=== PATIENT | male | born 1945 | race Caucasian/White ===

== ENCOUNTER → 2021-01-18 12:25 | Outpatient (BNVA) | payer MEDICARE, SELFPAY | PROVIDERS: PCP Internal Medicine Endocrinology, Diabetes & Metabolism; Visit Provider Internal Medicine Cardiovascular Disease | DX: I48.92 Unspecified atrial flutter (principal); I10 Essential (primary) hypertension; I49.3 Ventricular premature depolarization | CPT/HCPCS: 93005; 99212 ==

== ENCOUNTER → 2021-08-04 08:01 | Outpatient (REF) | payer MEDICARE, BC, SELFPAY ==
--- NOTE | ~2021-08-04 | NM_ITS ---
Lexiscan Myocardial perfusion study Indication: Preoperative cardiac vascular evaluation Technique: The patient was brought in for a Lexiscan perfusion study on 08/04/2021 and was injected 0.4 mg of Lexiscan intravenously. Within a minute of this injection 45 mCi of sestamibi was given intravenously. Images were obtained using the SPECT gamma camera interlaced with the gating device. Images were obtained in supine position. Resting perfusion study was performed on 08/05/2021. Patient was administered 45 mCi of sestamibi intravenously at rest. Images were then obtained in supine position. Total DLP 159mGy-cm. Images were processed with the software and compared side to side in short axis, horizontal long axis and vertical long axis views. Findings: Raw acquisition was reviewed. The stress perfusion study showed mildly diminished tracer uptake along the inferior wall. With CT attenuation correction, there seems to be improvement in inferior wall uptake and hence could reflect diaphragmatic attenuation artifact. Apical uptake lower with CT attenuation correction, but that is probably artifactual. The gated study shows normal LV systolic function with calculated LVEF of >70%. LV cavity is normal in size. The gated study shows normal wall thickening and contraction of segments. Resting study shows mildly diminished tracer uptake along the inferior wall that improves with CT attenuation correction. Gating at rest reveals normal wall motion with ejection fraction at 69%. The findings are consistent with no reversible defects. Mild fixed inferior defect likely from diaphragmatic attenuation artifact. NM/NM doretha perf SPECT rest & str Impression: 1. Myocardial perfusion imaging study shows likely normal myocardial perfusion. 2. Gated LVEF is > 70% during stress and 69% during rest. 3. Transient ischemic dilatation not present. EKG component of the test reported separately.
--- NOTE | 2021-08-04 08:04 | CA_ITS ---
Acquisition Time: 2021-08-04 08:04:46 Total Exercise Time: 00:02:00 Test Indications: Abnormal ECG Medications: ALBUTEROL APIXABAN DILTIAZEM INSULIN LISINOPRIL SIMVASTATIN INHALER Protocol: LEXISCAN Max HR: 094 BPM 65% of Pred: 144 BPM Max BP: 140/060 mmHG Max Work Load: 1.0 METS Pharmacological stress test with Lexiscan injection, while sitting and kicking his legs, without anginal symptoms, with isolated PACs, with normotensive response to injection, with nondiagnostic EKG for ischemia. In recovery he reported feeting flushed and strange which was treated with Aminophylline 75mg IVP to reverse Lexiscan with resolution of symptoms. Nuclear images pending. Test reviewed with Dr Arnett. Referred By: Reyes Arnett Overread By: BRENDA TIDWELL
== END ==
LOC: HO.CARD 08:01
PROVIDERS: Visit Provider Internal Medicine Cardiovascular Disease
DX: Z01.818 Encounter for other preprocedural examination (principal); I48.92 Unspecified atrial flutter; I49.3 Ventricular premature depolarization
CPT/HCPCS: 78452; 93017; A9500; J0280; J2785

== ENCOUNTER 2021-09-05 07:57 | Emergency (ER) | payer MEDICARE, BC, SELFPAY ==
--- NOTE | ~2021-09-05 | US_ITS ---
EXAMINATION: US VENOUS ULTRASOUND WITH DOPPLER LOWER EXTREMITY, RIGHT CLINICAL INFORMATION: Edema. COMPARISON: None TECHNIQUE: Ultrasound of the deep veins is performed from the hip to the calf with compression sonography and color and pulse Doppler assessment. Spectral analysis with color-flow imaging is performed. FINDINGS: There is normal venous compression and respiratory variation and augmented flow. The visualized common femoral vein, superficial femoral vein, profunda femoral vein, popliteal vein, and the trifurcation region shows no evidence of deep venous thrombosis. Peroneal vein not seen. There is no significant popliteal fossa cyst. If the patient's symptoms persist, followup ultrasound in 5 days 7 days might be of value to exclude proximal propagation from a non-visualized calf vein. US/US venous duplex LE RT IMPRESSION: No DVT demonstrated in the right lower extremity.
[2021-09-05 08:02] VITALS: BP 161/61; PULSE 83; RESP 20; TEMP 36.6; O2SAT 99; BMI 41.1
[2021-09-05 08:52] LABS: MANUAL DIFF FLAG NO
[2021-09-05 09:01] LABS: Basophils Absolute Auto 0.1 X10*3/uL (0.0-0.2); Basophils Percent Auto 1.4 % (0-2); Eosinophils Absolute Auto 0.3 X10*3/uL (0.0-0.4); Eosinophils Percent Auto 6.9 % (0-4); Hematocrit 36.8 % (42.0-52.0); Hemoglobin 11.9 g/dl (14.0-18.0); Imm Gran Abs Auto 0.01 X10*3/uL (0.00-0.03); Imm Gran Pct Auto 0.2 % (0.0-0.4); Lymphocytes Absolute Auto 0.7 X10*3/uL (1.2-4.9); Lymphocytes Percent Auto 14.5 % (20-40); Mean Corpuscular HGB Conc 32.3 g/dl (31.0-36.0); Mean Corpuscular Hemoglobin 30.2 pg (27.0-33.0); Mean Corpuscular Volume 93.4 fL (80.0-98.0); Mean Platelet Volume 9.3 fL (9.4-12.4); Monocytes Absolute Auto 0.5 X10*3/uL (0.1-1.2); Monocytes Percent Auto 10.3 % (2-11); Neutrophils Absolute Auto 3.3 x10*3/uL (2.0-8.3); Neutrophils Percent Auto 66.7 % (45-73); Platelet Count 245 X10*3/uL (160-400); Red Blood Count 3.94 X10*6/uL (4.60-5.80); Red Cell Distribution Width 12.1 % (11.0-16.0)
[2021-09-05 09:09] LABS: Lactic Acid 1.2 mmol/L (0.5-2.0)
[2021-09-05 09:14] LABS: Alanine Aminotransferase 10 U/L (0-40); Albumin Level 3.6 g/dL (3.5-5.0); Alkaline Phosphatase 62 U/L (39-117); Anion Gap 12 (12-20); Aspartate Amino Transferase 13 U/L (5-37); Bilirubin Total 0.5 mg/dL (0.0-1.0); Blood Urea Nitrogen 8 mg/dL (9-16); C Reactive Protein 0.39 mg/dL (< or = 0.50); Calcium 8.9 mg/dL (8.4-10.2); Carbon Dioxide 25 mmol/L (22-29); Chloride 108 mmol/L (96-108); Creatinine Clr Calc Pharmacy 95.1; Estimated Glomerular Filt Rate > 60; Glucose Random 91 mg/dL (60-115); Potassium 3.8 mmol/L (3.3-5.1); Sodium 141 mmol/L (135-145); Total Protein 5.8 g/dL (6.5-8.0)
[2021-09-05 09:44] LABS: COVID-19 Test Negative (Negative); IDNOW Serial# 16C4AD1C
[2021-09-05 10:27] LABS: Erythrocyte Sedimentation Rate 8 MM/HR (0-15)
--- NOTE | 2021-09-05 10:57 | ED_ITS ---
HPI - Extremity Injury (Lower) General Chief Complaint: Extremity Injury, Lower Stated Complaint: R leg pain Time Seen by Provider: 09/05/21 08:07 Source: patient Mode of arrival: ambulatory Limitations: no limitations History of Present Illness HPI Narrative: 76-year-old male who presents emergency department for evaluation of continued swelling, redness and pain of his right knee after receiving a total knee re placement on 08/10/2021 (26 days prior to arrival). The patient had his total knee replacement done at [facility]. He states that there were no complications from the surgery. He was placed Eliquis twice a day. He states that since the surgery he has noticed redness around his knee with significant swelling from his ankle to his knee. He states that this swelling and redness has not changed. He states that the pain that he was having postoperatively has improved but he still having pain in his lower extremity. He denied fever, chills, chest pain, shortness of breath, fatigue, cough, sore throat, abdominal pain, frequency, urgency or dysuria. He states that he has noticed rhinorrhea over the past 1-2 days. Patient states that his family was concerned that the leg was still swollen and they were concerned that he might have a blood clot to his leg so they encourage d him to go to the emergency department for evaluation. MD complaint: other (Right leg swelling and increased warmth) Onset (ago): day(s) () Severity: moderate Severity scale (1-10): 4 Exacerbating factors: nothing Other symptoms: none Related Data Home Medications Medication Instructions Recorded Confirmed albuterol sulfate 90 mcg/actuation 2 puff INHALATION Q4H PRN 01/18/21 01/18/21 aerosol inhaler fluticasone fur. 100 mcg-umeclid 100 INHALATION DAILY 01/18/21 01/18/21 62.5 mcg-vilant 25 mcg inhalat.powder insulin glargine 100 unit/mL (3 unit SUBCUT 01/18/21 01/18/21 mL) subcutaneous pen lisinopril 2.5 mg tablet 2.5 mg PO DAILY 01/18/21 01/18/21 simvastatin 10 mg tablet 10 mg PO BEDTIME 01/18/21 01/18/21 Previous Rx's Medication Instructions Recorded apixaban 5 mg tablet (Eliquis) 5 mg PO BID 90 Days #180 tab 12/01/20 diltiazem HCl 120 mg capsule,24 120 mg PO DAILY 90 Days #90 cap 03/17/21 hr,extended release Allergies Allergy/AdvReac Type Severity Reaction Status Date / Time No Known Allergies Allergy Unverified 03/26/20 15:26 Review of Systems Review of Systems: Yes all other systems are reviewed and are negative [facility] Past Medical History [facility] Narrative: Social history: The patient denies tobacco use. He drinks alcohol 2 times a week, denies drug use. Medical History COPD (chronic obstructive pulmonary disease) HTN (hypertension) Obesity Paroxysmal atrial flutter PVCs (premature ventricular contractions) Surgical History Hx of hernia repair Hx of knee surgery Hx of laparoscopic gastric banding Family History Family History Father No problems noted. Mother No problems noted. Social History Social History Alcohol intake: current Alcohol intake frequency: a few times a month Patient Tobacco Use Status: Former Tobacco user Use of substances other than those prescribed or required for medical reasons: No Advance Directives: Yes Advance Directives Information Provided: No Advance Directives on File: No Physical Exam Vital Signs: Vital Signs: Last Vital Signs Temp 97.8 F 09/05/21 08:02 Pulse 83 09/05/21 08:02 Resp 20 09/05/21 08:02 BP 161/61 H 09/05/21 08:02 Pulse Ox 99 09/05/21 08:02 BMI result Body Mass Index 41.1 Const: Other: Very pleasant and cooperative male patient, he does not appear to be in distress, answers all questions appropriately HENMT: Head: Yes normal to inspection, Yes normocephalic and Yes atraumatic Ears: external ears normal General nose exam: Normal external nose present Face and sinus: Yes normal facial exam Mouth: Normal oral and palatal mucosa present Throat: Yes posterior oropharynx normal Eyes: General: appearance normal, both eyes and all related structures Pupils: Equal, round and reactive pupils present Neck: Neck: Yes normal visual inspection, Yes no lymphadenopathy, Yes trachea midline and Yes supple Chest: Chest palpation & inspection: normal inspection of the chest and normal palpation of entire chest wall Resp: Effort & Inspection: normal respiratory effort and able to speak in complete sentences Auscultation: clear to auscultation bilaterally Cardio: Rate: regular rate Rhythm: regular rhythm Heart sounds: S1 normal heart sound present, S2 normal heart sound present and no murmurs GI: Inspection: Yes normal to inspection Palpation (GI): Soft to palpation, nontender and no guarding Auscultation: normal bowel sounds : General: Yes no CVA tenderness Back/Spine/Pelvis: Back: no CVA tenderness Skin: General skin exam: no rashes or lesions noted Neuro: Cranial nerves: Yes CN's II-XII intact bilaterally and Yes Equal, round and reactive pupils present Cognition (Neuro): normal cognition Motor exam (neuro): 5/5 motor strength present throughout Extrem: Other: There is nonpitting edema of the right lower extremity from the ankle to just above the knee, the knee does have some erythema with some slight increased warmth, there is no tenderness with palpation over the knee, has negative Homans sign bilaterally, his extremities neurovascular intact. Psych: Appearance: grossly normal Speech and movement: Normal speech and movement present Affect: normal affect Attitude: cooperative Thought process: Normal thought process present Thought content: Normal thought content present Course Course Course Narrative: 76-year-old male who presents emergency department for evaluation of swelling and erythema of his right lower extremity which is been persistent since his total knee replacement 26 days prior. The patient's vital signs revealed an elevated blood pressure of 161/61 otherwise were unremarkable. The patient's exam did reveal nonpitting edema of the right lower extremity from the ankle to just above the knee with some increased warmth and erythema over the knee joint. Laboratory evaluation revealed a normal WBC, non elevated CRP and ESR. Lactic acid was only 1.2. ultrasound of the right lower extremity revealed no DVT. The patient has no systemic symptoms to suggest that has an infection, his inflammatory markers are not elevated and his ultrasound was negative. Also he is on Eliquis prophylactically. Given these findings, I do not think that the patient has a DVT or infectious process and that the patient's swelling and erythema are related to postoperative changes which should improve over time. I did discuss this with the patient. The patient was given printed and verbal instructions advised return emergency department if his symptoms got worse. Blood cultures were obtained and are pending. MDM - Extremity Injury (Lower) Lab Data Result diagrams: 09/05/21 08:44 09/05/21 08:44 Labs: Lab Results 09/05/21 09/05/21 09/05/21 Range/Units 08:44 08:44 08:44 WBC 5.0 (4.8-10.8) X10*3/uL RBC 3.94 L (4.60-5.80) X10*6/uL Hgb 11.9 L (14.0-18.0) g/dl Hct 36.8 L (42.0-52.0) % MCV 93.4 (80.0-98.0) fL MCH 30.2 (27.0-33.0) pg MCHC 32.3 (31.0-36.0) g/dl RDW 12.1 (11.0-16.0) % Plt Count 245 (160-400) X10*3/uL MPV 9.3 L (9.4-12.4) fL Immature Gran % (Auto) 0.2 (0.0-0.4) % Neut % (Auto) 66.7 (45-73) % Lymph % (Auto) 14.5 L (20-40) % Sebastian % (Auto) 10.3 (2-11) % Eos % (Auto) 6.9 H (0-4) % Baso % (Auto) 1.4 (0-2) % Lymph # (Auto) 0.7 L (1.2-4.9) X10*3/uL Sebastian # (Auto) 0.5 (0.1-1.2) X10*3/uL Eos # (Auto) 0.3 (0.0-0.4) X10*3/uL Baso # (Auto) 0.1 (0.0-0.2) X10*3/uL Abs Immat Gran (auto) 0.01 (0.00-0.03) X10*3/uL Absolute Neuts (auto) 3.3 (2.0-8.3) x10*3/uL Absolute Nucleated RBC 0.000 (0.0-0.012) X10*3/uL Nucleated RBC % (auto) 0.0 (0.0-0.2) /100WBC ESR (0-15) MM/HR Sodium 141 (135-145) mmol/L Potassium 3.8 (3.3-5.1) mmol/L Chloride 108 (96-108) mmol/L Carbon Dioxide 25 (22-29) mmol/L Anion Gap 12 (12-20) BUN 8 L (9-16) mg/dL Creatinine 0.79 (0.5-1.4) mg/dL Estim Creat Clear Calc 95.1 Estimated GFR > 60 Random Glucose 91 (60-115) mg/dL Lactic Acid (0.5-2.0) mmol/L Calcium 8.9 (8.4-10.2) mg/dL Total Bilirubin 0.5 (0.0-1.0) mg/dL AST 13 (5-37) U/L ALT 10 (0-40) U/L Alkaline Phosphatase 62 (39-117) U/L C-Reactive Protein 0.39 (< or = 0.50) mg/dL Total Protein 5.8 L (6.5-8.0) g/dL Albumin 3.6 (3.5-5.0) g/dL COVID-19 ([facility]) Negative (Negative) COVID-19 Clin Com See Note 09/05/21 09/05/21 Range/Units 08:44 08:44 WBC (4.8-10.8) X10*3/uL RBC (4.60-5.80) X10*6/uL Hgb (14.0-18.0) g/dl Hct (42.0-52.0) % MCV (80.0-98.0) fL MCH (27.0-33.0) pg MCHC (31.0-36.0) g/dl RDW (11.0-16.0) % Plt Count (160-400) X10*3/uL MPV (9.4-12.4) fL Immature Gran % (Auto) (0.0-0.4) % Neut % (Auto) (45-73) % Lymph % (Auto) (20-40) % Sebastian % (Auto) (2-11) % Eos % (Auto) (0-4) % Baso % (Auto) (0-2) % Lymph # (Auto) (1.2-4.9) X10*3/uL Sebastian # (Auto) (0.1-1.2) X10*3/uL Eos # (Auto) (0.0-0.4) X10*3/uL Baso # (Auto) (0.0-0.2) X10*3/uL Abs Immat Gran (auto) (0.00-0.03) X10*3/uL Absolute Neuts (auto) (2.0-8.3) x10*3/uL Absolute Nucleated RBC (0.0-0.012) X10*3/uL Nucleated RBC % (auto) (0.0-0.2) /100WBC ESR 8 (0-15) MM/HR Sodium (135-145) mmol/L Potassium (3.3-5.1) mmol/L Chloride (96-108) mmol/L Carbon Dioxide (22-29) mmol/L Anion Gap (12-20) BUN (9-16) mg/dL Creatinine (0.5-1.4) mg/dL Estim Creat Clear Calc Estimated GFR Random Glucose (60-115) mg/dL Lactic Acid 1.2 (0.5-2.0) mmol/L Calcium (8.4-10.2) mg/dL Total Bilirubin (0.0-1.0) mg/dL AST (5-37) U/L ALT (0-40) U/L Alkaline Phosphatase (39-117) U/L C-Reactive Protein (< or = 0.50) mg/dL Total Protein (6.5-8.0) g/dL Albumin (3.5-5.0) g/dL COVID-19 ([facility]) (Negative) COVID-19 Clin Com Discharge Plan Discharge Clinical Impression: Right leg swelling, H/O total knee replacement Patient Disposition: Home, Self-Care Additional Instructions: The duplex ultrasound of your right leg revealed no evidence of a blood clot at this time, this is very reassuring. Also, since you are taking a blood thinner, a blood clot with a negative ultrasound is very unlikely. Your laboratory evaluation was also normal. Your inflammatory markers were not elevated (white blood cell count was normal, C reactive protein was normal, ESR was normal). Given these findings, I do not think that you have an infection and I believe that the redness and swelling are common after knee replacement and should im prove over time. Continue taking your medications as prescribed by your doctor. Follow-up with your doctor in 2 days. Please return to the emergency department if your symptoms get worse or if you develop any symptoms that are concerning to you. Prescriptions: No Action Eliquis 5 mg tablet 5 mg PO BID 90 Days Qty: 180 3RF diltiazem HCl 120 mg capsule,extended release 24 hr 120 mg PO DAILY 90 Days Qty: 90 3RF Basaglar KwikPen U-100 Insulin 100 unit/mL (3 mL) insulin pen subcut 0RF Trelegy Ellipta 100-62.5-25 mcg blister with device 100 inhalation DAILY 0RF albuterol sulfate 90 mcg/actuation HFA aerosol inhaler 2 puff inhalation Q4H PRN (Reason: wheezing) 0RF lisinopril 2.5 mg tablet 2.5 mg PO DAILY 0RF simvastatin 10 mg tablet 10 mg PO BEDTIME 0RF
== END 2021-09-05 11:16 | disposition home or self-care (01) ==
PROVIDERS: Emergency Provider Emergency Medicine Emergency Medical Services; PCP Internal Medicine
DX: M79.604 Pain in right leg (principal); R60.0 Localized edema; J34.89 Other specified disorders of nose and nasal sinuses; Z79.899 Other long term (current) drug therapy; Z20.822 Contact with and (suspected) exposure to COVID-19; Z87.891 Personal history of nicotine dependence
CPT/HCPCS: 36415; 80053; 83605; 85025; 85652; 86140; 87040; 87635; 93971; 99284

== ENCOUNTER → 2021-12-29 08:23 | Outpatient (REF) | payer MEDICARE, BC, SELFPAY ==
--- NOTE | 2021-12-29 08:27 | CA_ITS ---
Transthoracic Echocardiogram Patient (Last, First, Middle): Zane Tomlin J Gender: Male Date of : 1945 Age: 76 Procedure Date: 12/29/2021 Procedure Type: Transthoracic Echocardiogram Location: OP Height: 167.64 cm Weight: 113.4 kg BSA: 2.20 m2 Heart Rate: 53 bpm BP: 103 / 55 mmHg Car Refinisher: SB Referring MD: Reyes Arnett MD Automation Controls Specialist: Reyes Arnett MD Symptoms: I48.92 - Unspecified atrial flutter Study Quality: Fair/BSA/Contrast ECG Rhythm: Sinus arryhthmia bradycardia Conclusions: - 1. Technically limited study despite use of contrast agent 2. Mildly dilated left ventricle with normal LV ejection fraction of 60 65% with pseudonormal filling pattern 3. Cardiac valves not well visualized with cardiac valvular Doppler appearing within normal limits Findings Procedure Information Contrast agent, definity, is being given per protocol without apparent complications. Left Ventricle Mildly increased left ventricular cavity size. There is normal left ventricular wall thickness. The left ventricular systolic function is normal. The visually estimated ejection fraction is between 60-65%. Spectral Doppler is indicative of a pseudonormal filling pattern. Right Ventricle Mildly increased right ventricular cavity size. Atria The left atrium was not well visualized. There is lipomatous hypertrophy of the interatrial septum. There is a mobile atrial septum noted. There is no evidence of interatrial shunt. The right atrium was not well visualized. Aortic Valve The aortic valve was not well visualized. There is no aortic valve stenosis. There is no aortic valve regurgitation. Mitral Valve There is mild anterior and posterior mitral leaflet thickening. There is trace mitral valve regurgitation. There is no mitral valve stenosis. Pulmonic Valve The pulmonic valve was not well visualized. Tricuspid Valve The tricuspid valve was not well visualized. Tricuspid regurgitation envelope is inadequate for calculation of right ventricular systolic pressure. Great Vessels All visible segments of the aorta are normal in size. The pulmonary artery was not well visualized. Venous The inferior vena cava is normal in size. Pericardium/Pleural The pericardium was not well visualized. Prior Study Comparison No significant change compared to prior study dated: 06/19/2019. Measurements 2D Linear Measurements IVSd: 1.07 0.6-0.9/0.6-1.0 cm LVIDd: 5.95 3.9-5.3/4.2-5.9 cm LVIDd Index: 2.70 2.4-3.2/2.2-3.1 cm/m2 LVIDs: 3.44 2.0-3.6 cm LVPWd: 0.89 0.7-1.1 cm LA Diam: 5.20 2.7-3.8/3.0-4.0 cm LAIDs Index: 2.36 1.5-2.3 cm/m2 LV Mass: 295.05 67-162/88-224 g LV Mass Index: 134.12 43-95/49-115 g/m2 LVOT Diam: 2.20 3.0+(-)1.3 cm 2D Systolic Function EF 4C: 60.80 >55% EF 2C: 70.90 >55% EF BiP: 66.00 >55% Mitral Valve MV Pk E: 0.93 MV PK A: 0.59 MV Decel Time: 120.00 E/A: 1.60 E'Lateral: 6.30 E'Medial: 4.88 E/E' Med: 19.00 E/E' Lat: 14.70 PHT: 35.00 MVA PHT: 6.29 Decel Mcleod: 7.69 Aortic Valve AoV Pk Alan: 1.19 AoV Mn Alan: 0.91 AoV VTI: 0.29 AoV Pk Grad: 6.00 Aov Mn Grad: 4.00 LETITIA Cont.VTI: 2.83 LVOT LVOT Pk Alan: 0.95 LVOT Mn Alan: 0.65 LVOT VTI: 0.22 LVOT Pk Grad: 4.00 LVOT Mn Grad: 2.00 LVOT Diam: 2.20 LVOT Area: 3.80 Diastolic Function MV Pk E: 0.93 MV Pk A: 0.59 E/A: 1.60 E'Medial: 4.88 E/E' Med: 19.00 E' Laterial: 6.30 E/E' Lat: 14.70 Right Ventricle TAPSE (mm): 18.90 TVS' Alan: 11.60 Tricuspid Valve RA Press: 8.00 Great Vessels Aorta Sinus of Valsalva: 3.10 2.0-3.5 cm Ao Asc: 3.40 2.1-3.4 cm Pulmonary Valve PV Pk Alan: 0.84 Peak PV Grad: 3.00 Updated in Other Vendor System with Status of Final Reyes Arnett MD electronically signed on 12/30/2021 11:42:15 AM with status of Final
== END ==
LOC: HO.CARD 08:23
PROVIDERS: Visit Provider Internal Medicine Cardiovascular Disease
DX: I48.92 Unspecified atrial flutter (principal)
CPT/HCPCS: 93306; Q9957

== ENCOUNTER → 2022-01-17 12:48 | Outpatient (BNVA) | payer MEDICARE, BC, SELFPAY | PROVIDERS: PCP Internal Medicine; Visit Provider Internal Medicine Cardiovascular Disease | DX: I48.92 Unspecified atrial flutter (principal); I10 Essential (primary) hypertension; Z79.01 Long term (current) use of anticoagulants | CPT/HCPCS: 93005; 99212 ==

== ENCOUNTER 2022-07-22 08:16 | Inpatient (IN) | payer MEDICARE, BC, SELFPAY ==
[2022-07-22] VITALS (10 sets, daily range): BP systolic 97–138; BP diastolic 47–76; PULSE 58–89; RESP 14–24; TEMP 36.1–37.7; O2SAT 95–97; BMI 40.8
--- NOTE | ~2022-07-22 | XR_ITS ---
EXAMINATION: XR CHEST CLINICAL INFORMATION: Chest radiographs COMPARISON: Chest radiographs and chest CTA both dated 06/08/2019. TECHNIQUE: Frontal view of the chest was obtained. FINDINGS: Coarsely calcified pleural plaques are again seen bilaterally most pronounced in the right upper lobe with mild interval increase in calcification. The lungs otherwise appear clear. The heart and mediastinal structures are unremarkable. XR/XR chest 1V IMPRESSION: Coarsely calcified pleural plaques bilaterally with mild interval increase in calcifications since the 2019 studies. No definitive acute abnormality.
--- NOTE | 2022-07-22 08:21 | ECG_ITS ---
Test Reason : CHEST PAIN Blood Pressure : / mmHG Vent. Rate : 077 BPM Atrial Rate : 077 BPM P-R Int : 312 ms QRS Dur : 136 ms QT Int : 358 ms P-R-T Axes : 091 022 087 degrees QTc Int : 405 ms Atrial flutter Right bundle branch block Cannot rule out Inferior infarct (cited on or before 22-JUL-2022) Abnormal ECG When compared with ECG of 22-JUL-2022 08:44, No significant changes seen Referred By: Bob Goodson Electronically Signed By:Yemi Wing
--- NOTE | 2022-07-22 08:37 | ECG_ITS ---
Test Reason : sob Blood Pressure : / mmHG Vent. Rate : 085 BPM Atrial Rate : 000 BPM P-R Int : 000 ms QRS Dur : 136 ms QT Int : 374 ms P-R-T Axes : 000 013 059 degrees QTc Int : 445 ms Atrial flutter with variabke block Right bundle branch block Possible Inferior infarct , age undetermined Abnormal ECG When compared with ECG of 17-JUL-2019 13:54, Atrial flutter has replaced Sinus rhythm Referred By: Bob Goodson Electronically Signed By:Yemi Wing
--- NOTE | 2022-07-22 08:39 | ED_ITS ---
HPI - SOB/Dyspnea General Chief Complaint: Dyspnea Stated Complaint: Diff Breathing ?Afib Time Seen by Provider: 07/22/22 08:28 Source: patient Mode of arrival: ambulatory Limitations: no limitations History of Present Illness HPI Narrative: 77-year-old male with history of atrial flutter on Eliquis came in for fly luation of shortness of breath. Patient's symptoms started 5 days ago with shortness of breath mostly with exertion, patient also noted increased swelling in bilateral lower extremities, no palpitation, do not feel rapid heartbeat. No sick contacts, no recent travel, patient is a former smoker. Patient also been getting exertional chest pressure with the shortness of breath that is localized to the mid chest with no radiation only worsening by exercise and get better with rest. Patient with history of COPD use CPAP at nighttime does not need supplemental oxygen. Related Data Home Medications Medication Instructions Recorded Confirmed albuterol sulfate 90 mcg/actuation 2 puff inhalation Q4H PRN wheezing 01/18/21 01/17/22 aerosol inhaler fluticasone fur. 100 mcg-umeclid 100 inhalation DAILY 01/18/21 01/17/22 62.5 mcg-vilant 25 mcg inhalat.powder insulin glargine 100 unit/mL (3 unit subcut 01/18/21 01/17/22 mL) subcutaneous pen lisinopril 2.5 mg tablet 2.5 mg PO DAILY 01/18/21 01/17/22 simvastatin 10 mg tablet 10 mg PO BEDTIME 01/18/21 01/17/22 Previous Rx's Medication Instructions Recorded diltiazem HCl 120 mg capsule,24 120 mg PO DAILY 90 days #90 caps 11/24/21 hr,extended release apixaban 5 mg tablet (Eliquis) 5 mg PO BID #180 tabs 02/21/22 Allergies Allergy/AdvReac Type Severity Reaction Status Date / Time No Known Allergies Allergy Verified 01/17/22 13:09 Review of Systems Review of Systems: All other systems are reviewed and are negative Constitutional: Reports as per HPI and Reports no additional constitutional complaints Eyes: Reports as per HPI and Reports no additional eye complaints Reports system reviewed and no additional complaints, except as documented Cardiovascular: Reports as per HPI and Reports no additional cardiovascular complaints Respiratory: Reports as per HPI and Reports no additional respiratory complaints Gastrointestinal: Reports as per HPI and Reports no additional gastrointestinal complaints Genitourinary: Reports no additional female genitourinary complaints Musculoskeletal: Reports no additional musculoskeletal complaints Skin/Breast: Reports system reviewed and no additional complaints, except as docu Psychiatric: Reports no additional psychiatric complaints Endocrine: Reports no additional endocrine complaints Hematologic/Lymphatic: Reports no additional hematologic/lymphatic complaints Allergic/Immunologic: Reports no additional allergic/immunologic complaints Reports system reviewed and no additional complaints, except as documented and Reports Abnormal speech present [facility] Past Medical History Medical History COPD (chronic obstructive pulmonary disease) HTN (hypertension) Obesity Paroxysmal atrial flutter PVCs (premature ventricular contractions) Surgical History Hx of hernia repair Hx of knee surgery Hx of laparoscopic gastric banding Family History Family History Father No problems noted. Mother No problems noted. Social History Social History Alcohol intake: never Patient Tobacco Use Status: Former Tobacco user Smoked in Last 30 Days: No Use of substances other than those prescribed or required for medical reasons: No Advance Directives: Yes Advance Directives Information Provided: Yes Advance Directives on File: No Physical Exam Vital Signs: Vital Signs: Last Vital Signs Temp 99.9 F 07/22/22 13:59 Pulse 75 07/22/22 13:59 Resp 14 07/22/22 13:59 BP 115/69 07/22/22 13:59 Pulse Ox 96 07/22/22 13:59 O2 Del Method 07/22/22 13:59 BMI result Body Mass Index 40.8 Vital signs have been reviewed as appeared to be correct. Blood pressure normal. Heart rate normal. Respiration rate normal. Temperature normal. Oxygen saturation normal. Appearance: Alert. Oriented X3. No acute distress. Head: Normal external exam. Normocephalic. Atraumatic. No Pan signs noted. No raccoon eyes noted Eyes: PERRLA. EOMI. Conjunctiva and sclera normal. Eyelids normal. ENT: TM's Normal. Pharynx normal. Uvula midline. Moist mucous membranes. No trismus noted. No drooling noted. No muffled voice noted. Neck: Normal inspection. Neck supple. FROM. No adenopathy. Thyroid Normal. No meningeal signs. No neck mass noted. CVS: Normal heart rate and rhythm. Heart sound normal. No murmurs noted. Pulses normal throughout. Respiratory: No respiratory distress. Painless inspiration. Breath sounds normal. No wheezes/rales/rhonchi noted. Chest nontender. No accessory muscle usage noted or decreased air movement noted. Abdomen: Soft and nontender. Bowel sounds normal in all 4 quadrants. No distention noted. No organomegaly noted. No visible injury noted. Back: No CVA tenderness. Full range of motion noted. Skin: Skin warm and dry. Normal skin color. Normal skin turgor. No rashes/lesions/lacerations noted. Extremities: +2 lower extremity edema. Extremities exhibit normal range of motion. Extremities nontender. Neuro: Oriented X 3. Cranial nerve exam: II-XII are grossly intact No motor deficit. No sensory deficit. Reflexes normal. Course Course Course Narrative: 77-year-old male came in with exertional chest pain and shortness of breath mostly with exertion and relieved with rest. 1. Exam is consistent with CHF will start diuresis in the ED with Lasix 40 mg. 2. Cardiology consult is appreciated recommending to admit the patient, continue with Eliquis, diuresis if needed, CPAP at night time. Medications Administered Discontinued Medications Generic Name Dose Route Start Last Admin Trade Name Freq PRN Reason Stop Dose Admin Aspirin 81 mg 07/22/22 10:32 07/22/22 10:42 Aspirin Enteric Coated 81 Mg Tablet. PO 07/22/22 10:33 81 mg ONCE ONE Administration Metoprolol Tartrate 25 mg 07/22/22 10:34 07/22/22 10:42 Metoprolol Tartrate 25 Mg Tablet PO 07/22/22 10:35 25 mg ONCE ONE Administration Protocol Nitroglycerin 0.5 inch 07/22/22 10:32 07/22/22 10:42 Nitroglycerin 2 % Oint 1 Gm Packet TRANSDERMA 07/22/22 10:33 0.5 inch ONCE ONE Administration Medical Decision Making Differential Diagnosis Differential Diagnoses: The differential diagnosis associated with the presentation includes (CHF, ACS, non STEMI, pneumonia, COPD exacerbation.) Admission/Observation Consideration of admission/observation: Escalation of care including admission/o bservation considered Consult Healthcare Provider Management of the patient was discussed with: Hospitalist and Gas Operator (Dr. Wing.) Lab Data MDM Lab Attestation statement: I reviewed the patient's lab results. 07/22/22 09:04 07/22/22 09:04 Labs: Lab Results 07/22/22 07/22/22 07/22/22 Range/Units 09:04 09:04 09:04 WBC 9.9 (4.8-10.8) X10*3/uL RBC 4.46 L (4.60-5.80) X10*6/uL Hgb 13.6 L (14.0-18.0) g/dl Hct 39.3 L (42.0-52.0) % MCV 88.1 (80.0-98.0) fL MCH 30.5 (27.0-33.0) pg MCHC 34.6 (31.0-36.0) g/dl RDW 12.2 (11.0-16.0) % Plt Count 185 (160-400) X10*3/uL MPV 9.5 (9.4-12.4) fL Immature Gran % (Auto) 0.5 H (0.0-0.4) % Neut % (Auto) 82.4 H (45-73) % Lymph % (Auto) 5.0 L (20-40) % [place] % (Auto) 10.2 (2-11) % Eos % (Auto) 1.7 (0-4) % Baso % (Auto) 0.2 (0-2) % Lymph # (Auto) 0.5 L (1.2-4.9) X10*3/uL [place] # (Auto) 1.0 (0.1-1.2) X10*3/uL Eos # (Auto) 0.2 (0.0-0.4) X10*3/uL Baso # (Auto) 0.0 (0.0-0.2) X10*3/uL Abs Immat Gran (auto) 0.05 H (0.00-0.03) X10*3/uL Absolute Neuts (auto) 8.2 (2.0-8.3) x10*3/uL Absolute Nucleated RBC 0.000 (0.0-0.012) X10*3/uL Nucleated RBC % (auto) 0.0 (0.0-0.2) /100WBC Sodium 133 L (135-145) mmol/L Potassium 4.0 (3.3-5.1) mmol/L Chloride 101 (96-108) mmol/L Carbon Dioxide 23 (22-29) mmol/L Anion Gap 13 (12-20) BUN 17 H (9-16) mg/dL Creatinine 0.91 (0.5-1.4) mg/dL Estim Creat Clear Calc 80.9 Estimated GFR > 60 Random Glucose 191 H (60-115) mg/dL Lactic Acid (0.5-2.0) mmol/L Calcium 8.3 L D (8.4-10.2) mg/dL Total Bilirubin 1.2 H (0.0-1.0) mg/dL Direct Bilirubin 0.5 (0.0-0.5) mg/dL AST 21 (5-37) U/L ALT 34 (0-40) U/L Alkaline Phosphatase 68 (39-117) U/L Troponin I High Sens 103.2 H* (<3.5-35.0) ng/L B-Natriuretic Peptide (<100) pg/mL Total Protein 5.6 L (6.5-8.0) g/dL Albumin 3.3 L (3.5-5.0) g/dL Lipase 220 H (8-78) U/L Influenza Type A (PCR) (Negative) Influenza Type B (PCR) (Negative) RSV RNA Qual (PCR) (Negative) SARS-CoV-2 RNA (RT-PCR) (Negative) 07/22/22 07/22/22 07/22/22 Range/Units 09:04 09:04 09:04 WBC (4.8-10.8) X10*3/uL RBC (4.60-5.80) X10*6/uL Hgb (14.0-18.0) g/dl Hct (42.0-52.0) % MCV (80.0-98.0) fL MCH (27.0-33.0) pg MCHC (31.0-36.0) g/dl RDW (11.0-16.0) % Plt Count (160-400) X10*3/uL MPV (9.4-12.4) fL Immature Gran % (Auto) (0.0-0.4) % Neut % (Auto) (45-73) % Lymph % (Auto) (20-40) % [place] % (Auto) (2-11) % Eos % (Auto) (0-4) % Baso % (Auto) (0-2) % Lymph # (Auto) (1.2-4.9) X10*3/uL [place] # (Auto) (0.1-1.2) X10*3/uL Eos # (Auto) (0.0-0.4) X10*3/uL Baso # (Auto) (0.0-0.2) X10*3/uL Abs Immat Gran (auto) (0.00-0.03) X10*3/uL Absolute Neuts (auto) (2.0-8.3) x10*3/uL Absolute Nucleated RBC (0.0-0.012) X10*3/uL Nucleated RBC % (auto) (0.0-0.2) /100WBC Sodium (135-145) mmol/L Potassium (3.3-5.1) mmol/L Chloride (96-108) mmol/L Carbon Dioxide (22-29) mmol/L Anion Gap (12-20) BUN (9-16) mg/dL Creatinine (0.5-1.4) mg/dL Estim Creat Clear Calc Estimated GFR Random Glucose (60-115) mg/dL Lactic Acid 1.2 (0.5-2.0) mmol/L Calcium (8.4-10.2) mg/dL Total Bilirubin (0.0-1.0) mg/dL Direct Bilirubin (0.0-0.5) mg/dL AST (5-37) U/L ALT (0-40) U/L Alkaline Phosphatase (39-117) U/L Troponin I High Sens (<3.5-35.0) ng/L B-Natriuretic Peptide 742 H (<100) pg/mL Total Protein (6.5-8.0) g/dL Albumin (3.5-5.0) g/dL Lipase (8-78) U/L Influenza Type A (PCR) NEGATIVE (Negative) Influenza Type B (PCR) NEGATIVE (Negative) RSV RNA Qual (PCR) NEGATIVE (Negative) SARS-CoV-2 RNA (RT-PCR) NEGATIVE (Negative) 07/22/22 Range/Units 12:31 WBC (4.8-10.8) X10*3/uL RBC (4.60-5.80) X10*6/uL Hgb (14.0-18.0) g/dl Hct (42.0-52.0) % MCV (80.0-98.0) fL MCH (27.0-33.0) pg MCHC (31.0-36.0) g/dl RDW (11.0-16.0) % Plt Count (160-400) X10*3/uL MPV (9.4-12.4) fL Immature Gran % (Auto) (0.0-0.4) % Neut % (Auto) (45-73) % Lymph % (Auto) (20-40) % [place] % (Auto) (2-11) % Eos % (Auto) (0-4) % Baso % (Auto) (0-2) % Lymph # (Auto) (1.2-4.9) X10*3/uL [place] # (Auto) (0.1-1.2) X10*3/uL Eos # (Auto) (0.0-0.4) X10*3/uL Baso # (Auto) (0.0-0.2) X10*3/uL Abs Immat Gran (auto) (0.00-0.03) X10*3/uL Absolute Neuts (auto) (2.0-8.3) x10*3/uL Absolute Nucleated RBC (0.0-0.012) X10*3/uL Nucleated RBC % (auto) (0.0-0.2) /100WBC Sodium (135-145) mmol/L Potassium (3.3-5.1) mmol/L Chloride (96-108) mmol/L Carbon Dioxide (22-29) mmol/L Anion Gap (12-20) BUN (9-16) mg/dL Creatinine (0.5-1.4) mg/dL Estim Creat Clear Calc Estimated GFR Random Glucose (60-115) mg/dL Lactic Acid (0.5-2.0) mmol/L Calcium (8.4-10.2) mg/dL Total Bilirubin (0.0-1.0) mg/dL Direct Bilirubin (0.0-0.5) mg/dL AST (5-37) U/L ALT (0-40) U/L Alkaline Phosphatase (39-117) U/L Troponin I High Sens 102.9 H* (<3.5-35.0) ng/L B-Natriuretic Peptide (<100) pg/mL Total Protein (6.5-8.0) g/dL Albumin (3.5-5.0) g/dL Lipase (8-78) U/L Influenza Type A (PCR) (Negative) Influenza Type B (PCR) (Negative) RSV RNA Qual (PCR) (Negative) SARS-CoV-2 RNA (RT-PCR) (Negative) Independent Interpretation I performed an independent interpretation of an: EKG (Atrial flutter with 2-1 better, left axis deviation, RBBB, no change from previous EKG.) and Plain X-Ray (Chronic pleural Stephen calcification bilaterally) Radiology Impression Discussion of test interpretation with radiology: I have reviewed the radiologist's reading. Discharge Plan Discharge Clinical Impression: Congestive heart failure, Non-ST elevation HI (NSTEMI) Patient Disposition: Admitted As Inpatient Prescriptions: No Action diltiazem HCl 120 mg capsule,extended release 24 hr 120 mg PO DAILY 90 Days Qty: 90 3RF Eliquis 5 mg tablet 5 mg PO BID Qty: 180 2RF Antoniaglar Odalis U-100 Insulin 100 unit/mL (3 mL) insulin pen subcut Trelegy Ellipta 100-62.5-25 mcg blister with device 100 inhalation DAILY albuterol sulfate 90 mcg/actuation HFA aerosol inhaler 2 puff inhalation Q4H PRN (Reason: wheezing) lisinopril 2.5 mg tablet 2.5 mg PO DAILY simvastatin 10 mg tablet 10 mg PO BEDTIME
[2022-07-22 09:10] LABS: MANUAL DIFF FLAG NO
[2022-07-22 09:13] LABS: Basophils Percent Auto 0.2 % (0-2); Eosinophils Absolute Auto 0.2 X10*3/uL (0.0-0.4); Eosinophils Percent Auto 1.7 % (0-4); Hematocrit 39.3 % (42.0-52.0); Hemoglobin 13.6 g/dl (14.0-18.0); Imm Gran Abs Auto 0.05 X10*3/uL (0.00-0.03); Imm Gran Pct Auto 0.5 % (0.0-0.4); Lymphocytes Absolute Auto 0.5 X10*3/uL (1.2-4.9); Mean Corpuscular HGB Conc 34.6 g/dl (31.0-36.0); Mean Corpuscular Hemoglobin 30.5 pg (27.0-33.0); Mean Corpuscular Volume 88.1 fL (80.0-98.0); Mean Platelet Volume 9.5 fL (9.4-12.4); Monocytes Percent Auto 10.2 % (2-11); Neutrophils Absolute Auto 8.2 x10*3/uL (2.0-8.3); Neutrophils Percent Auto 82.4 % (45-73); Platelet Count 185 X10*3/uL (160-400); Red Blood Count 4.46 X10*6/uL (4.60-5.80); Red Cell Distribution Width 12.2 % (11.0-16.0); White Blood Count 9.9 X10*3/uL (4.8-10.8)
[2022-07-22 09:25] LABS: Lactic Acid 1.2 mmol/L (0.5-2.0)
[2022-07-22 09:31] LABS: Alanine Aminotransferase 34 U/L (0-40); Albumin Level 3.3 g/dL (3.5-5.0); Alkaline Phosphatase 68 U/L (39-117); Anion Gap 13 (12-20); Aspartate Amino Transferase 21 U/L (5-37); Bilirubin Direct 0.5 mg/dL (0.0-0.5); Bilirubin Total 1.2 mg/dL (0.0-1.0); Blood Urea Nitrogen 17 mg/dL (9-16); Calcium 8.3 mg/dL (8.4-10.2); Carbon Dioxide 23 mmol/L (22-29); Chloride 101 mmol/L (96-108); Creatinine Clr Calc Pharmacy 80.9; Estimated Glomerular Filt Rate > 60; Glucose Random 191 mg/dL (60-115); Lipase 220 U/L (8-78); Sodium 133 mmol/L (135-145); Total Protein 5.6 g/dL (6.5-8.0)
[2022-07-22 09:35] LABS: B Type Natriuretic Peptide 742 pg/mL (<100)
[2022-07-22 09:49] LABS: Influenza A PCR NEGATIVE (Negative); Influenza B PCR NEGATIVE (Negative); Resp Syncy Virus RNA Qual PCR NEGATIVE (Negative); SARS COV2 PCR INHOUSE NEGATIVE (Negative)
[2022-07-22 10:02] LABS: Troponin-I High Sensitivity 103.2 ng/L (<3.5-35.0)
[2022-07-22] MEDS: Nitroglycerin 2 % Oint 1 GM Packet 0.5 INCH TRANSDERMA (10:42)
[2022-07-22] MEDS: Aspirin Enteric Coated 81 MG TABLET.DR PO (10:42)
[2022-07-22] MEDS: Metoprolol Tartrate 25 MG TABLET PO (10:42)
[2022-07-22 13:14] LABS: Troponin-I High Sensitivity 102.9 ng/L (<3.5-35.0)
--- NOTE | 2022-07-22 14:22 | PM.IMHP ---
History of Present Illness Date of Service: 07/22/22 Attending physician on admission: Eliecer Gil Chief Complaint: Chest pain and worsening SOB Pt is a 77-year-old male with a PMH significant for?atrial flutter with successful cardioversion 3 years ago on Eliquis and diltiazem followed by Dr. Arnett, COPD, HTN, HLD, insulin-dependent DM 2, and CARLOS on CPAP who presents to the ED for?chest pressure and worsening SOB and cough for a little over a week. SOB is primarily exertional, but can also occur at rest. Cough has been productive, sometimes brown, black, or flecked with red. Chest pressure centered in the mid chest and does not radiate, lasts a few minutes at a time, mostly associated with coughing but can also occur at rest or with exertion. Patient endorses anorexia over the past week, says he has lost over 10 lb due to not eating. He has also been lightheaded and dizzy if he gets up quickly. Patient states that he has chronic lower leg swelling and has not noticed any increase to his edema. Today patient states he took off his CPAP machine and it took him 2 hours to catch his breath. He presents today primarily after noticing that his heart rate climbed to 110s and 120s and he could feel palpitations. Of note patient is a former smoker who quit over 40 years ago. In the ED labs were significant for no leukocytosis, troponin of 103.2 with repeat flat at 102.9, elevated lipase of 220 1, elevated BNP of 742, lactic acid WNL. CXR showed coarsely calcified pleural plaques bilaterally with mild interval increase in calcification since 2019, but no definitive acute abnormality. EKG showed AFib/atrail flutter with inverted T-waves in anterior leads and right bundle-branch block, repeat showed sinus rhythm with 1st degree AV block with nonspecific T-wave inversions. In the ED patient was treated with metoprolol, nitroglycerin, aspirin. Cardiology consulted and feels his presentation is more consistent with heart failure rather than stable or unstable angina. Patient will be admitted to telemetry for treatment and evaluation of CHF with IV Lasix. Review of Systems Review of Systems: SOB Productive cough Palpitations Chronic LLE Chest pressure Yes all other systems are reviewed and are negative [facility] Medical History COPD (chronic obstructive pulmonary disease) HTN (hypertension) Obesity Paroxysmal atrial flutter PVCs (premature ventricular contractions) Family History Father No problems noted. Mother No problems noted. Surgical History Hx of hernia repair Hx of knee surgery Hx of laparoscopic gastric banding Social History Alcohol intake: never Patient Tobacco Use Status: Former Tobacco user Smoked in Last 30 Days: No Use of substances other than those prescribed or required for medical reasons: No Advance Directives: Yes Advance Directives Information Provided: Yes Advance Directives on File: No Meds Allergies Allergy/AdvReac Type Severity Reaction Status Date / Time No Known Allergies Allergy Verified 01/17/22 13:09 Home Medications Medication Instructions Recorded Confirmed Last Taken Type albuterol sulfate 90 mcg/actuation 2 puff inhalation Q4H PRN wheezing 01/18/21 01/17/22 Unknown History aerosol inhaler fluticasone fur. 100 mcg-umeclid 100 inhalation DAILY 01/18/21 01/17/22 Unknown History 62.5 mcg-vilant 25 mcg inhalat.powder insulin glargine 100 unit/mL (3 unit subcut 01/18/21 01/17/22 Unknown History mL) subcutaneous pen lisinopril 2.5 mg tablet 2.5 mg PO DAILY 01/18/21 01/17/22 Unknown History simvastatin 10 mg tablet 10 mg PO BEDTIME 01/18/21 01/17/22 Unknown History Physical Exam Vital Signs and Narrative: Vital Signs: Last Vital Signs Temp 99.9 F 07/22/22 13:59 Pulse 75 07/22/22 13:59 Resp 14 07/22/22 13:59 BP 115/69 07/22/22 13:59 Pulse Ox 96 07/22/22 13:59 O2 Del Method 07/22/22 13:59 BMI result Body Mass Index 40.8 Constitutional: Alert, in no acute distress. Mental Status: Oriented to person, place and time. Eyes: Pupils are equal, round, and reactive to light. Ear, Nose, and Throat: Oropharynx clear, mucous membranes moist. Ears and nose without deformities. Trachea midline. Respiratory: Clear to auscultation bilaterally. No wheezing, rales, or rhonchi. Cardiovascular: S1, S2 regular. No murmurs, rubs, or gallops. Gastrointestinal: Abdomen soft, non-tender, non-distended. Normal bowel sounds. Neurologic: Cranial nerves II-XI are grossly intact. No focal neurological deficits. Moves all extremities spontaneously. Skin: No rashes or lesions noted. Musculoskeletal: No cyanosis or clubbing. Extremities: 1+ pitting edema bilaterally. Psychiatric: Normal mood and affect. Results Labs 07/22/22 09:04 07/22/22 09:04 Labs: Laboratory Results - last 24 hr 07/22/22 07/22/22 07/22/22 09:04 09:04 09:04 MCV 88.1 MCH 30.5 MCHC 34.6 RDW 12.2 Plt Count 185 MPV 9.5 Immature Gran % (Auto) 0.5 H Neut % (Auto) 82.4 H Lymph % (Auto) 5.0 L [place] % (Auto) 10.2 Eos % (Auto) 1.7 Baso % (Auto) 0.2 Lymph # (Auto) 0.5 L [place] # (Auto) 1.0 Eos # (Auto) 0.2 Baso # (Auto) 0.0 Abs Immat Gran (auto) 0.05 H Absolute Neuts (auto) 8.2 Absolute Nucleated RBC 0.000 Nucleated RBC % (auto) 0.0 Anion Gap 13 Estim Creat Clear Calc 80.9 Estimated GFR > 60 Random Glucose 191 H Lactic Acid Calcium 8.3 L D Total Bilirubin 1.2 H Direct Bilirubin 0.5 AST 21 ALT 34 Alkaline Phosphatase 68 Troponin I High Sens 103.2 H* B-Natriuretic Peptide Total Protein 5.6 L Albumin 3.3 L Lipase 220 H Influenza Type A (PCR) Influenza Type B (PCR) RSV RNA Qual (PCR) SARS-CoV-2 RNA (RT-PCR) 07/22/22 07/22/22 07/22/22 09:04 09:04 09:04 MCV MCH MCHC RDW Plt Count MPV Immature Gran % (Auto) Neut % (Auto) Lymph % (Auto) [place] % (Auto) Eos % (Auto) Baso % (Auto) Lymph # (Auto) [place] # (Auto) Eos # (Auto) Baso # (Auto) Abs Immat Gran (auto) Absolute Neuts (auto) Absolute Nucleated RBC Nucleated RBC % (auto) Anion Gap Estim Creat Clear Calc Estimated GFR Random Glucose Lactic Acid 1.2 Calcium Total Bilirubin Direct Bilirubin AST ALT Alkaline Phosphatase Troponin I High Sens B-Natriuretic Peptide 742 H Total Protein Albumin Lipase Influenza Type A (PCR) NEGATIVE Influenza Type B (PCR) NEGATIVE RSV RNA Qual (PCR) NEGATIVE SARS-CoV-2 RNA (RT-PCR) NEGATIVE 07/22/22 12:31 MCV MCH MCHC RDW Plt Count MPV Immature Gran % (Auto) Neut % (Auto) Lymph % (Auto) [place] % (Auto) Eos % (Auto) Baso % (Auto) Lymph # (Auto) [place] # (Auto) Eos # (Auto) Baso # (Auto) Abs Immat Gran (auto) Absolute Neuts (auto) Absolute Nucleated RBC Nucleated RBC % (auto) Anion Gap Estim Creat Clear Calc Estimated GFR Random Glucose Lactic Acid Calcium Total Bilirubin Direct Bilirubin AST ALT Alkaline Phosphatase Troponin I High Sens 102.9 H* B-Natriuretic Peptide Total Protein Albumin Lipase Influenza Type A (PCR) Influenza Type B (PCR) RSV RNA Qual (PCR) SARS-CoV-2 RNA (RT-PCR) Imaging Radiologist's Impressions: Impressions Chest X-Ray 07/22/22 09:13 IMPRESSION: Coarsely calcified pleural plaques bilaterally with mild interval increase in calcifications since the 2019 studies. No definitive acute abnormality. Assessment and Plan (1) Congestive heart failure: Status: Acute (2) Paroxysmal atrial flutter: Status: Acute Plan Pt is a 77-year-old male with a PMH significant for?atrial flutter with successful cardioversion 3 years ago on Eliquis and diltiazem followed by Dr. Arnett, COPD, HTN, HLD, insulin-dependent DM 2, and CARLOS on CPAP who presents to the ED for?chest pressure and worsening SOB and cough for a little over a week. Cardiology consulted and feels his presentation is more consistent with heart failure rather than stable or unstable angina. Patient will be admitted to telemetry for treatment and evaluation of CHF with IV Lasix. CHF, new onset SOB, cough, elevated BNP of 742, 1+ pitting lower leg edema Possibly secondary to atrial flutter Furosemide 40 mg IV b.i.d. Hold diltiazem Follow-up lytes, MG, I/O Echocardiogram report Cardiology consult Atrial flutter Continue Eliquis Stop diltiazem Admit to telemetry Chest pain/tightness Likely secondary to CHF and coughing, less likely ACS Troponins flat, EKGs with no evidence of acute ischemic changes Monitor on telemetry Cardiac consult Insulin-dependent DM2 Hold home meds SSI, Lantus Morbid obesity likely related to excess calories Encourage weight loss CARLOS CPAP at night HLD Continue statin HTN Continue lisinopril Full Code Attending:?Dr. Gil DVT Prophylaxis: on Eliquis Pt will require a hospitalization of at least two nights for treatment of?CHF with IV Lasix. Time Spent With Patient Time: Total time managing care of this patient today ____ minutes. Quality Stroke Does the patient have a stroke diagnosis?: No VTE Prior VTE?: No VTE Risk Level:: Medical - moderate - high VTE Device Contraindication: Treatment Not Indicated VTE Drug Contraindication: N/A - Med Ordered
--- NOTE | 2022-07-22 14:32 | PC.NURSE ---
DR. BALL(CARDIOLOGY) AT BEDSIDE PT AWARE OF PLAN OF CARE.
--- NOTE | 2022-07-22 14:58 | PC.NURSE ---
HOSP PA-C AT BEDSIDE, PT AWARE OF PLAN OF CARE FOR ADMISSION.
--- NOTE | 2022-07-22 15:00 | CA_ITS ---
Transthoracic Echocardiogram Limited Patient (Last, First, Middle): Zane Tomlin J Gender: Male Date of : 1945 Age: 77 Procedure Date: 07/22/2022 Procedure Type: Transthoracic Echocardiogram Limited Location: [facility] [place] Height: 167.64 cm Weight: 114.76 kg BSA: 2.21 m2 Heart Rate: bpm BP: 115 / 69 mmHg [employer]: Referring MD: Yemi Wing MD Symptoms: CHF Study Quality: Fair ECG Rhythm: Atrial Fibrillation Conclusions: - Normal left ventricular size and systolic function. There is moderately increased left ventricular wall thickness. The visually estimated ejection fraction is between 55-60%. - Mildly increased right ventricular cavity size. There is mildly decreased right ventricular systolic function. - The right ventricular systolic pressure is 39 mmHg. Moderately elevated right atrial pressure. Mild pulmonary hypertension is present. - Limited study Findings Left Ventricle Normal left ventricular size and systolic function. There is moderately increased left ventricular wall thickness. The visually estimated ejection fraction is between 55-60%. There is no evidence of regional wall motion abnormalities. Diastolic function is indeterminate on the basis of available data. Right Ventricle Mildly increased right ventricular cavity size. There is mildly decreased right ventricular systolic function. Tricuspid Valve The right ventricular systolic pressure is 39 mmHg. Moderately elevated right atrial pressure. Mild pulmonary hypertension is present. Venous The inferior vena cava is dilated and collapses greater than 50% with inspiration. Pericardium/Pleural There is no evidence of pericardial effusion. Prior Study Comparison No significant change compared to prior study dated: 12/29/2021. Measurements 2D Linear Measurements IVSd: 1.40 0.6-0.9/0.6-1.0 cm LVIDd: 4.94 3.9-5.3/4.2-5.9 cm LVIDd Index: 2.24 2.4-3.2/2.2-3.1 cm/m2 LVIDs: 3.26 2.0-3.6 cm LVPWd: 1.40 0.7-1.1 cm LV Mass: 356.86 67-162/88-224 g LV Mass Index: 161.47 43-95/49-115 g/m2 2D Systolic Function EF 4C: 52.40 >55% EF 2C: 63.70 >55% EF BiP: 60.60 >55% Tricuspid Valve TR Pk Alan: 2.69 TR Pk Grad: 29.00 RVSP: 39.00 Updated in Other Vendor System with Status of Final Yemi Wing MD electronically signed on 07/22/2022 11:50:13 PM with status of Final
--- NOTE | 2022-07-22 15:00 | PM.CNCAR ---
History of Present Illness History of Present Illness Date of Service: 07/22/22 Requesting physician: Bob Goodson Chief complaint: Diff Breathing ?Afib Narrative: 77-year-old gentleman was background history of atrial fibrillation and atrial flutter. He has background of hypertension. He is presenting for shortness of breath with progressive worsening. He has peripheral edema as well as PND episodes. He also experiencing some chest discomfort off and on which lasts for few seconds to a minute or 2. Feels the pressure-like sensation in his chest. He is saying this has been happening for long time. He has lung disease and background of COPD. He has been on Eliquis and diltiazem for atrial arrhythmia. Denying any significant palpitations right now but off and on has been experiencing some palpitations. He also has noticed that his heart rate has been faster in the last few days and has noticed his heart rate to be 110+. Taking medications regularly. Labs were reviewed and showed elevated BNP. [facility] Past Medical History Medical History COPD (chronic obstructive pulmonary disease) HTN (hypertension) Obesity Paroxysmal atrial flutter PVCs (premature ventricular contractions) Family History Family History Father No problems noted. Mother No problems noted. Surgical History Surgical History Hx of hernia repair Hx of knee surgery Hx of laparoscopic gastric banding Social History Social History Alcohol intake: never Patient Tobacco Use Status: Former Tobacco user Smoked in Last 30 Days: No Use of substances other than those prescribed or required for medical reasons: No Advance Directives: Yes Advance Directives Information Provided: Yes Advance Directives on File: No Meds Allergies Allergy/AdvReac Type Severity Reaction Status Date / Time No Known Allergies Allergy Verified 01/17/22 13:09 Home Medications Medication Instructions Recorded Confirmed Last Taken Type albuterol sulfate 90 mcg/actuation 2 puff inhalation Q4H PRN wheezing 01/18/21 01/17/22 Unknown History aerosol inhaler fluticasone fur. 100 mcg-umeclid 100 inhalation DAILY 01/18/21 01/17/22 Unknown History 62.5 mcg-vilant 25 mcg inhalat.powder insulin glargine 100 unit/mL (3 unit subcut 01/18/21 01/17/22 Unknown History mL) subcutaneous pen lisinopril 2.5 mg tablet 2.5 mg PO DAILY 01/18/21 01/17/22 Unknown History simvastatin 10 mg tablet 10 mg PO BEDTIME 01/18/21 01/17/22 Unknown History Physical Exam Vital Signs: Vital Signs: Last Vital Signs Temp 99.9 F 07/22/22 13:59 Pulse 75 07/22/22 13:59 Resp 14 07/22/22 13:59 BP 115/69 07/22/22 13:59 Pulse Ox 96 07/22/22 13:59 O2 Del Method 07/22/22 13:59 BMI result Body Mass Index 40.8 GENERAL APPEARANCE: in no acute distress, pleasant. NECK: no carotid bruit, + jugular venous distention. SKIN: no suspicious lesions, warm and dry. HEART: no murmurs, regular rate and rhythm. LUNGS: Mild end-expiratory wheeze. ABDOMEN: soft, nontender. EXTREMITIES: + edema. PERIPHERAL PULSES: equal. NEUROLOGIC: No gross deficits, AAO X 3 Objective Labs and Meds 07/22/22 09:04 07/22/22 09:04 Lab results: Laboratory Results - last 24 hr 07/22/22 07/22/22 07/22/22 09:04 09:04 09:04 WBC 9.9 RBC 4.46 L Hgb 13.6 L Hct 39.3 L MCV 88.1 MCH 30.5 MCHC 34.6 RDW 12.2 Plt Count 185 MPV 9.5 Immature Gran % (Auto) 0.5 H Neut % (Auto) 82.4 H Lymph % (Auto) 5.0 L [place] % (Auto) 10.2 Eos % (Auto) 1.7 Baso % (Auto) 0.2 Lymph # (Auto) 0.5 L [place] # (Auto) 1.0 Eos # (Auto) 0.2 Baso # (Auto) 0.0 Abs Immat Gran (auto) 0.05 H Absolute Neuts (auto) 8.2 Absolute Nucleated RBC 0.000 Nucleated RBC % (auto) 0.0 Sodium 133 L Potassium 4.0 Chloride 101 Carbon Dioxide 23 Anion Gap 13 BUN 17 H Creatinine 0.91 Estim Creat Clear Calc 80.9 Estimated GFR > 60 Random Glucose 191 H Lactic Acid Calcium 8.3 L D Total Bilirubin 1.2 H Direct Bilirubin 0.5 AST 21 ALT 34 Alkaline Phosphatase 68 Troponin I High Sens 103.2 H* B-Natriuretic Peptide Total Protein 5.6 L Albumin 3.3 L Lipase 220 H Influenza Type A (PCR) Influenza Type B (PCR) RSV RNA Qual (PCR) SARS-CoV-2 RNA (RT-PCR) 07/22/22 07/22/22 07/22/22 09:04 09:04 09:04 WBC RBC Hgb Hct MCV MCH MCHC RDW Plt Count MPV Immature Gran % (Auto) Neut % (Auto) Lymph % (Auto) [place] % (Auto) Eos % (Auto) Baso % (Auto) Lymph # (Auto) [place] # (Auto) Eos # (Auto) Baso # (Auto) Abs Immat Gran (auto) Absolute Neuts (auto) Absolute Nucleated RBC Nucleated RBC % (auto) Sodium Potassium Chloride Carbon Dioxide Anion Gap BUN Creatinine Estim Creat Clear Calc Estimated GFR Random Glucose Lactic Acid 1.2 Calcium Total Bilirubin Direct Bilirubin AST ALT Alkaline Phosphatase Troponin I High Sens B-Natriuretic Peptide 742 H Total Protein Albumin Lipase Influenza Type A (PCR) NEGATIVE Influenza Type B (PCR) NEGATIVE RSV RNA Qual (PCR) NEGATIVE SARS-CoV-2 RNA (RT-PCR) NEGATIVE 07/22/22 12:31 WBC RBC Hgb Hct MCV MCH MCHC RDW Plt Count MPV Immature Gran % (Auto) Neut % (Auto) Lymph % (Auto) [place] % (Auto) Eos % (Auto) Baso % (Auto) Lymph # (Auto) [place] # (Auto) Eos # (Auto) Baso # (Auto) Abs Immat Gran (auto) Absolute Neuts (auto) Absolute Nucleated RBC Nucleated RBC % (auto) Sodium Potassium Chloride Carbon Dioxide Anion Gap BUN Creatinine Estim Creat Clear Calc Estimated GFR Random Glucose Lactic Acid Calcium Total Bilirubin Direct Bilirubin AST ALT Alkaline Phosphatase Troponin I High Sens 102.9 H* B-Natriuretic Peptide Total Protein Albumin Lipase Influenza Type A (PCR) Influenza Type B (PCR) RSV RNA Qual (PCR) SARS-CoV-2 RNA (RT-PCR) Imaging Radiologist's impression: Impressions Chest X-Ray 07/22/22 09:13 IMPRESSION: Coarsely calcified pleural plaques bilaterally with mild interval increase in calcifications since the 2019 studies. No definitive acute abnormality. Assessment and Plan (1) Congestive heart failure: Status: Acute (2) HTN (hypertension): Status: Acute (3) Paroxysmal atrial flutter: Status: Acute Plan [age] gentleman presenting for congestive heart failure. He has history of atrial flutter and previously was cardioverted. His EKG currently is showing background atrial flutter but rates are well controlled. Recommend Lasix 40 mg IV b.i.d.. Check echocardiogram to assess LV for any structural issues. Stop the diltiazem for now. If heart rate is fast then I will try beta janet or digoxin. Further chest discomfort, it is quite atypical and has been present for long time. He previously had a Lexiscan in July 2021 which was okay. For now continue the Eliquis and no need to heparinize the patient. Will plan about ischemic evaluation as he improves from the heart failure point of view. Thank you for allowing me to participate in the care of your patient. Please feel free to contact me if you have any questions. Time Spent With Patient Time: Total time managing care of this patient today ____ minutes. Procedures Date of Service Date of Service: 07/22/22
--- NOTE | 2022-07-22 15:23 | PC.NURSE ---
BEDSIDE ECHOCARDIOGRAM IS BEING DONE AT THIS TIME.
--- NOTE | 2022-07-22 16:33 | PHA.MEDREC ---
Pharmacy Consult ? Medication Reconciliation Pharmacy has completed the medication reconciliation.
[2022-07-22] MEDS: 0.9 % Sodium Chloride Flush 3 ML SYRINGE IVFLUSH ×2 (17:13→20:56)
[2022-07-22 17:47] LABS: Glucose, Whole Blood 247 mg/dL (60-115)
--- NOTE | 2022-07-22 17:51 | MHC.CM.PN ---
IMM 07/22. CM met with admitted patient with bed assignment pending. A&Ox4. Lives w . Uses cane/walker for longer ambulation. Has no services. Pfizer x4. HCP at home. HCP/ Lucrecia Tomlin ([phone]). D/C plan: Home without services. will transport home. CM to follow for discharge needs.
[2022-07-22] MEDS: Insulin Lispro 100 UNIT/ML 3 ML VIAL SUBCUT ×2 (18:45→20:56)
[2022-07-22] MEDS: Furosemide 40 MG/4 ML VIAL IVPUSH (18:47)
[2022-07-22 19:04] LABS: Appearance Urine Clear; Color Urine Dark Yellow; Glucose Urine UA Negative (Negative); Leukocyte Esterase Urine Small (1+) (Negative); Nitrite Urine Negative (Negative); Specific Gravity - Urine 1.025 (1.005-1.025); UMIC TRIGGER UACC YES; Urine Blood Negative (Negative); Urine Ketones Trace mg/dL (Negative); Urine Protein 30 (1+) mg/dL (Neg-Trace)
[2022-07-22 19:11] LABS: Bacteria Urine None Seen (None Seen); Hyaline Casts Urine 0-2 /LPF (0-2); RBC Urine 0-2 /HPF (0-2); UACC Culture Trigger YES; WBC Urine 0-5 /HPF (0-5)
--- NOTE | 2022-07-22 19:15 | PC.NURSE ---
rn to rn report given to brittany andrews aware of plan of care for transfer to [facility].
[2022-07-22 20:23] LABS: Glucose, Whole Blood 182 mg/dL (60-115)
--- NOTE | 2022-07-23 | ECG_ITS ---
Test Reason : sob Blood Pressure : / mmHG Vent. Rate : 082 BPM Atrial Rate : 000 BPM P-R Int : 000 ms QRS Dur : 154 ms QT Int : 404 ms P-R-T Axes : 000 014 066 degrees QTc Int : 472 ms Atrial fibrillation Right bundle branch block Possible Inferior infarct (cited on or before 22-JUL-2022) Abnormal ECG When compared with ECG of 22-JUL-2022 10:35, Atrial fibrillation has replaced Sinus rhythm QT has lengthened Referred By: Mckayla Sunshine Electronically Signed By:Yemi Wing
[2022-07-23 03:36] VITALS: BP 145/70; PULSE 87; RESP 16; TEMP 36; O2SAT 95
[2022-07-23 05:57] LABS: Anion Gap 17 (12-20); Blood Urea Nitrogen 18 mg/dL (9-16); Calcium 8.3 mg/dL (8.4-10.2); Carbon Dioxide 21 mmol/L (22-29); Chloride 99 mmol/L (96-108); Creatinine Clr Calc Pharmacy 79.2; Estimated Glomerular Filt Rate > 60; Glucose Random 186 mg/dL (60-115); Magnesium 1.6 mg/dL (1.6-2.6); Potassium 3.7 mmol/L (3.3-5.1); Sodium 133 mmol/L (135-145)
[2022-07-23 06:40] VITALS: BMI 40.6
[2022-07-23 07:26] LABS: Glucose, Whole Blood 166 mg/dL (60-115)
[2022-07-23] MEDS: 0.9 % Sodium Chloride Flush 3 ML SYRINGE IVFLUSH ×3 (07:59→20:42)
[2022-07-23] MEDS: Apixaban 5 MG TABLET PO ×2 (07:59→20:43)
[2022-07-23] MEDS: Furosemide 40 MG/4 ML VIAL IVPUSH ×2 (07:59→17:03)
[2022-07-23] MEDS: lisinopriL 2.5 MG TABLET PO (07:59)
[2022-07-23 08:00] VITALS: BP 148/75; PULSE 98; RESP 16; TEMP 35.7; O2SAT 95
[2022-07-23] MEDS: Insulin Lispro 100 UNIT/ML 3 ML VIAL SUBCUT ×4 (08:06→20:42)
[2022-07-23 11:32] LABS: Glucose, Whole Blood 212 mg/dL (60-115)
--- NOTE | 2022-07-23 13:43 | P.PNCA_ITS ---
Subjective Subjective Date of Service: 07/23/22 Interval history: Seen and examined at bedside. Breathing improving. No further CP. Physical Exam Vital Signs: Last Vital Signs Temp 96.3 F L 07/23/22 08:00 Pulse 98 07/23/22 08:00 Resp 16 07/23/22 08:00 BP 148/75 H 07/23/22 08:00 Pulse Ox 95 07/23/22 08:00 O2 Del Method 07/23/22 08:00 BMI result Body Mass Index 40.6 GENERAL APPEARANCE: in no acute distress, pleasant. NECK: no carotid bruit, mild jugular venous distention. SKIN: no suspicious lesions, warm and dry. HEART: no murmurs, regular rate and rhythm. LUNGS: Mild end-expiratory wheeze. ABDOMEN: soft, nontender. EXTREMITIES: no edema. PERIPHERAL PULSES: equal. NEUROLOGIC: No gross deficits, AAO X 3 Objective Labs and Meds 07/22/22 09:04 07/23/22 05:16 Lab results: Laboratory Results - last 24 hr 07/22/22 07/22/22 07/22/22 17:43 18:56 20:17 Sodium Potassium Chloride Carbon Dioxide Anion Gap BUN Creatinine Estim Creat Clear Calc Estimated GFR POC Glucose 247 H 182 H Random Glucose Calcium Magnesium Urine Color Dark Yellow Urine Appearance Clear Urine pH 6.0 Ur Specific [place] 1.025 Urine Protein 30 (1+) H Urine Glucose (UA) Negative Urine Ketones Trace Urine Blood Negative Urine Nitrite Negative Ur Leukocyte Esterase Small (1+) H Urine RBC 0-2 Urine WBC 0-5 Ur Squamous Epith Cells 3-5 Urine Bacteria None Seen Hyaline Casts 0-2 07/23/22 07/23/22 07/23/22 05:16 07:22 11:27 Sodium 133 L Potassium 3.7 Chloride 99 Carbon Dioxide 21 L Anion Gap 17 BUN 18 H Creatinine 0.93 Estim Creat Clear Calc 79.2 Estimated GFR > 60 POC Glucose 166 H 212 H Random Glucose 186 H Calcium 8.3 L Magnesium 1.6 Urine Color Urine Appearance Urine pH Ur Specific [place] Urine Protein Urine Glucose (UA) Urine Ketones Urine Blood Urine Nitrite Ur Leukocyte Esterase Urine RBC Urine WBC Ur Squamous Epith Cells Urine Bacteria Hyaline Casts Progress Note: A&P Assessment and plan (1) Congestive heart failure: Status: Acute (2) Paroxysmal atrial flutter: Status: Acute Plan 77-year-old gentleman presenting with heart failure in the setting of atrial flutter. Previously had atrial flutter and underwent cardioversion. Volume status is improving. Continue IV diuretics today. Potentially can be changed to oral diuretics tomorrow but will examine him 1st. Continue Eliquis as before. He will need cardioversion on Monday. Adding beta-janet for rate control. Would avoid Cardizem for now. Thank you for allowing me to participate in the care of your patient. Please feel free to contact me if you have any questions. Time Spent With Patient Time: Total time managing care of this patient today ____ minutes. Progress Note: Quality Stroke Does the patient have a stroke diagnosis?: No Procedures Date of Service Date of Service: 07/23/22
[2022-07-23 15:25] VITALS: BP 127/63; PULSE 77; RESP 17; TEMP 36.8; O2SAT 97
[2022-07-23 15:34] LABS: Glucose, Whole Blood 186 mg/dL (60-115)
--- NOTE | 2022-07-23 15:49 | HO.PM.IMPN ---
Subjective Subjective Date of Service: 07/23/22 Interval History: seen and examined this morning follow up for chf no overnight events breathing better, no chest pain Review of Systems Review of Systems: Yes all other systems are reviewed and are negative Constitutional Constitutional: Denies chills and Denies fever(s) Cardiovascular Cardiovascular: Denies chest pain, Denies palpitations and Denies dyspnea Respiratory Respiratory: Denies cough and Denies dyspnea Endocrine Endocrine: Denies palpitations Physical Exam Vital Signs: Vital Signs: Last Vital Signs Temp 98.2 F 07/23/22 15:25 Pulse 77 07/23/22 15:25 Resp 17 07/23/22 15:25 BP 127/63 07/23/22 15:25 Pulse Ox 97 07/23/22 15:25 O2 Del Method 07/23/22 15:25 BMI result Body Mass Index 40.6 Const: General: cooperative, comfortable, alert and awake Nutritional Appearance: obese Orientation/consciousness: patient oriented x3 Resp: Effort & Inspection: normal respiratory effort and able to speak in complete sentences Auscultation: clear to auscultation bilaterally Cardio: Rate: regular rate Heart sounds: S1 normal heart sound present and S2 normal heart sound present GI: Inspection: No distended Palpation (GI): Soft to palpation and nontender Neuro: General: patient oriented x3 and CN's II-XI intact bilaterally Extrem: Other: trace ankle edema Objective Data Active Medications Acetaminophen (Acetaminophen 325 Mg Tablet) 650 mg PO Q6H PRN PRN Reason: Pain, Mild (Pain Scale 1-3) Apixaban (Apixaban 5 Mg Tablet) 5 mg PO BID [facility] Last Admin: 07/23/22 07:59 Dose: 5 mg Documented By: COTEMA Atorvastatin Calcium (Atorvastatin Calcium 10 Mg Tablet) 10 mg PO BEDTIME [facility] Dextrose (Dextrose 50 % 25 Gm/50 Ml Syringe) 25 gm IVPUSH Q15M PRN; Protocol PRN Reason: per Hypoglycemia Standing Ord. Docusate Sodium (Docusate Sodium 100 Mg Capsule) 100 mg PO DAILY PRN PRN Reason: Constipation Furosemide (Furosemide 40 Mg/4 Ml Vial) 40 mg IVPUSH BID@0900,1800 [facility]; Protocol Last Admin: 07/23/22 07:59 Dose: 40 mg Documented By: COTEMA Glucose (Glucose Gel 15 Gm Gel..Gram.) 15 gm PO Q15M PRN; Protocol PRN Reason: per Hypoglycemia Standing Ord. Insulin Human Lispro (Insulin Lispro 100 Unit/Ml 3 Ml Vial) 0 unit SUBCUT QIDACHS [facility]; Protocol Last Admin: 07/23/22 11:54 Dose: 4 unit Documented By: KADEEM Lisinopril (Lisinopril 2.5 Mg Tablet) 2.5 mg PO DAILY [facility]; Protocol Last Admin: 07/23/22 07:59 Dose: 2.5 mg Documented By: KADEEM Metoprolol Tartrate (Metoprolol Tartrate 25 Mg Tablet) 25 mg PO BID [facility]; Protocol Non-Formulary Medication (Guxysxrswbb-Vzxzvzktr-Nngkgedg [Trelegy Ellipta]) 1 puff INHALE DAILY [facility] Ondansetron HCl (Ondansetron Hcl 4 Mg/2 Ml Vial) 4 mg IVPUSH Q8H PRN PRN Reason: Nausea and Vomiting Sodium Chloride (0.9 % Sodium Chloride Flush 3 Ml Syringe) 3 ml IVFLUSH QSHIFT [facility] Last Admin: 07/23/22 07:59 Dose: 3 ml Documented By: KADEEM Labs 07/22/22 09:04 07/23/22 05:16 Labs: Laboratory Results - last 24 hr 07/22/22 07/22/22 07/22/22 17:43 18:56 20:17 Anion Gap Estim Creat Clear Calc Estimated GFR POC Glucose 247 H 182 H Random Glucose Calcium Magnesium Urine Color Dark Yellow Urine Appearance Clear Urine pH 6.0 Ur Specific [place] 1.025 Urine Protein 30 (1+) H Urine Glucose (UA) Negative Urine Ketones Trace Urine Blood Negative Urine Nitrite Negative Ur Leukocyte Esterase Small (1+) H Urine RBC 0-2 Urine WBC 0-5 Ur Squamous Epith Cells 3-5 Urine Bacteria None Seen Hyaline Casts 0-2 07/23/22 07/23/22 07/23/22 05:16 07:22 11:27 Anion Gap 17 Estim Creat Clear Calc 79.2 Estimated GFR > 60 POC Glucose 166 H 212 H Random Glucose 186 H Calcium 8.3 L Magnesium 1.6 Urine Color Urine Appearance Urine pH Ur Specific [place] Urine Protein Urine Glucose (UA) Urine Ketones Urine Blood Urine Nitrite Ur Leukocyte Esterase Urine RBC Urine WBC Ur Squamous Epith Cells Urine Bacteria Hyaline Casts 07/23/22 15:27 Anion Gap Estim Creat Clear Calc Estimated GFR POC Glucose 186 H Random Glucose Calcium Magnesium Urine Color Urine Appearance Urine pH Ur Specific [place] Urine Protein Urine Glucose (UA) Urine Ketones Urine Blood Urine Nitrite Ur Leukocyte Esterase Urine RBC Urine WBC Ur Squamous Epith Cells Urine Bacteria Hyaline Casts Microbiology Microbiology Results: Microbiology 07/22/22 Unknown Urine Culture - Preliminary Urine clean catch - Urine carvajal top No growth to date. 07/22/22 09:05 Blood Culture - Preliminary Blood - Venous No growth after 24 hours. 07/22/22 09:04 Blood Culture - Preliminary Blood - Venous No growth after 24 hours. Assessment and Plan (1) Congestive heart failure: Status: Acute (2) Paroxysmal atrial flutter: Status: Acute Plan Pt is a 77-year-old male with a PMH significant for?atrial flutter with successful cardioversion 3 years ago on Eliquis and diltiazem followed by Dr. Arnett, COPD, HTN, HLD, insulin-dependent DM 2, and CARLOS on CPAP who presents to the ED for?chest pressure and worsening SOB and cough for a little over a week. Cardiology consulted and feels his presentation is more consistent with heart failure rather than stable or unstable angina. Patient will be admitted to telemetry for treatment and evaluation of CHF with IV Lasix. acute chf previous echo with preserved EF secondary to atrial flutter continue 40 mg IV b.i.d. Follow-up lytes, MG, I/O Echocardiogram report Cardiology following Atrial flutter HR controlled Continue Eliquis Stop diltiazem, started on BB likely CV on monday Chest pain/tightness atypical. Troponins flat, EKGs with no evidence of acute ischemic changes likely r/t demand from CHF Insulin-dependent DM2 SSI, POCs resume on insulin if pocs elevated Morbid obesity BMI 40.6 likely contributing to sob CARLOS CPAP at night HLD Continue statin HTN Continue lisinopril, metoprolol Full Code Attending:?Dr. Bonilla DVT Prophylaxis: on Eliquis Requires ongoing inpatient hospitalization for management of acute CHF and probable need for cardioversion Time Spent With Patient Time: Total time managing care of this patient today ____ minutes. Quality Stroke Does the patient have a stroke diagnosis?: No VTE Prior VTE?: No VTE Risk Level:: Medical - moderate - high VTE Device Contraindication: Treatment Not Indicated VTE Drug Contraindication: N/A - Med Ordered
[2022-07-23 19:53] VITALS: BP 135/82; PULSE 88; RESP 16; TEMP 36.2; O2SAT 93
[2022-07-23 20:07] LABS: Glucose, Whole Blood 236 mg/dL (60-115)
[2022-07-23 20:24] VITALS: PULSE 82; RESP 20; O2SAT 94
[2022-07-23] MEDS: Metoprolol Tartrate 25 MG TABLET PO (20:42)
[2022-07-23] MEDS: Atorvastatin Calcium 10 MG TABLET PO (20:43)
[2022-07-24 03:16] VITALS: BP 133/66; PULSE 77; RESP 18; TEMP 36; O2SAT 94
[2022-07-24 07:08] VITALS: BP 133/62; PULSE 90; RESP 16; TEMP 37.1; O2SAT 97
[2022-07-24 07:27] LABS: Glucose, Whole Blood 182 mg/dL (60-115)
[2022-07-24 07:27] LABS: Anion Gap 13 (12-20); Blood Urea Nitrogen 17 mg/dL (9-16); Calcium 8.4 mg/dL (8.4-10.2); Carbon Dioxide 29 mmol/L (22-29); Chloride 94 mmol/L (96-108); Creatinine Clr Calc Pharmacy 84.4; Estimated Glomerular Filt Rate > 60; Glucose Random 184 mg/dL (60-115); Potassium 3.8 mmol/L (3.3-5.1); Sodium 132 mmol/L (135-145)
[2022-07-24] MEDS: 0.9 % Sodium Chloride Flush 3 ML SYRINGE IVFLUSH ×3 (08:10→20:27)
[2022-07-24] MEDS: Apixaban 5 MG TABLET PO ×2 (08:10→20:23)
[2022-07-24] MEDS: lisinopriL 2.5 MG TABLET PO (08:10)
[2022-07-24] MEDS: Insulin Lispro 100 UNIT/ML 3 ML VIAL SUBCUT ×4 (08:10→20:24)
[2022-07-24] MEDS: Metoprolol Tartrate 25 MG TABLET PO ×2 (08:10→20:24)
[2022-07-24] MEDS: Furosemide 40 MG/4 ML VIAL IVPUSH (08:10)
[2022-07-24 10:39] LABS: Appearance Urine Clear; Color Urine Yellow; Glucose Urine UA Negative (Negative); Leukocyte Esterase Urine Negative (Negative); Nitrite Urine Negative (Negative); Urine Blood Negative (Negative); Urine Ketones Negative (Negative); Urine Protein Negative (Neg-Trace)
--- NOTE | 2022-07-24 11:20 | P.PNCA_ITS ---
Subjective Subjective Date of Service: 07/24/22 Interval history: Seen examined at bedside. Feeling better. Overall improved. Physical Exam Vital Signs: Last Vital Signs Temp 98.7 F 07/24/22 07:08 Pulse 90 07/24/22 07:08 Resp 16 07/24/22 07:08 BP 133/62 07/24/22 07:08 Pulse Ox 97 07/24/22 07:08 O2 Del Method 07/24/22 07:08 BMI result Body Mass Index 40.6 GENERAL APPEARANCE: in no acute distress, pleasant. NECK: no carotid bruit, no significant jugular venous distention. SKIN: no suspicious lesions, warm and dry. HEART: no murmurs, regular rate and rhythm. LUNGS: Clear to auscultation. ABDOMEN: soft, nontender. EXTREMITIES: no edema. PERIPHERAL PULSES: equal. NEUROLOGIC: No gross deficits, AAO X 3 Objective Labs and Meds 07/22/22 09:04 07/24/22 05:42 Lab results: Laboratory Results - last 24 hr 07/23/22 07/23/22 07/23/22 11:27 15:27 19:56 Sodium Potassium Chloride Carbon Dioxide Anion Gap BUN Creatinine Estim Creat Clear Calc Estimated GFR POC Glucose 212 H 186 H 236 H Random Glucose Calcium Urine Color Urine Appearance Urine pH Ur Specific [place] Urine Protein Urine Glucose (UA) Urine Ketones Urine Blood Urine Nitrite Ur Leukocyte Esterase 07/24/22 07/24/22 07/24/22 05:42 07:08 10:18 Sodium 132 L Potassium 3.8 Chloride 94 L Carbon Dioxide 29 Anion Gap 13 BUN 17 H Creatinine 0.87 Estim Creat Clear Calc 84.4 Estimated GFR > 60 POC Glucose 182 H Random Glucose 184 H Calcium 8.4 Urine Color Yellow Urine Appearance Clear Urine pH 6.0 Ur Specific [place] 1.010 Urine Protein Negative Urine Glucose (UA) Negative Urine Ketones Negative Urine Blood Negative Urine Nitrite Negative Ur Leukocyte Esterase Negative Progress Note: A&P Assessment and plan (1) Congestive heart failure: Status: Acute (2) Paroxysmal atrial flutter: Status: Acute Plan 77-year-old gentleman presenting with congestive heart failure and atrial flutter. Heart rate control is good. Diuresed with IV Lasix. I think he can be changed to p.o. Lasix 40 mg b.i.d.. Continue to hold diltiazem. Toprol 25 mg b.i.d.. Keep NPO for potential cardioversion tomorrow. Thank you for allowing me to participate in the care of your patient. Please feel free to contact me if you have any questions. Time Spent With Patient Time: Total time managing care of this patient today ____ minutes. Progress Note: Quality Stroke Does the patient have a stroke diagnosis?: No Procedures Date of Service Date of Service: 07/24/22
[2022-07-24 12:10] LABS: Glucose, Whole Blood 205 mg/dL (60-115)
[2022-07-24 12:22] VITALS: BP 103/63; PULSE 84; RESP 20; TEMP 36; O2SAT 96
--- NOTE | 2022-07-24 13:52 | HO.PM.IMPN ---
Subjective Subjective Date of Service: 07/24/22 Interval History: seen and examined this morning follow up for chf breathing well this morning. no chest pain or palpitations had ? one episode of hematuria this am, has since resolved Review of Systems Review of Systems: Yes all other systems are reviewed and are negative Constitutional Constitutional: Denies chills and Denies fever(s) Cardiovascular Cardiovascular: Denies chest pain, Denies palpitations and Denies dyspnea Respiratory Respiratory: Denies cough and Denies dyspnea Gastrointestinal Gastrointestinal: Denies abdominal pain, Denies nausea and Denies vomiting Endocrine Endocrine: Denies palpitations Physical Exam Vital Signs: Vital Signs: Last Vital Signs Temp 96.8 F 07/24/22 12:22 Pulse 84 07/24/22 12:22 Resp 20 07/24/22 12:22 BP 103/63 07/24/22 12:22 Pulse Ox 96 07/24/22 12:22 O2 Del Method 07/24/22 12:22 BMI result Body Mass Index 40.6 Const: General: cooperative, comfortable and alert Nutritional Appearance: obese Orientation/consciousness: patient oriented x3 Resp: Effort & Inspection: normal respiratory effort and able to speak in complete sentences Auscultation: clear to auscultation bilaterally Cardio: Rate: regular rate Heart sounds: S1 normal heart sound present and S2 normal heart sound present GI: Inspection: No distended Palpation (GI): Soft to palpation and nontender Neuro: General: patient oriented x3 and CN's II-XI intact bilaterally Extrem: Other: trace leg edema Objective Data Active Medications Acetaminophen (Acetaminophen 325 Mg Tablet) 650 mg PO Q6H PRN PRN Reason: Pain, Mild (Pain Scale 1-3) Albuterol Sulfate (Albuterol Sulfate 90 Mcg 8 Gm Inhaler) 2 puff INHALE Q4H PRN PRN Reason: wheezing Apixaban (Apixaban 5 Mg Tablet) 5 mg PO BID [facility] Last Admin: 07/24/22 08:10 Dose: 5 mg Documented By: COTEMA Atorvastatin Calcium (Atorvastatin Calcium 10 Mg Tablet) 10 mg PO BEDTIME [facility] Last Admin: 07/23/22 20:43 Dose: 10 mg Documented By: CASTILM Dextrose (Dextrose 50 % 25 Gm/50 Ml Syringe) 25 gm IVPUSH Q15M PRN; Protocol PRN Reason: per Hypoglycemia Standing Ord. Docusate Sodium (Docusate Sodium 100 Mg Capsule) 100 mg PO DAILY PRN PRN Reason: Constipation Furosemide (Furosemide 40 Mg Tablet) 40 mg PO BID@0900,1800 [facility]; Protocol Glucose (Glucose Gel 15 Gm Gel..Gram.) 15 gm PO Q15M PRN; Protocol PRN Reason: per Hypoglycemia Standing Ord. Insulin Human Lispro (Insulin Lispro 100 Unit/Ml 3 Ml Vial) 0 unit SUBCUT QIDACHS [facility]; Protocol Last Admin: 07/24/22 12:34 Dose: 4 unit Documented By: COTEMA Lisinopril (Lisinopril 2.5 Mg Tablet) 2.5 mg PO DAILY [facility]; Protocol Last Admin: 07/24/22 08:10 Dose: 2.5 mg Documented By: COTEMA Metoprolol Tartrate (Metoprolol Tartrate 25 Mg Tablet) 25 mg PO BID [facility]; Protocol Last Admin: 07/24/22 08:10 Dose: 25 mg Documented By: SUNNYEMA Non-Formulary Medication (Xrembwjdqcc-Ggdensizx-Yidhdqep [Trelegy Ellipta]) 1 puff INHALE DAILY [facility] Ondansetron HCl (Ondansetron Hcl 4 Mg/2 Ml Vial) 4 mg IVPUSH Q8H PRN PRN Reason: Nausea and Vomiting Sodium Chloride (0.9 % Sodium Chloride Flush 3 Ml Syringe) 3 ml IVFLUSH QSHIFT [facility] Last Admin: 07/24/22 08:10 Dose: 3 ml Documented By: KADEEM Labs 07/22/22 09:04 07/24/22 05:42 Labs: Laboratory Results - last 24 hr 07/23/22 07/23/22 07/24/22 15:27 19:56 05:42 Anion Gap 13 Estim Creat Clear Calc 84.4 Estimated GFR > 60 POC Glucose 186 H 236 H Random Glucose 184 H Calcium 8.4 Urine Color Urine Appearance Urine pH Ur Specific [place] Urine Protein Urine Glucose (UA) Urine Ketones Urine Blood Urine Nitrite Ur Leukocyte Esterase 07/24/22 07/24/22 07/24/22 07:08 10:18 11:04 Anion Gap Estim Creat Clear Calc Estimated GFR POC Glucose 182 H 205 H Random Glucose Calcium Urine Color Yellow Urine Appearance Clear Urine pH 6.0 Ur Specific [place] 1.010 Urine Protein Negative Urine Glucose (UA) Negative Urine Ketones Negative Urine Blood Negative Urine Nitrite Negative Ur Leukocyte Esterase Negative Microbiology Microbiology Results: Microbiology 07/22/22 09:05 Blood Culture - Preliminary Blood - Venous No growth after 48 hours. 07/22/22 09:04 Blood Culture - Preliminary Blood - Venous No growth after 48 hours. 07/22/22 Unknown Urine Culture - Final Urine clean catch - Urine carvajal top Assessment and Plan (1) Congestive heart failure: Status: Acute (2) Paroxysmal atrial flutter: Status: Acute Plan Pt is a 77-year-old male with a PMH significant for?atrial flutter with successful cardioversion 3 years ago on Eliquis and diltiazem followed by Dr. Arnett, COPD, HTN, HLD, insulin-dependent DM 2, and CARLOS on CPAP who presents to the ED for?chest pressure and worsening SOB and cough for a little over a week. Cardiology consulted and feels his presentation is more consistent with heart failure rather than stable or unstable angina. Patient will be admitted to telemetry for treatment and evaluation of CHF with IV Lasix. acute HFpEF echo with LVEF 55-60% secondary to atrial flutter s/p IV lasix, will transition to po lasix 40 bid Follow-up lytes, I/O Cardiology following paroxysmal Atrial flutter HR controlled Continue Eliquis Stop diltiazem started on lopressor this admission likely CV on tuesday 07/25 Chest pain/tightness atypical. Troponins flat, EKGs with no evidence of acute ischemic changes likely r/t demand from CHF Insulin-dependent DM2 SSI, POCs resume on insulin if pocs elevated Morbid obesity BMI 40.6 likely contributing to sob CARLOS CPAP at night HLD Continue statin HTN Continue lisinopril, metoprolol Full Code Attending:?Dr. Price DVT Prophylaxis: on Eliquis Requires ongoing inpatient hospitalization for management of acute CHF and probable need for cardioversion Time Spent With Patient Time: Total time managing care of this patient today ____ minutes. Quality Stroke Does the patient have a stroke diagnosis?: No VTE Prior VTE?: No VTE Risk Level:: Medical - moderate - high VTE Device Contraindication: Treatment Not Indicated VTE Drug Contraindication: N/A - Med Ordered
[2022-07-24 15:04] VITALS: BP 152/77; PULSE 85; RESP 19; TEMP 37.3; O2SAT 95
[2022-07-24 16:07] LABS: Glucose, Whole Blood 191 mg/dL (60-115)
[2022-07-24] MEDS: Furosemide 40 MG TABLET PO (17:01)
[2022-07-24 19:11] VITALS: BP 131/60; PULSE 81; RESP 17; TEMP 36.7; O2SAT 96
[2022-07-24 20:01] LABS: Glucose, Whole Blood 247 mg/dL (60-115)
[2022-07-24] MEDS: Atorvastatin Calcium 10 MG TABLET PO (20:24)
[2022-07-24 22:30] VITALS: RESP 18
[2022-07-25 03:23] VITALS: BP 118/66; PULSE 74; RESP 18; TEMP 36.1; O2SAT 95
[2022-07-25 07:11] VITALS: BP 109/55; PULSE 94; RESP 19; TEMP 36.4; O2SAT 96
[2022-07-25 07:19] VITALS: BP 96/50; PULSE 100; RESP 19; TEMP 36.5; O2SAT 99
[2022-07-25 07:44] LABS: Glucose, Whole Blood 239 mg/dL (60-115)
[2022-07-25 07:46] LABS: Anion Gap 16 (12-20); Blood Urea Nitrogen 16 mg/dL (9-16); Calcium 8.4 mg/dL (8.4-10.2); Carbon Dioxide 25 mmol/L (22-29); Chloride 94 mmol/L (96-108); Creatinine Clr Calc Pharmacy 81.6; Estimated Glomerular Filt Rate > 60; Glucose Random 227 mg/dL (60-115); Potassium 3.6 mmol/L (3.3-5.1); Sodium 131 mmol/L (135-145)
[2022-07-25] MEDS: lisinopriL 2.5 MG TABLET PO (08:11)
[2022-07-25] MEDS: Metoprolol Tartrate 25 MG TABLET PO (08:11)
[2022-07-25] MEDS: Apixaban 5 MG TABLET PO (08:11)
[2022-07-25] MEDS: Furosemide 40 MG TABLET PO (08:11)
[2022-07-25] MEDS: Insulin Lispro 100 UNIT/ML 3 ML VIAL SUBCUT ×2 (08:12→11:29)
[2022-07-25] MEDS: 0.9 % Sodium Chloride Flush 3 ML SYRINGE IVFLUSH (08:13)
--- NOTE | 2022-07-25 08:53 | ECG_ITS ---
Test Reason : cp Blood Pressure : / mmHG Vent. 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
[2022-07-25 11:10] LABS: Glucose, Whole Blood 170 mg/dL (60-115)
--- NOTE | 2022-07-25 11:19 | HO.PM.IMPN ---
Subjective Subjective Date of Service: 07/25/22 Interval History: seen and examined this morning follow up for chf breathing well this morning. no chest pain or palpitations Review of Systems Review of Systems: Yes all other systems are reviewed and are negative Constitutional Constitutional: Denies chills and Denies fever(s) Cardiovascular Cardiovascular: Denies chest pain, Denies palpitations and Denies dyspnea Respiratory Respiratory: Denies cough and Denies dyspnea Gastrointestinal Gastrointestinal: Denies abdominal pain, Denies nausea and Denies vomiting Endocrine Endocrine: Denies palpitations Physical Exam Vital Signs: Vital Signs: Last Vital Signs Temp 97.7 F 07/25/22 07:19 Pulse 100 07/25/22 07:19 Resp 19 07/25/22 07:19 BP 96/50 L 07/25/22 07:19 Pulse Ox 99 07/25/22 07:19 O2 Del Method 07/25/22 07:19 BMI result Body Mass Index 40.6 Appearing in no acute distress lung sounds are clear to auscultation heart regular rate rhythm, clear S1, S2 positive bowel sounds, abdomen is soft, nontender neuro patient is alert x3, no focal deficits Objective Data Active Medications Acetaminophen (Acetaminophen 325 Mg Tablet) 650 mg PO Q6H PRN PRN Reason: Pain, Mild (Pain Scale 1-3) Albuterol Sulfate (Albuterol Sulfate 90 Mcg 8 Gm Inhaler) 2 puff INHALE Q4H PRN PRN Reason: wheezing Apixaban (Apixaban 5 Mg Tablet) 5 mg PO BID [facility] Last Admin: 07/25/22 08:11 Dose: 5 mg Documented By: GAIL Atorvastatin Calcium (Atorvastatin Calcium 10 Mg Tablet) 10 mg PO BEDTIME [facility] Last Admin: 07/24/22 20:24 Dose: 10 mg Documented By: GENARO Dextrose (Dextrose 50 % 25 Gm/50 Ml Syringe) 25 gm IVPUSH Q15M PRN; Protocol PRN Reason: per Hypoglycemia Standing Ord. Docusate Sodium (Docusate Sodium 100 Mg Capsule) 100 mg PO DAILY PRN PRN Reason: Constipation Fluticasone/Vilanterol (Fluticasone/Vilanterol 100/25 Blst.W.Dev) 1 puff INHALE RDAILY [facility] Last Admin: 07/25/22 11:13 Dose: Not Given Documented By: JEZ Non-Admin Reason: See Note Furosemide (Furosemide 40 Mg Tablet) 40 mg PO BID@0900,1800 [facility]; Protocol Last Admin: 07/25/22 08:11 Dose: 40 mg Documented By: GAIL Glucose (Glucose Gel 15 Gm Gel..Gram.) 15 gm PO Q15M PRN; Protocol PRN Reason: per Hypoglycemia Standing Ord. Insulin Human Lispro (Insulin Lispro 100 Unit/Ml 3 Ml Vial) 0 unit SUBCUT QIDACHS [facility]; Protocol Last Admin: 07/25/22 08:12 Dose: 4 unit Documented By: GAIL Lisinopril (Lisinopril 2.5 Mg Tablet) 2.5 mg PO DAILY [facility]; Protocol Last Admin: 07/25/22 08:11 Dose: 2.5 mg Documented By: GAIL Metoprolol Tartrate (Metoprolol Tartrate 25 Mg Tablet) 25 mg PO BID [facility]; Protocol Last Admin: 07/25/22 08:11 Dose: 25 mg Documented By: GAIL Ondansetron HCl (Ondansetron Hcl 4 Mg/2 Ml Vial) 4 mg IVPUSH Q8H PRN PRN Reason: Nausea and Vomiting Sodium Chloride (0.9 % Sodium Chloride Flush 3 Ml Syringe) 3 ml IVFLUSH QSHIFT [facility] Last Admin: 07/25/22 08:13 Dose: 3 ml Documented By: GAIL Tiotropium Mellen (Tiotropium Mellen 18 Mcg Cap.W.Dev) 1 puff INHALE RDAILY [facility] Last Admin: 07/25/22 11:13 Dose: Not Given Documented By: JEZ Non-Admin Reason: See Note Labs 07/22/22 09:04 07/25/22 07:01 Labs: Laboratory Results - last 24 hr 07/24/22 07/24/22 07/24/22 11:04 15:34 19:34 Anion Gap Estim Creat Clear Calc Estimated GFR POC Glucose 205 H 191 H 247 H Random Glucose Calcium 07/25/22 07/25/22 07/25/22 07:01 07:09 11:06 Anion Gap 16 Estim Creat Clear Calc 81.6 Estimated GFR > 60 POC Glucose 239 H 170 H Random Glucose 227 H Calcium 8.4 Microbiology Microbiology Results: Microbiology 07/22/22 09:05 Blood Culture - Preliminary Blood - Venous No growth after 48 hours. 07/22/22 09:04 Blood Culture - Preliminary Blood - Venous No growth after 48 hours. 07/22/22 Unknown Urine Culture - Final Urine clean catch - Urine carvajal top Assessment and Plan (1) Congestive heart failure: Status: Acute (2) Paroxysmal atrial flutter: Status: Acute Plan Pt is a 77-year-old male with a PMH significant for?atrial flutter with successful cardioversion 3 years ago on Eliquis and diltiazem followed by Dr. Arnett, COPD, HTN, HLD, insulin-dependent DM 2, and CARLOS on CPAP who presents to the ED for?chest pressure and worsening SOB and cough for a little over a week. Cardiology consulted and feels his presentation is more consistent with heart failure rather than stable or unstable angina. Patient will be admitted to telemetry for treatment and evaluation of CHF with IV Lasix. Acute HFpEF echo with LVEF 55-60% secondary to atrial flutter po lasix 40 bid Follow-up lykaren, I/O Cardiology following Paroxysmal Atrial flutter HR controlled Continue Eliquis started on lopressor this admission cardioversion today Chest pain/tightness atypical. Troponins flat, EKGs with no evidence of acute ischemic changes likely r/t demand from CHF Insulin-dependent DM2 SSI, POCs resume on insulin if pocs elevated Morbid obesity BMI 40.6 likely contributing to sob CARLOS CPAP at night HLD Continue statin HTN Continue lisinopril, metoprolol Full Code Attending:?Dr. Gil DVT Prophylaxis: on Eliquis Requires ongoing inpatient hospitalization for management of acute CHF and probable need for cardioversion Time Spent With Patient Time: Total time managing care of this patient today ____ minutes. Quality Stroke Does the patient have a stroke diagnosis?: No VTE Prior VTE?: No VTE Risk Level:: Medical - moderate - high VTE Device Contraindication: Treatment Not Indicated VTE Drug Contraindication: N/A - Med Ordered
--- NOTE | 2022-07-25 12:44 | PM.PNCARD ---
Subjective Subjective Date of Service: 07/25/22 Principal diagnosis: CHF, AFib Interval history: Patient presents with congestive in the setting of recurrent atrial fibrillation flutter. Patient currently remains in atrial fibrillation. Blood pressure is borderline low. Breathing better compared to when he came in. Denies any palpitations. Review of Systems Constitutional: Reports no additional constitutional complaints Cardiovascular: Denies chest pain, Denies leg edema, Denies lightheadedness, Denies palpitations and Denies dyspnea Respiratory: Reports no additional respiratory complaints and Denies dyspnea Gastrointestinal: Reports no additional gastrointestinal complaints Genitourinary: Reports no additional male genitourinary complaints Musculoskeletal: Reports no additional musculoskeletal complaints Skin/Breast: Reports system reviewed and no additional complaints, except as docu Psychiatric: Reports no additional psychiatric complaints Endocrine: Denies palpitations Physical Exam Vital Signs: Last Vital Signs Temp 97.7 F 07/25/22 07:19 Pulse 100 07/25/22 07:19 Resp 19 07/25/22 07:19 BP 96/50 L 07/25/22 07:19 Pulse Ox 99 07/25/22 07:19 O2 Del Method 07/25/22 07:19 BMI result Body Mass Index 40.6 GENERAL APPEARANCE: in no acute distress, pleasant. NECK: no carotid bruit, no significant jugular venous distention. SKIN: no suspicious lesions, warm and dry. HEART: no murmurs, regular rate and rhythm. LUNGS: Clear to auscultation. ABDOMEN: soft, nontender. EXTREMITIES: no edema. PERIPHERAL PULSES: equal. NEUROLOGIC: No gross deficits, AAO X 3 Objective Labs and Meds 07/22/22 09:04 07/25/22 07:01 Lab results: Laboratory Results - last 24 hr 07/24/22 07/24/22 07/25/22 15:34 19:34 07:01 Sodium 131 L Potassium 3.6 Chloride 94 L Carbon Dioxide 25 Anion Gap 16 BUN 16 Creatinine 0.90 Estim Creat Clear Calc 81.6 Estimated GFR > 60 POC Glucose 191 H 247 H Random Glucose 227 H Calcium 8.4 07/25/22 07/25/22 07:09 11:06 Sodium Potassium Chloride Carbon Dioxide Anion Gap BUN Creatinine Estim Creat Clear Calc Estimated GFR POC Glucose 239 H 170 H Random Glucose Calcium Progress Note: A&P Assessment and plan (1) Persistent atrial fibrillation: Status: Acute Assessment and Plan: Persistent atrial fibrillation causing heart failure and hospitalization. I would agree with pursuing rhythm control approach at this point time. Given patient having recurrent atrial flutter fibrillation most likely require antiarrhythmic drug support. Will most likely use amiodarone in the short run and eventually if his heart failure symptoms and syndrome appears control may switch to an alternative therapy. Continue full oral anticoagulation Eliquis. (2) CHF exacerbation: Status: Acute Assessment and Plan: Admitted with CHF exacerbation. Doing very well from clinical perspective. Switch to Lasix 40 mg daily. Add Aldactone 12.5 mg to his regimen. CHF education to be provided. Pursue rhythm control approach as above. If stable by tomorrow will most likely discharge at follow-up as outpatient. Follow-up BMP and BNP tomorrow Will continue to follow Time Spent With Patient Time: Total time managing care of this patient today ____ minutes. Progress Note: Quality Stroke Does the patient have a stroke diagnosis?: No Procedures Date of Service Date of Service: 07/25/22
[2022-07-25 14:20] VITALS: BP 141/72; PULSE 91; RESP 18; TEMP 36.7; O2SAT 97
[2022-07-25 14:45] LABS: Glucose, Whole Blood 171 mg/dL (60-115)
--- NOTE | 2022-07-25 15:19 | MHC.SHP ---
Pre-Procedural Eval Section A Date of Service: 07/25/22 The patient is an INPATIENT: Yes Changes since office visit: Yes New Medical Problems and Yes Patient answered all questions; No Cold of Flu in the past 2 weeks and No Changes in Medication The History & Physical has been completed within 30 days and I have reviewed it.: Yes Section B Chief Complaint: SOB, Cough, Palpitations Allergies: Allergies Allergy/AdvReac Type Severity Reaction Status Date / Time No Known Allergies Allergy Verified 01/17/22 13:09 Plan I have reviewed the history and physical and performed a pertinent physical examination on my patient. No changes have occurred unless specified. Time Spent With Patient Time: Total time managing care of this patient today ____ minutes.
--- NOTE | 2022-07-25 15:23 | HO.ANESPROP2 ---
HPI - Anesthesia Eval Consult details Narrative: cardioversion [facility] Active Problems Active Problems: All Active Problems (Updated 07/25/22 @ 12:46 by Reyes Arnett MD) CHF exacerbation (Acute) Persistent atrial fibrillation (Acute) Congestive heart failure (Acute) Non-ST elevation DC (NSTEMI) (Acute) PVCs (premature ventricular contractions) (Acute) HTN (hypertension) (Acute) Paroxysmal atrial flutter (Acute) Past Medical History Medical History COPD (chronic obstructive pulmonary disease) HTN (hypertension) Obesity Paroxysmal atrial flutter PVCs (premature ventricular contractions) Family History Family History Father No problems noted. Mother No problems noted. Family history of problems with anesthesia: No Surgical History Surgical History Hx of hernia repair Hx of knee surgery Hx of laparoscopic gastric banding History of Problems with Anesthesia: No Social History Social History Household Members: Spouse Household Members Other:: 1 Housing: House Do you presently have visiting nurse or other home services: No Alcohol intake: never Patient Tobacco Use Status: Former Tobacco user Quit Date: 40 years ago Tobacco use type: Cigarette e-Cigarette/Vaping Use: Never Used Second Hand Smoke Exposure: No service: No Current occupational status: retired Meds Allergies Allergy/AdvReac Type Severity Reaction Status Date / Time No Known Allergies Allergy Verified 01/17/22 13:09 Active Medications: Current Medications Acetaminophen (Acetaminophen 325 Mg Tablet) 650 mg PO Q6H PRN PRN Reason: Pain, Mild (Pain Scale 1-3) Albuterol Sulfate (Albuterol Sulfate 90 Mcg 8 Gm Inhaler) 2 puff INHALE Q4H PRN PRN Reason: wheezing Apixaban (Apixaban 5 Mg Tablet) 5 mg PO BID [facility] Last Admin: 07/25/22 08:11 Dose: 5 mg Atorvastatin Calcium (Atorvastatin Calcium 10 Mg Tablet) 10 mg PO BEDTIME [facility] Last Admin: 07/24/22 20:24 Dose: 10 mg Dextrose (Dextrose 50 % 25 Gm/50 Ml Syringe) 25 gm IVPUSH Q15M PRN; Protocol PRN Reason: per Hypoglycemia Standing Ord. Docusate Sodium (Docusate Sodium 100 Mg Capsule) 100 mg PO DAILY PRN PRN Reason: Constipation Fluticasone/Vilanterol (Fluticasone/Vilanterol 100/25 Blst.W.Dev) 1 puff INHALE RDAILY [facility] Last Admin: 07/25/22 11:13 Dose: Not Given Furosemide (Furosemide 40 Mg Tablet) 40 mg PO BID@0900,1800 [facility]; Protocol Last Admin: 07/25/22 08:11 Dose: 40 mg Glucose (Glucose Gel 15 Gm Gel..Gram.) 15 gm PO Q15M PRN; Protocol PRN Reason: per Hypoglycemia Standing Ord. Insulin Human Lispro (Insulin Lispro 100 Unit/Ml 3 Ml Vial) 0 unit SUBCUT QIDACHS [facility]; Protocol Last Admin: 07/25/22 11:29 Dose: 2 unit Lisinopril (Lisinopril 2.5 Mg Tablet) 2.5 mg PO DAILY [facility]; Protocol Last Admin: 07/25/22 08:11 Dose: 2.5 mg Metoprolol Tartrate (Metoprolol Tartrate 25 Mg Tablet) 25 mg PO BID [facility]; Protocol Last Admin: 07/25/22 08:11 Dose: 25 mg Ondansetron HCl (Ondansetron Hcl 4 Mg/2 Ml Vial) 4 mg IVPUSH Q8H PRN PRN Reason: Nausea and Vomiting Sodium Chloride (0.9 % Sodium Chloride Flush 3 Ml Syringe) [facility] Admin: 07/25/22 08:13 Dose: 3 ml Tiotropium George (Tiotropium George 18 Mcg Cap.W.Dev) 1 puff INHALE AILY [facility] Last Admin: 07/25/22 11:13 Dose: Not Given Home Medications Medication Instructions Recorded Confirmed Last Taken Type albuterol sulfate 90 mcg/actuation 2 puff inhalation Q4H PRN wheezing 01/18/21 07/22/22 Unknown History aerosol inhaler lisinopril 2.5 mg tablet 2.5 mg PO DAILY 01/18/21 07/22/22 07/22/22 History simvastatin 10 mg tablet 10 mg PO BEDTIME 01/18/21 07/22/22 07/21/22 History fluticasone fur. 100 mcg-umeclid 1 puff inhalation DAILY 07/22/22 07/22/22 07/22/22 History 62.5 mcg-vilant 25 mcg inhalat.powder (Trelegy Ellipta) insulin glargine 100 unit/mL (3 15 unit subcut BEDTIME 07/22/22 07/22/22 07/21/22 History mL) subcutaneous pen (Basaglar KwikPen U-100 Insulin) methocarbamol 750 mg tablet 1 tab PO DAILY PRN low back pain 07/22/22 07/22/22 Unknown History Exam Exam Date and Time: July 25, 2022 152 Height,Weight and Vital Signs: Height 5 ft 6 in Weight 114.2 kg Last Vital Signs Temp 98.1 F 07/25/22 14:20 Pulse 91 07/25/22 14:20 Resp 18 07/25/22 14:20 BP 141/72 H 07/25/22 14:20 Pulse Ox 97 07/25/22 14:20 O2 Del Method 07/25/22 14:20 Pertinent Lab Results Pertinent Lab Results: Laboratory Tests 07/22/22 07/22/22 07/22/22 09:04 09:04 09:04 WBC 9.9 RBC 4.46 L Hgb 13.6 L Hct 39.3 L MCV 88.1 MCH 30.5 MCHC 34.6 RDW 12.2 Plt Count 185 MPV 9.5 Immature Gran % (Auto) 0.5 H Neut % (Auto) 82.4 H Lymph % (Auto) 5.0 L [place] % (Auto) 10.2 Eos % (Auto) 1.7 Baso % (Auto) 0.2 Lymph # (Auto) 0.5 L [place] # (Auto) 1.0 Eos # (Auto) 0.2 Baso # (Auto) 0.0 Abs Immat Gran (auto) 0.05 H Absolute Neuts (auto) 8.2 Absolute Nucleated RBC 0.000 Nucleated RBC % (auto) 0.0 Sodium 133 L Potassium 4.0 Chloride 101 Carbon Dioxide 23 Anion Gap 13 BUN 17 H Creatinine 0.91 Estim Creat Clear Calc 80.9 Estimated GFR > 60 POC Glucose Random Glucose 191 H Lactic Acid Calcium 8.3 L D Magnesium Total Bilirubin 1.2 H Direct Bilirubin 0.5 AST 21 ALT 34 Alkaline Phosphatase 68 Troponin I High Sens 103.2 H* B-Natriuretic Peptide Total Protein 5.6 L Albumin 3.3 L Lipase 220 H Urine Color Urine Appearance Urine pH Ur Specific Ada Urine Protein Urine Glucose (UA) Urine Ketones Urine Blood Urine Nitrite Ur Leukocyte Esterase Urine RBC Urine WBC Ur Squamous Epith Cells Urine Bacteria Hyaline Casts Influenza Type A (PCR) Influenza Type B (PCR) RSV RNA Qual (PCR) SARS-CoV-2 RNA (RT-PCR) 07/22/22 07/22/22 07/22/22 09:04 09:04 09:04 WBC RBC Hgb Hct MCV MCH MCHC RDW Plt Count MPV Immature Gran % (Auto) Neut % (Auto) Lymph % (Auto) [place] % (Auto) Eos % (Auto) Baso % (Auto) Lymph # (Auto) [place] # (Auto) Eos # (Auto) Baso # (Auto) Abs Immat Gran (auto) Absolute Neuts (auto) Absolute Nucleated RBC Nucleated RBC % (auto) Sodium Potassium Chloride Carbon Dioxide Anion Gap BUN Creatinine Estim Creat Clear Calc Estimated GFR POC Glucose Random Glucose Lactic Acid 1.2 Calcium Magnesium Total Bilirubin Direct Bilirubin AST ALT Alkaline Phosphatase Troponin I High Sens B-Natriuretic Peptide 742 H Total Protein Albumin Lipase Urine Color Urine Appearance Urine pH Ur Specific Ada Urine Protein Urine Glucose (UA) Urine Ketones Urine Blood Urine Nitrite Ur Leukocyte Esterase Urine RBC Urine WBC Ur Squamous Epith Cells Urine Bacteria Hyaline Casts Influenza Type A (PCR) NEGATIVE Influenza Type B (PCR) NEGATIVE RSV RNA Qual (PCR) NEGATIVE SARS-CoV-2 RNA (RT-PCR) NEGATIVE 07/22/22 07/22/22 07/22/22 12:31 17:43 18:56 WBC RBC Hgb Hct MCV MCH MCHC RDW Plt Count MPV Immature Gran % (Auto) Neut % (Auto) Lymph % (Auto) [place] % (Auto) Eos % (Auto) Baso % (Auto) Lymph # (Auto) [place] # (Auto) Eos # (Auto) Baso # (Auto) Abs Immat Gran (auto) Absolute Neuts (auto) Absolute Nucleated RBC Nucleated RBC % (auto) Sodium Potassium Chloride Carbon Dioxide Anion Gap BUN Creatinine Estim Creat Clear Calc Estimated GFR POC Glucose 247 H Random Glucose Lactic Acid Calcium Magnesium Total Bilirubin Direct Bilirubin AST ALT Alkaline Phosphatase Troponin I High Sens 102.9 H* B-Natriuretic Peptide Total Protein Albumin Lipase Urine Color Dark Yellow Urine Appearance Clear Urine pH 6.0 Ur Specific Ada 1.025 Urine Protein 30 (1+) H Urine Glucose (UA) Negative Urine Ketones Trace Urine Blood Negative Urine Nitrite Negative Ur Leukocyte Esterase Small (1+) H Urine RBC 0-2 Urine WBC 0-5 Ur Squamous Epith Cells 3-5 Urine Bacteria None Seen Hyaline Casts 0-2 Influenza Type A (PCR) Influenza Type B (PCR) RSV RNA Qual (PCR) SARS-CoV-2 RNA (RT-PCR) 07/22/22 07/23/22 07/23/22 20:17 05:16 07:22 WBC RBC Hgb Hct MCV MCH MCHC RDW Plt Count MPV Immature Gran % (Auto) Neut % (Auto) Lymph % (Auto) [place] % (Auto) Eos % (Auto) Baso % (Auto) Lymph # (Auto) [place] # (Auto) Eos # (Auto) Baso # (Auto) Abs Immat Gran (auto) Absolute Neuts (auto) Absolute Nucleated RBC Nucleated RBC % (auto) Sodium 133 L Potassium 3.7 Chloride 99 Carbon Dioxide 21 L Anion Gap 17 BUN 18 H Creatinine 0.93 Estim Creat Clear Calc 79.2 Estimated GFR > 60 POC Glucose 182 H 166 H Random Glucose 186 H Lactic Acid Calcium 8.3 L Magnesium 1.6 Total Bilirubin Direct Bilirubin AST ALT Alkaline Phosphatase Troponin I High Sens B-Natriuretic Peptide Total Protein Albumin Lipase Urine Color Urine Appearance Urine pH Ur Specific Ada Urine Protein Urine Glucose (UA) Urine Ketones Urine Blood Urine Nitrite Ur Leukocyte Esterase Urine RBC Urine WBC Ur Squamous Epith Cells Urine Bacteria Hyaline Casts Influenza Type A (PCR) Influenza Type B (PCR) RSV RNA Qual (PCR) SARS-CoV-2 RNA (RT-PCR) 07/23/22 07/23/22 07/23/22 11:27 15:27 19:56 WBC RBC Hgb Hct MCV MCH MCHC RDW Plt Count MPV Immature Gran % (Auto) Neut % (Auto) Lymph % (Auto) [place] % (Auto) Eos % (Auto) Baso % (Auto) Lymph # (Auto) [place] # (Auto) Eos # (Auto) Baso # (Auto) Abs Immat Gran (auto) Absolute Neuts (auto) Absolute Nucleated RBC Nucleated RBC % (auto) Sodium Potassium Chloride Carbon Dioxide Anion Gap BUN Creatinine Estim Creat Clear Calc Estimated GFR POC Glucose 212 H 186 H 236 H Random Glucose Lactic Acid Calcium Magnesium Total Bilirubin Direct Bilirubin AST ALT Alkaline Phosphatase Troponin I High Sens B-Natriuretic Peptide Total Protein Albumin Lipase Urine Color Urine Appearance Urine pH Ur Specific Ada Urine Protein Urine Glucose (UA) Urine Ketones Urine Blood Urine Nitrite Ur Leukocyte Esterase Urine RBC Urine WBC Ur Squamous Epith Cells Urine Bacteria Hyaline Casts Influenza Type A (PCR) Influenza Type B (PCR) RSV RNA Qual (PCR) SARS-CoV-2 RNA (RT-PCR) 07/24/22 07/24/22 07/24/22 05:42 07:08 10:18 WBC RBC Hgb Hct MCV MCH MCHC RDW Plt Count MPV Immature Gran % (Auto) Neut % (Auto) Lymph % (Auto) [place] % (Auto) Eos % (Auto) Baso % (Auto) Lymph # (Auto) [place] # (Auto) Eos # (Auto) Baso # (Auto) Abs Immat Gran (auto) Absolute Neuts (auto) Absolute Nucleated RBC Nucleated RBC % (auto) Sodium 132 L Potassium 3.8 Chloride 94 L Carbon Dioxide 29 Anion Gap 13 BUN 17 H Creatinine 0.87 Estim Creat Clear Calc 84.4 Estimated GFR > 60 POC Glucose 182 H Random Glucose 184 H Lactic Acid Calcium 8.4 Magnesium Total Bilirubin Direct Bilirubin AST ALT Alkaline Phosphatase Troponin I High Sens B-Natriuretic Peptide Total Protein Albumin Lipase Urine Color Yellow Urine Appearance Clear Urine pH 6.0 Ur Specific Ada 1.010 Urine Protein Negative Urine Glucose (UA) Negative Urine Ketones Negative Urine Blood Negative Urine Nitrite Negative Ur Leukocyte Esterase Negative Urine RBC Urine WBC Ur Squamous Epith Cells Urine Bacteria Hyaline Casts Influenza Type A (PCR) Influenza Type B (PCR) RSV RNA Qual (PCR) SARS-CoV-2 RNA (RT-PCR) 07/24/22 07/24/22 07/24/22 11:04 15:34 19:34 WBC RBC Hgb Hct MCV MCH MCHC RDW Plt Count MPV Immature Gran % (Auto) Neut % (Auto) Lymph % (Auto) [place] % (Auto) Eos % (Auto) Baso % (Auto) Lymph # (Auto) [place] # (Auto) Eos # (Auto) Baso # (Auto) Abs Immat Gran (auto) Absolute Neuts (auto) Absolute Nucleated RBC Nucleated RBC % (auto) Sodium Potassium Chloride Carbon Dioxide Anion Gap BUN Creatinine Estim Creat Clear Calc Estimated GFR POC Glucose 205 H 191 H 247 H Random Glucose Lactic Acid Calcium Magnesium Total Bilirubin Direct Bilirubin AST ALT Alkaline Phosphatase Troponin I High Sens B-Natriuretic Peptide Total Protein Albumin Lipase Urine Color Urine Appearance Urine pH Ur Specific Ada Urine Protein Urine Glucose (UA) Urine Ketones Urine Blood Urine Nitrite Ur Leukocyte Esterase Urine RBC Urine WBC Ur Squamous Epith Cells Urine Bacteria Hyaline Casts Influenza Type A (PCR) Influenza Type B (PCR) RSV RNA Qual (PCR) SARS-CoV-2 RNA (RT-PCR) 07/25/22 07/25/22 07/25/22 07:01 07:09 11:06 WBC RBC Hgb Hct MCV MCH MCHC RDW Plt Count MPV Immature Gran % (Auto) Neut % (Auto) Lymph % (Auto) [place] % (Auto) Eos % (Auto) Baso % (Auto) Lymph # (Auto) [place] # (Auto) Eos # (Auto) Baso # (Auto) Abs Immat Gran (auto) Absolute Neuts (auto) Absolute Nucleated RBC Nucleated RBC % (auto) Sodium 131 L Potassium 3.6 Chloride 94 L Carbon Dioxide 25 Anion Gap 16 BUN 16 Creatinine 0.90 Estim Creat Clear Calc 81.6 Estimated GFR > 60 POC Glucose 239 H 170 H Random Glucose 227 H Lactic Acid Calcium 8.4 Magnesium Total Bilirubin Direct Bilirubin AST ALT Alkaline Phosphatase Troponin I High Sens B-Natriuretic Peptide Total Protein Albumin Lipase Urine Color Urine Appearance Urine pH Ur Specific [place] Urine Protein Urine Glucose (UA) Urine Ketones Urine Blood Urine Nitrite Ur Leukocyte Esterase Urine RBC Urine WBC Ur Squamous Epith Cells Urine Bacteria Hyaline Casts Influenza Type A (PCR) Influenza Type B (PCR) RSV RNA Qual (PCR) SARS-CoV-2 RNA (RT-PCR) 07/25/22 14:40 WBC RBC Hgb Hct MCV MCH MCHC RDW Plt Count MPV Immature Gran % (Auto) Neut % (Auto) Lymph % (Auto) [place] % (Auto) Eos % (Auto) Baso % (Auto) Lymph # (Auto) [place] # (Auto) Eos # (Auto) Baso # (Auto) Abs Immat Gran (auto) Absolute Neuts (auto) Absolute Nucleated RBC Nucleated RBC % (auto) Sodium Potassium Chloride Carbon Dioxide Anion Gap BUN Creatinine Estim Creat Clear Calc Estimated GFR POC Glucose 171 H Random Glucose Lactic Acid Calcium Magnesium Total Bilirubin Direct Bilirubin AST ALT Alkaline Phosphatase Troponin I High Sens B-Natriuretic Peptide Total Protein Albumin Lipase Urine Color Urine Appearance Urine pH Ur Specific [place] Urine Protein Urine Glucose (UA) Urine Ketones Urine Blood Urine Nitrite Ur Leukocyte Esterase Urine RBC Urine WBC Ur Squamous Epith Cells Urine Bacteria Hyaline Casts Influenza Type A (PCR) Influenza Type B (PCR) RSV RNA Qual (PCR) SARS-CoV-2 RNA (RT-PCR) Airway Mallampati Class: III TM Dist: <=3cm Denture: Upper and Lower Heart: afib Lungs: ok Assessment and Plan Assessment Anesthesia Assessment: Anesthesia Plan Discussed and Chart Reviewed Final Anesthetic Review Family History of Problems with Anesthesia: No History of Problems with Anesthesia: No NPO: Yes ASA Class: III Final Preanesthetic Review: No Changes in Pt Med Stat, Consent Obtained/Reviewed, Anes Risks/Benef Reviewed and DNR Form (If Appl.) Patient Risk: High Procedure Risk: Intermediate Anesthetic Plan Anesthetic Plan: MAC: and Agree w/ Assess. and Plan Disposition: Standard PACU
--- NOTE | 2022-07-25 15:46 | HO.CARDIVERS ---
Cardioversion Procedure Note Cardioversion Date of Procedure: Today Ordering Provider: Myself Performing Provider: Myself Indication for Procedure: Persistent atrial fibrillation with heart failure Pre-Op Diagnosis: Same Post-Op Diagnosis: Same Performed with Transesophageal Echo: No History: See the consult note Consent: Verbal and Written consent was obtained from the patient before starting the procedure and confirming oral anticoagulation use. The patient was made aware of the risk of synchronized cardioversion including benefits and alternatives Procedure: After consent obtained, cardioversion pads were attached in anteroposterior configuration and the patient was sedated by the anesthesia team. Once adequate sedation achieved, 200 joules of biphasic synchronized energy in anteroposterior configuration x2. Patient failed to convert after 1st and was given 2nd shock Complications: None Impression: Brief conversion to sinus rhythm after the 2nd shock but converted back to atrial fibrillation Recommendations: 1. Amiodarone loading with 400 mg b.i.d. for 2 weeks followed by 200 mg daily 2. Repeat cardioversion 2 weeks after amiodarone loading 3. Continue full oral anticoagulation, uninterrupted
[2022-07-25 15:52] VITALS: BP 122/65; PULSE 91; RESP 14; TEMP 37; O2SAT 91
--- NOTE | 2022-07-25 15:52 | PM.DS ---
DS: Providers Provider Date of Service: 07/25/22 Date of admission: 07/22/22 15:31 Primary care physician: Jocelin Ocasio MD Consults: 07/22/22 14:47 Consult to Cardiology Stat Consulting Provider: Yemi Wing Reason for consultation: cp and sob/ chf Has provider been notified: Yes Attending physician on discharge: Eliecer Gil Discharging clinician: Sera Pozo DS: Diagnosis Discharge Diagnosis (1) Congestive heart failure: Status: Acute (2) Paroxysmal atrial flutter: Status: Acute DS: Summary Hospital Course Hospital Course: HP as per admitting provider Pt is a 77-year-old male with a PMH significant for?atrial flutter with successful cardioversion 3 years ago on Eliquis and diltiazem followed by Dr. Arnett, COPD, HTN, HLD, insulin-dependent DM 2, and CARLOS on CPAP who presents to the ED for?chest pressure and worsening SOB and cough for a little over a week.? SOB is primarily exertional, but can also occur at rest.? Cough has been productive, sometimes brown, black, or flecked with red.? Chest pressure centered in the mid chest and does not radiate, lasts a few minutes at a time, mostly associated with coughing but can also occur at rest or with exertion.? Patient endorses anorexia over the past week, says he has lost over 10 lb due to not eating.? He has also been lightheaded and dizzy if he gets up quickly.? Patient states that he has chronic lower leg swelling and has not noticed any increase to his edema.? Today patient states he took off his CPAP machine and it took him 2 hours to catch his breath.? He presents today primarily after noticing that his heart rate climbed to 110s and 120s and he could feel palpitations.? Of note patient is a former smoker who quit over 40 years ago. In the ED labs were significant for no leukocytosis, troponin of 103.2 with repeat flat at 102.9, elevated lipase of 220 1, elevated BNP of 742, lactic acid WNL. CXR showed coarsely calcified pleural plaques bilaterally with mild interval increase in calcification since 2019, but no definitive acute abnormality.? EKG showed AFib/atrail flutter with inverted T-waves in anterior leads and right bundle-branch block, repeat showed sinus rhythm with 1st degree AV block with nonspecific T-wave inversions.? In the ED patient was treated with metoprolol, nitroglycerin, aspirin.? Cardiology consulted and feels his presentation is more consistent with heart failure rather than stable or unstable angina.? Patient will be admitted to telemetry for treatment and evaluation of CHF with IV Lasix . Acute HFpEF echo with LVEF 55-60% secondary to atrial flutter po lasix 40 bid, restart tomorrow Cardiology following Hyponatremia secondary to diuresis May resume Lasix tomorrow Check BMP in 2 days Paroxysmal Atrial flutter HR controlled Continue Eliquis started on lopressor this admission status post unsuccessful cardioversion Start amiodarone 400 mg twice daily for 2 weeks then 200 mg daily Follow-up with Cardiology in 2 weeks for repeat cardioversion Chest pain/tightness atypical. Troponins flat, EKGs with no evidence of acute ischemic changes likely r/t demand from CHF Insulin-dependent DM2 SSI, POCs resume on insulin if pocs elevated Morbid obesity BMI 40.6 likely contributing to sob CARLOS CPAP at night HLD Continue statin HTN Continue lisinopril, metoprolol Time Spent with Patient Time attestation: Total time managing care of this patient today ____ minutes. Discharge coordination time: Greater than 30 minutes Quality: Safe Use of Opioids Does Pt have an Active Cancer Diagnosis on the Problem List?: No Quality: Stroke Does the patient have a stroke diagnosis?: No Physical Exam Vital Signs: Vital Signs: Last Vital Signs Temp 98.1 F 07/25/22 14:20 Pulse 91 07/25/22 14:20 Resp 18 07/25/22 14:20 BP 141/72 H 07/25/22 14:20 Pulse Ox 97 07/25/22 14:20 O2 Del Method 07/25/22 14:20 BMI result Body Mass Index 40.6 Appearing in no acute distress head is normocephalic atraumatic eyes pupils are PERRLA sclera is anicteric mouth throat mucous membranes are intact and moist neck is supple no lymphadenopathy, no JVD noted lung sounds are clear to auscultation heart regular rate rhythm, clear S1, S2 positive bowel sounds, abdomen is soft, nontender neuro patient is alert x3, no focal deficits DS: Data Data Completed and Pending Labs on day of discharge: Laboratory Results - last 24 hr 01/07/24/22 07/25/22 15:34 19:34 07:01 Sodium 131 L Potassium 3.6 Chloride 94 L Carbon Dioxide 25 Anion Gap 16 BUN 16 Creatinine 0.90 Estim Creat Clear Calc 81.6 Estimated GFR > 60 POC Glucose 191 H 247 H Random Glucose 227 H Calcium 8.4 07/25/22 07/25/22 07/25/22 07:09 11:06 14:40 Sodium Potassium Chloride Carbon Dioxide Anion Gap BUN Creatinine Estim Creat Clear Calc Estimated GFR POC Glucose 239 H 170 H 171 H Random Glucose Calcium Preliminary micro results at discharge 07/22/22 09:05 Blood Culture - Preliminary Blood - Venous No growth after 48 hours. 07/22/22 09:04 Blood Culture - Preliminary Blood - Venous No growth after 48 hours. Discharge Plan Discharge Anticipated Discharge Date/Time: 07/25/22 15:46 Patient Disposition: Home, Self-Care Discharge Diagnosis: Afib RVR, unsuccessful cardioversion Referrals: Jocelin Ocasio MD [Primary Care Provider] - 1 Week Reyes Arnett MD [Physician] - 1 Week Discharge Medications: New amiodarone 200 mg Tablet 400 mg PO BID Qty: 42 0RF Rx Instructions: take 400mg twice daily for 14 days, then 200mg daily Continued diltiazem HCl 120 mg capsule,extended release 24 hr 120 mg PO DAILY 90 Days Qty: 90 3RF Eliquis 5 mg tablet 5 mg PO BID Qty: 180 2RF methocarbamol 750 mg tablet 1 tab PO DAILY PRN (Reason: low back pain) insulin glargine [Basaglar KwikPen U-100 Insulin] 100 unit/mL (3 mL) insulin pen 15 unit subcut BEDTIME Trelegy Ellipta 100-62.5-25 mcg blister with device 1 puff inhalation DAILY albuterol sulfate 90 mcg/actuation HFA aerosol inhaler 2 puff inhalation Q4H PRN (Reason: wheezing) lisinopril 2.5 mg tablet 2.5 mg PO DAILY simvastatin 10 mg tablet 10 mg PO BEDTIME Discharge Orders: Discharge Order (Routine); Ordered 07/25/22 Ordered By: Sera Pozo Diet: Advance to usual diet Activity on Discharge: As tolerated Stand Alone Forms: Patient Portal Discharge page Other Ambulatory Orders: Basic Metabolic Panel (Routine) Timeframe: [id number] Facility: [facility] - Location: Laboratory Ordered By: Sera Pozo Care Plan Goals: complete resolution of symptoms Health Concerns: Atrial fibrillation with rapid ventricular response, unsuccessful cardioversion Plan of Treatment: Follow-up with cardiology for cardioversion in 2 weeks Start amiodarone 400 mg twice daily for 14 days then 200 mg daily Assessment: see discharge summary
[2022-07-25 16:07] VITALS: BP 115/68; PULSE 88; RESP 14; TEMP 36.6; O2SAT 92
--- NOTE | 2022-07-25 16:31 | MHC.CM.PN ---
PT WILL DC HOME TODAY WITH NO SERVICES FAMILY TO TRANSPORT
== END 2022-07-25 18:30 | disposition home or self-care (01) | DRG 291 ==
LOC: HO.ED 14:57 → HO.EDOVER 15:42 → HO.S3 18:43
PROVIDERS: Internal Medicine Cardiovascular Disease; Physician Assistant Medical; Admitting Provider Student in an Organized Health Care Education/Training Program; Emergency Provider Emergency Medicine; PCP Internal Medicine; Visit Provider Nurse Practitioner Acute Care
PROC: 5A2204Z Restoration of Cardiac Rhythm, Single (ICD-10-PCS; principal; 2022-07-25 15:30)
DX: I11.0 Hypertensive heart disease with heart failure (principal); I50.31 Acute diastolic (congestive) heart failure; I48.19 Other persistent atrial fibrillation; Z68.41 Body mass index [BMI] 40.0-44.9, adult; I48.92 Unspecified atrial flutter; J44.9 Chronic obstructive pulmonary disease, unspecified; E78.5 Hyperlipidemia, unspecified; E66.01 Morbid (severe) obesity due to excess calories; G47.33 Obstructive sleep apnea (adult) (pediatric); Z20.822 Contact with and (suspected) exposure to COVID-19; Z98.84 Bariatric surgery status; Z87.891 Personal history of nicotine dependence; Z79.4 Long term (current) use of insulin; Z79.01 Long term (current) use of anticoagulants; Z79.899 Other long term (current) drug therapy
CPT/HCPCS: 0241U; 36415; 71045; 80048; 80076; 81001; 81003; 82947; 83605; 83690; 83735; 83880; 84484; 85025; 87040; 87086; 92960; 93005; 93306; 93308; 94660; 99285; J1940; Q9957

== ENCOUNTER 2022-08-10 15:06 | Inpatient (IN) | payer MEDICARE, BC, SELFPAY ==
[2022-08-10] VITALS (16 sets, daily range): BP systolic 99–137; BP diastolic 38–57; PULSE 39–61; RESP 13–20; TEMP 36.2–36.4; O2SAT 94–100; BMI 38.7
--- NOTE | ~2022-08-10 | XR_ITS ---
EXAMINATION: XR CHEST CLINICAL INFORMATION: Pacer. COMPARISON: Chest radiograph 07/22/2022 and 06/08/2019. TECHNIQUE: Frontal view of the chest was obtained. FINDINGS: Left-sided pacer with leads projecting over the right atrium and right ventricle. No pneumothorax. Stable prominence of the cardiomediastinal silhouette. Bilateral calcified pleural plaques. Increased irregular opacities in the right upper lobe and lateral left upper lobe compared to a radiograph from 2019, but not significantly changed compared to 07/22/2022. Suspect trace amount of left-sided pleural fluid. No acute osseous abnormalities. XR/XR chest 1V IMPRESSION: 1. Left-sided pacer with leads projecting over the right atrium and right ventricle. No pneumothorax. 2. Increased irregular opacities in the right upper lobe and lateral left upper lobe compared to a radiograph from 2019. These are nonspecific and could be associated with underlying asbestos-related lung disease, however an infectious/inflammatory process or malignancy cannot be excluded. Recommend correlation with an elective chest CT.
--- NOTE | ~2022-08-10 | FL_ITS ---
EXAMINATION: XR FLUOROSCOPY WITH IMAGES CLINICAL INFORMATION: Pacemaker placement COMPARISON: Chest radiographs 08/10/2022, 07/22/2022 TECHNIQUE: Fluoroscopy Supervised By: Dr. Cash Connor. Fluoroscopy Time: 20 minutes. Cumulative Dose: 458.2 mGy. Images: 2. FINDINGS: There are bipolar pacer leads overlying region of right atrium and right ventricle. FL/FL guidance in OR IMPRESSION: Fluoroscopy for pacer placement.
[2022-08-10] MEDS: Lactated Ringers 1,000 ML 50 ML IVCONT (11:39)
[2022-08-10 11:41] LABS: Glucose, Whole Blood 142 mg/dL (60-115)
--- NOTE | 2022-08-10 11:53 | MHC.SHP ---
Pre-Procedural Eval Section A Date of Service: 08/10/22 The patient is an INPATIENT: No Changes since office visit: Yes Changes in Medication and Yes Patient answered all questions; No Cold of Flu in the past 2 weeks and No New Medical Problems The History & Physical has been completed within 30 days and I have reviewed it.: Yes Section B Chief Complaint: afib Allergies: Allergies Allergy/AdvReac Type Severity Reaction Status Date / Time No Known Allergies Allergy Verified 08/10/22 11:17 Plan I have reviewed the history and physical and performed a pertinent physical examination on my patient. No changes have occurred unless specified. Time Spent With Patient Time: Total time managing care of this patient today ____ minutes.
--- NOTE | 2022-08-10 12:25 | HO.ANESPROP2 ---
HPI - Anesthesia Eval Consult details Narrative: chr afib cardioversion PMFSH Active Problems Active Problems: All Active Problems (Updated 08/10/22 @ 11:16 by Radha Stiles RN) Persistent atrial fibrillation (Acute) Hyponatremia (Acute) PVCs (premature ventricular contractions) (Acute) Past Medical History Medical History (Updated 08/10/22 @ 11:16 by Radha Stiles RN) COPD (chronic obstructive pulmonary disease) Diabetes History of cardioversion HTN (hypertension) Non-ST elevation [place] (NSTEMI) Obesity CARLOS on CPAP Paroxysmal atrial flutter PVCs (premature ventricular contractions) Family History Family History Father No problems noted. Mother No problems noted. Family history of problems with anesthesia: No Surgical History Surgical History (Updated 08/10/22 @ 11:17 by Radha Stiles RN) History of arthroscopy of left knee Hx of hernia repair Hx of knee surgery Hx of laparoscopic gastric banding Hx of total knee arthroplasty History of Problems with Anesthesia: No Social History Social History Household Members: Spouse Household Members Other:: 1 Housing: House Do you presently have visiting nurse or other home services: No Alcohol intake: never Patient Tobacco Use Status: Former Tobacco user Quit Date: >40 yrs ago Tobacco use type: Cigarette e-Cigarette/Vaping Use: Never Used Second Hand Smoke Exposure: No Use of substances other than those prescribed or required for medical reasons: No Are you DNR?: Yes Advance Directives: No Advance Directives Information Provided: Yes service: No Current occupational status: retired Meds Allergies Allergy/AdvReac Type Severity Reaction Status Date / Time No Known Allergies Allergy Verified 08/10/22 11:17 Active Medications: Current Medications Lactated Ringer's (Lr) 1,000 mls @ 50 mls/hr IVCONT .Q20H JOHN Last Admin: 08/10/22 11:39 Dose: 50 mls/hr Home Medications Medication Instructions Recorded Confirmed Last Taken Type albuterol sulfate 90 mcg/actuation 2 puff inhalation Q4H PRN wheezing 01/18/21 08/10/22 Unknown History aerosol inhaler lisinopril 2.5 mg tablet 2.5 mg PO DAILY 01/18/21 08/10/22 07/22/22 History simvastatin 10 mg tablet 10 mg PO BEDTIME 01/18/21 08/10/22 07/21/22 History fluticasone fur. 100 mcg-umeclid 1 puff inhalation DAILY 07/22/22 08/10/22 07/22/22 History 62.5 mcg-vilant 25 mcg inhalat.powder (Trelegy Ellipta) insulin glargine 100 unit/mL (3 17 unit subcut BEDTIME 07/22/22 08/10/22 07/21/22 History mL) subcutaneous pen (Basaglar KwikPen U-100 Insulin) methocarbamol 750 mg tablet 1 tab PO DAILY PRN low back pain 07/22/22 08/10/22 Unknown History Exam Exam Date and Time: August 10, 2022 1225 Height,Weight and Vital Signs: Height 5 ft 6 in Weight 108.862 kg Last Vital Signs Temp 97.3 F 08/10/22 11:32 Pulse 50 08/10/22 11:32 Resp 18 08/10/22 11:32 BP 136/54 L 08/10/22 11:32 Pulse Ox 96 08/10/22 11:32 O2 Del Method 08/10/22 11:32 Pertinent Lab Results Pertinent Lab Results: Laboratory Tests 08/10/22 11:31 POC Glucose 142 H Airway Mallampati Class: III TM Dist: >3cm Neck ROM: Limited Heart: irreg Lungs: cta Assessment and Plan Final Anesthetic Review Family History of Problems with Anesthesia: No History of Problems with Anesthesia: No ASA Class: IV Final Preanesthetic Review: No Changes in Pt Med Stat, Meds/Allgs Chart Reviewed, Consent Obtained/Reviewed and Anes Risks/Benef Reviewed Patient Risk: High Procedure Risk: Low Anesthetic Plan Anesthetic Plan: MAC: and Agree w/ Assess. and Plan Disposition: Standard PACU
--- NOTE | 2022-08-10 12:57 | HO.CARDIVERS ---
Cardioversion Procedure Note Cardioversion Date of Procedure: Today Ordering Provider: Myself Performing Provider: Myself Indication for Procedure: Persistent atrial fibrillation with CHF Pre-Op Diagnosis: Same Post-Op Diagnosis: NSR Performed with Transesophageal Echo: No History: See prior hospital noted Consent: Verbal and Written consent was obtained from the patient before starting and confirming OAC use. The patient was made aware of the risk of synchonized cardioversion including benefits and risk Procedure: After consent obtained, cardioverson pads were attached in AP configuration and the patient was sedated by the anesthesia team. Once adequate sedation achieved, patient was delivered 200 J of biphasic synchonized energy in AP configuration Complications: Significant pause and AV Wenkebach post cardioversion, requiring 05 mg of atropine and 0.1 mg of epinephrine Impression: Successful conversion to NSR with SSS Recommendations: 1. Admit to inpatient for observation and pacemaker placement 2. 12 lead EKG 3. Continue full OAC
--- NOTE | 2022-08-10 13:04 | ECG_ITS ---
Test Reason : postop Blood Pressure : / mmHG Vent. Rate : 058 BPM Atrial Rate : 000 BPM P-R Int : 000 ms QRS Dur : 084 ms QT Int : 540 ms P-R-T Axes : 000 014 -06 degrees QTc Int : 530 ms Junctional rhythm Possible Inferior infarct (cited on or before 22-JUL-2022) ST & T wave abnormality, consider anterior ischemia Prolonged QT Abnormal ECG When compared with ECG of 25-JUL-2022 08:53, Junctional rhythm has replaced Atrial fibrillation Vent. rate has decreased BY 28 BPM Right bundle branch block is no longer Present Referred By: Reyes Arnett Electronically Signed By:Yemi Wing
--- NOTE | 2022-08-10 13:25 | P.HPHOSP_ITS ---
History of Present Illness Date of Service: 08/10/22 Chief Complaint: Junctional bradycardia 77 year old man s/p cardioversion today for persistent atrial fibrillation with congestive heart failure. Patient converted to sinus rhythm however developed significant pause and AV Wenckebach post cardioversion. He had atropine 0.5 mg and epinephrine 0.1 mg administered successful cardioversion to normal sinus rhythm with sick sinus syndrome. At this time the patient is requiring a pacemaker placement which will take place this evening. Patient denies chest pain, shortness breath, nausea, vomiting, diarrhea. His vital signs are stable with pulse in the 30s to 40s has been on full anticoagulation. Review of Systems Review of Systems: Denies any recent fever chills or decrease in appetite respiratory denies any shortness of breath coverage production cardiovascular Denied chest pain gastrointestinal denies any dysphagia abdominal pain nausea vomiting or diarrhea genitourinary denies any dysuria frequency or hematuria musculoskeletal denies any joint pain or swelling neuropsych denies any weakness or seizures all other systems reviewed are negative [facility] Medical History (Updated 08/10/22 @ 11:16 by Radha Stiles RN) COPD (chronic obstructive pulmonary disease) Diabetes History of cardioversion HTN (hypertension) Non-ST elevation [place] (NSTEMI) Obesity CARLOS on CPAP Paroxysmal atrial flutter PVCs (premature ventricular contractions) Family History Father No problems noted. Mother No problems noted. Surgical History (Updated 08/10/22 @ 11:17 by Radha Stiles RN) History of arthroscopy of left knee Hx of hernia repair Hx of knee surgery Hx of laparoscopic gastric banding Hx of total knee arthroplasty Social History Household Members: Spouse Household Members Other:: 1 Housing: House Do you presently have visiting nurse or other home services: No Alcohol intake: never Patient Tobacco Use Status: Former Tobacco user Quit Date: >40 yrs ago Tobacco use type: Cigarette e-Cigarette/Vaping Use: Never Used Second Hand Smoke Exposure: No Use of substances other than those prescribed or required for medical reasons: No Are you DNR?: Yes Advance Directives: No Advance Directives Information Provided: Yes service: No Current occupational status: retired Meds Allergies Allergy/AdvReac Type Severity Reaction Status Date / Time No Known Allergies Allergy Verified 08/10/22 11:17 Active Medications: Current Medications Lactated Ringer's (Lr) 1,000 mls @ 50 mls/hr IVCONT .Q20H JOHN Last Admin: 08/10/22 11:39 Dose: 50 mls/hr Home Medications Medication Instructions Recorded Confirmed Last Taken Type albuterol sulfate 90 mcg/actuation 2 puff inhalation Q4H PRN wheezing 01/18/21 08/10/22 Unknown History aerosol inhaler lisinopril 2.5 mg tablet 2.5 mg PO DAILY 01/18/21 08/10/22 07/22/22 History simvastatin 10 mg tablet 10 mg PO BEDTIME 01/18/21 08/10/22 07/21/22 History fluticasone fur. 100 mcg-umeclid 1 puff inhalation DAILY 07/22/22 08/10/22 07/22/22 History 62.5 mcg-vilant 25 mcg inhalat.powder (Trelegy Ellipta) insulin glargine 100 unit/mL (3 17 unit subcut BEDTIME 07/22/22 08/10/22 07/21/22 History mL) subcutaneous pen (Basaglar KwikPen U-100 Insulin) methocarbamol 750 mg tablet 1 tab PO DAILY PRN low back pain 07/22/22 08/10/22 U nknown History Physical Exam Vital Signs and Narrative: Vital Signs: Last Vital Signs Temp 97.4 F 08/10/22 13:05 Pulse 57 08/10/22 13:05 Resp 16 08/10/22 13:05 BP 104/46 L 08/10/22 13:05 Pulse Ox 97 08/10/22 13:05 O2 Del Method 08/10/22 13:05 O2 Flow Rate 2 08/10/22 13:05 BMI result Body Mass Index 38.7 Appearing in no acute distress head is normocephalic atraumatic eyes pupils are PERRLA sclera is anicteric mouth throat mucous membranes are intact and moist neck is supple no lymphadenopathy, no JVD noted lung sounds are clear to auscultation heart regular rate rhythm, clear S1, S2 positive bowel sounds, abdomen is soft, nontender neuro patient is alert x3, no focal deficits Results Labs Labs: Laboratory Results - last 24 hr 08/10/22 11:31 POC Glucose 142 H Assessment and Plan (1) Persistent atrial fibrillation: Status: Acute Plan 77 year old man s/p cardioversion with complications of SSS. placement of pacemaker this evening SSS s/p cardioversion pacemaker placement this evening monitor on tele overnight discuss with cardiology re dc Hyponatremia mild monitor DM2 ss, ada diet Afib continue apixaban hold all rate lowering medication tonight HTN contine home medications tomorrow after pacer placement BP stable at this time DVT prophylaxis with Apixaban Attending Dr. Beavers Full code Time Spent With Patient Time: Total time managing care of this patient today ____ minutes. Quality Stroke Does the patient have a stroke diagnosis?: No VTE Prior VTE?: No VTE Risk Level:: Medical - moderate - high VTE Device Contraindication: Treatment Not Indicated VTE Drug Contraindication: N/A - Med Ordered
--- NOTE | 2022-08-10 13:26 | PM.EVENT ---
Event Note Date of Service: 08/10/22 Event Note: THORACIC SURGERY Patient scheduled for pacemaker insertion nikolai, around 5:00pm. Keep NPO Time Spent With Patient Time: Total time managing care of this patient today ____ minutes.
[2022-08-10 16:35] LABS: Glucose, Whole Blood 98 mg/dL (60-115)
--- NOTE | 2022-08-10 18:15 | PC.NURSE ---
dr. arthur at bedside for evaluation and to review procedure and plan regarding surgical procedure with patient
--- NOTE | 2022-08-10 18:24 | MHC.SHP ---
Pre-Procedural Eval Section A Date of Service: 08/10/22 The patient is an INPATIENT: Yes The History & Physical has been completed within 30 days and I have reviewed it.: Yes Section B Chief Complaint: afib Allergies: Allergies Allergy/AdvReac Type Severity Reaction Status Date / Time No Known Allergies Allergy Verified 08/10/22 11:17 Plan I have reviewed the history and physical and performed a pertinent physical examination on my patient. No changes have occurred unless specified. plan is for dual-chamber permanent pacemaker to be placed today. Patient is NPO and I discussed the risks, benefits, and alternatives the patient in detail which he understood and agreed to proceed. Time Spent With Patient Time: Total time managing care of this patient today ____ minutes.
--- NOTE | 2022-08-10 18:25 | PM.CNGS ---
History of Present Illness Consult details Consult date: 08/10/22 Requesting physician: Reyes Arnett Narrative: 77-year-old male who had cardioversion today that was successful however after cardioversion he was became bradycardic into the 40s. With this and intermittent tachycardia, he now carries the diagnosis of sick sinus syndrome. He denies chest pain, shortness of breath, syncope, or presyncopal symptoms. Other than above, 12 point review of systems was done and Negative PMFSH Past Medical History Medical History COPD (chronic obstructive pulmonary disease) Diabetes History of cardioversion HTN (hypertension) Non-ST elevation [place] (NSTEMI) Obesity CARLOS on CPAP Paroxysmal atrial flutter PVCs (premature ventricular contractions) Family History Family History Father No problems noted. Mother No problems noted. Surgical History Surgical History History of arthroscopy of left knee Hx of hernia repair Hx of knee surgery Hx of laparoscopic gastric banding Hx of total knee arthroplasty Social History Social History Household Members: Spouse Household Members Other:: 1 Housing: House Do you presently have visiting nurse or other home services: No Alcohol intake: never Patient Tobacco Use Status: Former Tobacco user Quit Date: >40 yrs ago Tobacco use type: Cigarette e-Cigarette/Vaping Use: Never Used Second Hand Smoke Exposure: No Use of substances other than those prescribed or required for medical reasons: No Are you DNR?: Yes Advance Directives: No Advance Directives Information Provided: Yes service: No Current occupational status: retired Meds Allergies Allergy/AdvReac Type Severity Reaction Status Date / Time No Known Allergies Allergy Verified 08/10/22 11:17 Active Medications: Current Medications Acetaminophen (Acetaminophen 325 Mg Tablet) 650 mg PO Q6H PRN PRN Reason: Pain, Mild (Pain Scale 1-3) Albuterol Sulfate (Albuterol Sulfate 90 Mcg 8 Gm Inhaler) 2 puff INHALE Q4H PRN PRN Reason: wheezing Apixaban (Apixaban 5 Mg Tablet) 5 mg PO BID JOHN Atorvastatin Calcium (Atorvastatin Calcium 10 Mg Tablet) 10 mg PO BEDTIME [facility] Lactated Ringer's (Lr) 1,000 mls @ 50 mls/hr IVCONT .Q20H JOHN Last Admin: 08/10/22 11:39 Dose: 50 mls/hr Insulin Glargine (Insulin Glargine,Hum.Rec.Anlog 100 Unit/Ml 10 Ml Vial) 17 unit SUBCUT BEDTIME [facility] Non-Formulary Medication (Whhmimfgtxg-Goqstwvvn-Zmvxlxeo [Trelegy Ellipta]) 1 puff INHALE DAILY [facility] Sodium Chloride (0.9 % Sodium Chloride Flush 3 Ml Syringe) 3 ml IVFLUSH QSHIFT [facility] Home Medications Medication Instructions Recorded Confirmed Last Taken Type albuterol sulfate 90 mcg/actuation 2 puff inhalation Q4H PRN wheezing 01/18/21 08/10/22 Unknown History aerosol inhaler lisinopril 2.5 mg tablet 2.5 mg PO DAILY 01/18/21 08/10/22 07/22/22 History simvastatin 10 mg tablet 10 mg PO BEDTIME 01/18/21 08/10/22 07/21/22 History fluticasone fur. 100 mcg-umeclid 1 puff inhalation DAILY 07/22/22 08/10/22 07/22/22 History 62.5 mcg-vilant 25 mcg inhalat.powder (Trelegy Ellipta) insulin glargine 100 unit/mL (3 17 unit subcut BEDTIME 07/22/22 08/10/22 07/21/22 History mL) subcutaneous pen (Basaglar KwikPen U-100 Insulin) methocarbamol 750 mg tablet 1 tab PO DAILY PRN low back pain 07/22/22 08/10/22 Unknown History Physical Exam Vital Signs: Vital Signs: Last Vital Signs Temp 97.2 F 08/10/22 17:03 Pulse 45 L 08/10/22 17:57 Resp 18 08/10/22 17:57 BP 124/51 L 08/10/22 17:57 Pulse Ox 100 08/10/22 17:57 O2 Del Method 08/10/22 17:57 O2 Flow Rate 2 08/10/22 17:57 BMI result Body Mass Index 38.7 General: No acute distress HEENT: Moist mucous membranes, normocephalic, pupils equal round and reactive to light. Neck: No thyromegaly, supple, no JVD Lymph: No cervical, supraclavicular, or other lymphadenopathy Chest: No chest wall abnormalities or deformities Heart: Regular rate and rhythm Lungs: Clear to auscultation bilaterally Abdomen: Soft, nontender, normal bowel sounds Extremities: No edema, cyanosis, or clubbing. Full range of motion Neuro: Grossly intact, alert and oriented x3, and nonfocal Skin: Warm and dry no rashes Affect: Normal Results Labs Labs: Abnormal lab results 08/10/22 Range/Units 11:31 POC Glucose 142 H (60-115) mg/dL All other labs normal. Imaging Chest x-ray: image reviewed EKG: report reviewed and image reviewed Assessment and Plan (1) Sick sinus syndrome: Status: Acute Plan 77-year-old man with sick sinus syndrome status post successful cardioversion. Currently his heart rate is in the low 40s. I agree with the indication for dual-chamber permanent pacemaker and discussed the risks, benefits, and alternatives with the patient in detail which he understood and agreed to proceed. The patient is NPO already and we will plan to go to the operating room today. Since he was just cardioverted we cannot stop his blood thinners and I did discuss this with him as part of his risk profile. After the procedure , he will be in a sling for 2 days with sore stricture in stop of right arm movement as he is a left the for 6-8 weeks. The leads will be tested again in the morning. Time Spent With Patient Time: Total time managing care of this patient today ____ minutes. Procedures Date of Service Date of Service: 08/10/22
--- NOTE | 2022-08-10 18:43 | HO.ANESPROP2 ---
[facility] Active Problems Active Problems: All Active Problems (Updated 08/10/22 @ 18:28 by Cash Connor MD) Sick sinus syndrome (Acute) Persistent atrial fibrillation (Acute) Hyponatremia (Acute) PVCs (premature ventricular contractions) (Acute) Past Medical History Medical History COPD (chronic obstructive pulmonary disease) Diabetes History of cardioversion HTN (hypertension) Non-ST elevation [place] (NSTEMI) Obesity CARLOS on CPAP Paroxysmal atrial flutter PVCs (premature ventricular contractions) Family History Family History Father No problems noted. Mother No problems noted. Family history of problems with anesthesia: No Surgical History Surgical History History of arthroscopy of left knee Hx of hernia repair Hx of knee surgery Hx of laparoscopic gastric banding Hx of total knee arthroplasty History of Problems with Anesthesia: No Social History Social History Household Members: Spouse Household Members Other:: 1 Housing: House Do you presently have visiting nurse or other home services: No Alcohol intake: never Patient Tobacco Use Status: Former Tobacco user Quit Date: >40 yrs ago Tobacco use type: Cigarette e-Cigarette/Vaping Use: Never Used Second Hand Smoke Exposure: No Use of substances other than those prescribed or required for medical reasons: No Are you DNR?: Yes Advance Directives: No Advance Directives Information Provided: Yes service: No Current occupational status: retired Meds Allergies Allergy/AdvReac Type Severity Reaction Status Date / Time No Known Allergies Allergy Verified 08/10/22 11:17 Active Medications: Current Medications Acetaminophen (Acetaminophen 325 Mg Tablet) 650 mg PO Q6H PRN PRN Reason: Pain, Mild (Pain Scale 1-3) Albuterol Sulfate (Albuterol Sulfate 90 Mcg 8 Gm Inhaler) 2 puff INHALE Q4H PRN PRN Reason: wheezing Apixaban (Apixaban 5 Mg Tablet) 5 mg PO BID JOHN Atorvastatin Calcium (Atorvastatin Calcium 10 Mg Tablet) 10 mg PO BEDTIME JOHN Lactated Ringer's (Lr) 1,000 mls @ 50 mls/hr IVCONT .Q20H [facility] Last Admin: 08/10/22 11:39 Dose: 50 mls/hr Insulin Glargine (Insulin Glargine,Hum.Rec.Anlog 100 Unit/Ml 10 Ml Vial) 17 unit SUBCUT BEDTIME [facility] Non-Formulary Medication (Fycceboibix-Ccfdssjux-Sarosbxp [Trelegy Ellipta]) 1 puff INHALE DAILY [facility] Sodium Chloride (0.9 % Sodium Chloride Flush 3 Ml Syringe) 3 ml IVFLUSH QSHIFT [facility] Home Medications Medication Instructions Recorded Confirmed Last Taken Type albuterol sulfate 90 mcg/actuation 2 puff inhalation Q4H PRN wheezing 01/18/21 08/10/22 Unknown History aerosol inhaler lisinopril 2.5 mg tablet 2.5 mg PO DAILY 01/18/21 08/10/22 07/22/22 History simvastatin 10 mg tablet 10 mg PO BEDTIME 01/18/21 08/10/22 07/21/22 History fluticasone fur. 100 mcg-umeclid 1 puff inhalation DAILY 07/22/22 08/10/22 07/22/22 History 62.5 mcg-vilant 25 mcg inhalat.powder (Trelegy Ellipta) insulin glargine 100 unit/mL (3 17 unit subcut BEDTIME 07/22/22 08/10/22 07/21/22 History mL) subcutaneous pen (Basaglar KwikPen U-100 Insulin) methocarbamol 750 mg tablet 1 tab PO DAILY PRN low back pain 07/22/22 08/10/22 Unknown History Exam Exam Date and Time: August 10, 2022 184 Height,Weight and Vital Signs: Height 5 ft 6 in Weight 108.862 kg Last Vital Signs Temp 97.2 F 08/10/22 17:03 Pulse 45 L 08/10/22 17:57 Resp 18 08/10/22 17:57 BP 124/51 L 08/10/22 17:57 Pulse Ox 100 08/10/22 17:57 O2 Del Method 08/10/22 17:57 O2 Flow Rate 2 08/10/22 17:57 Pertinent Lab Results Pertinent Lab Results: Laboratory Tests 08/10/22 08/10/22 11:31 16:31 POC Glucose 142 H 98 Airway Mallampati Class: IV TM Dist: >3cm Neck ROM: Limited Denture: Upper and Lower Assessment and Plan Assessment Anesthesia Assessment: Anesthesia Plan Discussed and Chart Reviewed Final Anesthetic Review Family History of Problems with Anesthesia: No History of Problems with Anesthesia: No NPO: Yes ASA Class: IV and Emergency Final Preanesthetic Review: No Changes in Pt Med Stat, Meds/Allgs Chart Reviewed, Consent Obtained/Reviewed and Anes Risks/Benef Reviewed Patient Risk: Intermediate Procedure Risk: Intermediate Anesthetic Plan Anesthetic Plan: GA Disposition: Standard PACU
[2022-08-10] MEDS: ceFAZolin Sodium/Dextrose,Iso 2 GM/50 ML PIGGYBACK IV (19:14)
--- NOTE | 2022-08-10 22:10 | W.PM.OPN ---
Operative Note Operative Note Date of Service: 08/10/22 Narrative: Preoperative diagnosis: Sick sinus syndrome Postoperative diagnosis: Same Operation: Placement of dual-chamber permanent pacemaker with fluoroscopic guidance Surgeon: Cash Connor MD Specimens: None EBL: 5 cc Operative findings: The pacemaker placed was a Medtronic serial [id number]. The atrial lead was a Medtronic serial [id number]. The ventricular lead was a Medtronic [id number]. Parameters in the right atrial lead sensing was 2.0 with an impedance of 494 and a threshold of 0.5 volts at 0.4 milliseconds. In the ventricular lead threshold was 1 volt at 0.4 milliseconds with an impedance of 779 Ohms and R-wave of 6.0 mV. Patient tolerated procedure well. Operation in detail: The patient was brought to the operating room, placed supine on the operating room table, anesthesia moderate of ices were placed, and the patient was gently sedated. A time-out was performed confirming the correct patient site and procedure. After injection of local anesthetic, a 3 cm incision was made in the left infraclavicular region on the right side as the patient is left handed and carried down to the pectoralis fascia with electrocautery. The patient was then placed in Trendelenburg and an 18 gauge needle was used to Try an access the subclavian vein however this was unsuccessful. We then did steeper Trendelenburg and using fluoro attempted to get access with the anatomic landmarks as the patient was quite large however we were unsuccessful in after about an hour and a half with multiple attempts. The fluoroscopy was used to ensure that there was no gross pneumothorax we decided to go to the other side. The drapes were taken down and the patient was then prepped and draped on the left side. On this side using an 18 gauge needle it was easy toaccess subclavian vein on the 1st take. And a wire was placed into the right atrium under fluoroscopic guidance. A 2nd 18 gauge needle was then used to access the subclavian vein again on the 1st ache and a wire was placed under fluoroscopic guidance and parked in the right atrium. The patient was then taken out of Trendelenburg and a pocket was formed using blunt and electrocautery dissection. The 1st 6 Australian sheath was then placed over wire and the wire and dilator were removed. The ventricular lead was then placed through the sheath and parked in the right atrium and the peel-away sheath was removed. After several attempts using a curved stylet we were eventually able to access the right ventricle and the tip of the lead was positioned at the right ventricular apex. The endocardial screw was deployed and the lead was tested with excellent parameters above. This lead was then secured with silk sutures to the pectoralis fascia. The 2nd 6 Australian sheath was then placed over the 2nd wire and a wire dilator removed. The atrial lead was then placed and parked in the right atrium. AJ stylet was used to position this in the right atrial appendage. The endocardial screws deployed and the lead was tested with excellent parameters above. This lead was also secured with silk sutures to the pectoralis fascia. The pocket was then copiously irrigated with antibiotic solution. The leads were then placed in their appropriate receptacles and the pacemaker was tested again with excellent parameters. The generator and excess lead was then placed into the pocket. The wound was then closed with a deep running 3-0 Vicryl suture followed by running 3-0 Vicryl suture and Dermabond glue in the skin. The patient was then brought back to the recovery room in stable condition.
[2022-08-10] MEDS: Acetaminophen 1,000 MG/100 ML PIGGYBACK 400 MG IV (22:53)
[2022-08-10 22:54] LABS: Hematocrit 37.3 % (42.0-52.0); Hemoglobin 12.4 g/dl (14.0-18.0); Mean Corpuscular HGB Conc 33.2 g/dl (31.0-36.0); Mean Corpuscular Hemoglobin 30.2 pg (27.0-33.0); Mean Platelet Volume 8.5 fL (9.4-12.4); Platelet Count 223 X10*3/uL (160-400); White Blood Count 12.7 X10*3/uL (4.8-10.8)
[2022-08-10 23:12] LABS: Anion Gap 11 (12-20); Blood Urea Nitrogen 13 mg/dL (9-16); Calcium 8.2 mg/dL (8.4-10.2); Carbon Dioxide 25 mmol/L (22-29); Chloride 103 mmol/L (96-108); Creatinine Clr Calc Pharmacy 66.9; Estimated Glomerular Filt Rate > 60; Glucose Random 144 mg/dL (60-115); Potassium 4.2 mmol/L (3.3-5.1); Sodium 135 mmol/L (135-145)
[2022-08-10] MEDS: Acetaminophen 325 MG TABLET 650 MG PO (23:35)
[2022-08-11 03:52] VITALS: BP 134/60; PULSE 60; RESP 16; TEMP 36.1; O2SAT 98
[2022-08-11] MEDS: Lactated Ringers 1,000 ML 50 ML IVCONT (03:57)
[2022-08-11 06:38] LABS: Basophils Percent Auto 0.2 % (0-2); Eosinophils Percent Auto 0.1 % (0-4); Hematocrit 36.3 % (42.0-52.0); Hemoglobin 11.9 g/dl (14.0-18.0); Imm Gran Abs Auto 0.05 X10*3/uL (0.00-0.03); Imm Gran Pct Auto 0.5 % (0.0-0.4); Lymphocytes Absolute Auto 0.6 X10*3/uL (1.2-4.9); Lymphocytes Percent Auto 5.3 % (20-40); MANUAL DIFF FLAG SCAN; Mean Corpuscular HGB Conc 32.8 g/dl (31.0-36.0); Mean Corpuscular Hemoglobin 30.3 pg (27.0-33.0); Mean Corpuscular Volume 92.4 fL (80.0-98.0); Monocytes Absolute Auto 0.3 X10*3/uL (0.1-1.2); Monocytes Percent Auto 3.1 % (2-11); Neutrophils Absolute Auto 9.6 x10*3/uL (2.0-8.3); Neutrophils Percent Auto 90.8 % (45-73); Platelet Count 240 X10*3/uL (160-400); Red Blood Count 3.93 X10*6/uL (4.60-5.80); Red Cell Distribution Width 11.9 % (11.0-16.0); SCAN SMEAR FLAG 1; White Blood Count 10.6 X10*3/uL (4.8-10.8)
[2022-08-11 07:03] LABS: Anion Gap 16 (12-20); Blood Urea Nitrogen 16 mg/dL (9-16); Calcium 8.3 mg/dL (8.4-10.2); Carbon Dioxide 21 mmol/L (22-29); Chloride 103 mmol/L (96-108); Creatinine Clr Calc Pharmacy 68.8; Estimated Glomerular Filt Rate > 60; Glucose Random 220 mg/dL (60-115); Potassium 4.8 mmol/L (3.3-5.1); Sodium 135 mmol/L (135-145)
[2022-08-11 07:28] LABS: Glucose, Whole Blood 208 mg/dL (60-115)
[2022-08-11 07:46] VITALS: BP 117/56; PULSE 60; RESP 16; TEMP 36.3; O2SAT 97
[2022-08-11] MEDS: Apixaban 5 MG TABLET PO (08:03)
[2022-08-11] MEDS: Insulin Lispro 100 UNIT/ML 3 ML VIAL SUBCUT ×2 (08:03→11:42)
[2022-08-11] MEDS: 0.9 % Sodium Chloride Flush 3 ML SYRINGE IVFLUSH (08:03)
[2022-08-11 08:13] LABS: SLIDE REVIEW VERIFIED
--- NOTE | 2022-08-11 09:14 | MHC.CM.PN ---
IMM DELIVERED PT LIVES WITH IN A SINGLE FAMILY HOME. NO HOME SERVICES. USES A CPAP FOR SLEEP. USES A CANE FOR LONG DISTANCES OUT OF HOME. HAS COPY OF HCP AT HOME. COVID VAX X4. PCP DR. LI AT [facility]. DP: HOME, NO SERVICES ANTICIPATED. WILL TRANSPORT HOME. CM WILL CONTINUE TO FOLLOW.
--- NOTE | 2022-08-11 09:33 | PHA.MEDREC ---
Pharmacy Consult ? Medication Reconciliation Pharmacy has completed the medication reconciliation. Reviewed med rec done by nursing
--- NOTE | 2022-08-11 10:50 | P.DS_ITS ---
DS: Providers Provider Date of Service: 08/11/22 Date of admission: 08/10/22 15:06 Primary care physician: Jocelin Ocasio MD Consults: 08/10/22 13:23 Consult to Cardiology Routine Consulting Provider: Jake Townsend Reason for consultation: bradycardia Has provider been notified: No DS: Diagnosis Discharge Diagnosis (1) Sick sinus syndrome: Status: Acute DS: Summary Hospital Course Hospital Course: from initial hpi: Chief Complaint: Junctional bradycardia 77 year old man s/p cardioversion today for persistent atrial fibrillation with congestive heart failure.? Patient converted to sinus rhythm however developed significant pause and AV Wenckebach post cardioversion.? He had atropine 0.5 mg and epinephrine 0.1 mg administered successful cardioversion to normal sinus rhythm with sick sinus syndrome.? At this time the patient is requiring a pacemaker placement which will take place this evening.? Patient denies chest pain, shortness breath, nausea, vomiting, diarrhea.? His vital signs are stable with pulse in the 30s to 40s has been on full anticoagulation. hospital course: Patient was admitted for sick sinus syndrome status post cardioversion requiring pacemaker placement. Pacer placement was unremarkable. Patient will be discharged home. For diabetes use given insulin. For persistent atrial fibrillation he was continued on apixaban, amiodarone and metoprolol will be restarted. For hypertension he will continue lisinopril and metoprolol. Time Spent with Patient Time attestation: Total time managing care of this patient today ____ minutes. Discharge coordination time: Greater than 30 minutes Quality: Safe Use of Opioids Does Pt have an Active Cancer Diagnosis on the Problem List?: No Quality: Stroke Does the patient have a stroke diagnosis?: No Physical Exam Vital Signs: Vital Signs: Last Vital Signs Temp 97.3 F 08/11/22 07:46 Pulse 60 08/11/22 07:46 Resp 16 08/11/22 07:46 BP 117/56 L 08/11/22 07:46 Pulse Ox 97 08/11/22 07:46 O2 Del Method 08/11/22 07:46 O2 Flow Rate 2 08/11/22 07:46 BMI result Body Mass Index 38.7 General: AO X 3, no acute distress Resp: CTA bilateral, no accessory muscles used CVS: S1,S2,RRR GI: soft, non tender, non distended Neuro: motor grossly intact, alert Psych: appropriate affect, appropriate insight DS: Data Data Completed and Pending Completed studies during hospitalization [Text1]: Procedures [employer] of Cardiac Rhythm, Single (07/22/22) Labs on day of discharge: Laboratory Results - last 24 hr 08/10/22 08/10/22 08/10/22 11:31 16:31 22:49 WBC 12.7 H RBC 4.10 L Hgb 12.4 L Hct 37.3 L MCV 91.0 MCH 30.2 MCHC 33.2 RDW 12.0 Plt Count 223 MPV 8.5 L Immature Gran % (Auto) Neut % (Auto) Lymph % (Auto) [place] % (Auto) Eos % (Auto) Baso % (Auto) Lymph # (Auto) [place] # (Auto) Eos # (Auto) Baso # (Auto) Abs Immat Gran (auto) Absolute Neuts (auto) Absolute Nucleated RBC 0.000 Nucleated RBC % (auto) 0.0 Smear Tech's Comments Sodium Potassium Chloride Carbon Dioxide Anion Gap BUN Creatinine Estim Creat Clear Calc Estimated GFR POC Glucose 142 H 98 Random Glucose Calcium 08/10/22 08/11/22 08/11/22 22:49 06:08 06:08 WBC 10.6 RBC 3.93 L Hgb 11.9 L Hct 36.3 L MCV 92.4 MCH 30.3 MCHC 32.8 RDW 11.9 Plt Count 240 MPV 9.0 L Immature Gran % (Auto) 0.5 H Neut % (Auto) 90.8 H Lymph % (Auto) 5.3 L [place] % (Auto) 3.1 Eos % (Auto) 0.1 Baso % (Auto) 0.2 Lymph # (Auto) 0.6 L [place] # (Auto) 0.3 Eos # (Auto) 0.0 Baso # (Auto) 0.0 Abs Immat Gran (auto) 0.05 H Absolute Neuts (auto) 9.6 H Absolute Nucleated RBC 0.000 Nucleated RBC % (auto) 0.0 Smear Tech's Comments VERIFIED Sodium 135 135 Potassium 4.2 4.8 Chloride 103 103 Carbon Dioxide 25 21 L Anion Gap 11 L 16 BUN 13 16 Creatinine 1.07 1.04 Estim Creat Clear Calc 66.9 68.8 Estimated GFR > 60 > 60 POC Glucose Random Glucose 144 H 220 H Calcium 8.2 L 8.3 L 08/11/22 07:25 WBC RBC Hgb Hct MCV MCH MCHC RDW Plt Count MPV Immature Gran % (Auto) Neut % (Auto) Lymph % (Auto) [place] % (Auto) Eos % (Auto) Baso % (Auto) Lymph # (Auto) [place] # (Auto) Eos # (Auto) Baso # (Auto) Abs Immat Gran (auto) Absolute Neuts (auto) Absolute Nucleated RBC Nucleated RBC % (auto) Smear Tech's Comments Sodium Potassium Chloride Carbon Dioxide Anion Gap BUN Creatinine Estim Creat Clear Calc Estimated GFR POC Glucose 208 H Random Glucose Calcium Discharge Plan Discharge Anticipated Discharge Date/Time: 08/11/22 10:46 Patient Disposition: Home, Self-Care Discharge Diagnosis: SSS Referrals: Cash Connor MD [Physician] - 08/26/22 10:45 am Jocelin Ocasio MD [Primary Care Provider] - 1 Week Discharge Medications: Continued Eliquis 5 mg tablet 5 mg PO BID Qty: 180 2RF amiodarone 200 mg tablet 400 mg PO BID Qty: 16 0RF Rx Instructions: take 400mg twice daily for 4 days amiodarone 200 mg tablet 200 mg PO DAILY Qty: 30 1RF Rx Instructions: After you finish the Amiodarone 400mg twice daily, start this daily until further notice. methocarbamol 750 mg tablet 1 tab PO DAILY PRN (Reason: low back pain) insulin glargine [Basaglar KwikPen U-100 Insulin] 100 unit/mL (3 mL) insulin pen 17 unit subcut BEDTIME Trelegy Ellipta 100-62.5-25 mcg blister with device 1 puff inhalation DAILY metoprolol tartrate 25 mg Tablet 25 mg PO BID Qty: 60 0RF Protocol: Hold for SBP/HR < HOLD for SBP < : 90 HOLD for HR < : 60 albuterol sulfate 90 mcg/actuation HFA aerosol inhaler 2 puff inhalation Q4H PRN (Reason: wheezing) lisinopril 2.5 mg tablet 2.5 mg PO DAILY simvastatin 10 mg tablet 10 mg PO BEDTIME Discharge Orders: Discharge Order (Routine); Ordered 08/11/22 Ordered By: Luan Beavers Diet: Advance to usual diet Activity on Discharge: As tolerated Stand Alone Forms: Patient Portal Discharge page Activity Restrictions/Additional Instructions: ACTIVITY: * ARM MOVEMENT RESTRICTIONS: No lifting your left arm over your head or behind your back, no pushing/pulling/lifting anything >10lb with your left arm for 6- 8 weeks. This ensures the pacemaker wires stay in place and do not get pulled out accidentally. Make sure you are doing gentle range of motion exercises with the left arm (such as pendulum exercise) to make sure your elbow and shoulder do not get frozen up. * ARM SLING: Keep the sling on until tomorrow. You may then take the sling off and leave it off. HOWEVER, if you are noticing a difficulty limiting your left arm movement (as outline above) then wear your sling during the day to make sure you are adhering to the restrictions above. * Ask your doctor when you can expect to return to work. * You can still exercise. It is good for your body and your heart. Talk with your doctor about an exercise plan. INCISION CARE: * Remove the dressing over the incisions tomorrow and leave them open to air. * You may shower starting, tomorrow. Sponge bathe only until then. * Do not submerge yourself in water (baths, pools, etc.) for 2 weeks. * Monitor the incision for increased redness, swelling, bruising, pain, open area, or drainage. OTHER PRECAUTIONS: * Before you receive any treatment, tell all healthcare providers (including your dentist) that you have a pacemaker. * You will be given an ID card that contains information about your pacemaker. Always carry this card with you. You can show this card if your pacemaker sets off a metal detector. You should also show it to avoid screening with a hand-held security wand. * Keep your cell phone away from your pacemaker. Do not carry the phone in your shirt pocket, even it if is turned off. * Avoid strong magnets. Examples are those used in MRI's or in hand-held security wands. * Avoid strong electrical del toro. Examples are those made by radio transmitting towers, [facility] radios, and heavy-duty electrical equipment. * Avoid leaning over the open correa of a running car. A running engine creates an electrical field. Most household and yard appliances will not cause any problems. If you use any large power tools, such as an industrial implementation architect, talk with your doctor. WHEN TO CALL YOUR DOCTOR: Call your doctor immediately if you have any of the following: * Dizziness * Chest pain * Lack of energy * Fainting spells * Twitching chest muscles * Rapid pule or pounding heartbeat * Shortness of breath * Pain around your pacemaker * Fever above 100.4 F (38 C) or other signs of infection (redness, swelling, drainage, or warmth at the incision site). * Hiccups that will not stop FOLLOWUP APPOINTMENTS: * You have an appointment with Dr. Connor at the [facility] office on July 26 @ 10:45am for a postop appointment and pacemaker check. [facility] 1st floor next to the main hospital entrance * Call your health spa manager to make an appointment for the next couple weeks. Make regular follow-up appointments with your doctor. He or she will check the pacemaker to make sure it is working properly. Care Plan Goals: recovery Health Concerns: SSS Plan of Treatment: as above Assessment: as above Discharge Date/Time: 08/11/22 12:45
[2022-08-11 10:56] LABS: Glucose, Whole Blood 189 mg/dL (60-115)
[2022-08-11 11:07] VITALS: BP 137/63; PULSE 67; RESP 16; TEMP 36.1; O2SAT 94
--- NOTE | 2022-08-11 11:07 | MHC.CM.PN ---
DP: PT HAS BEEN MEDICALLY CLEARED FOR DC HOME, NO SERVICES. RN AWARE. [facility] WILL TRANSPORT HOME.
--- NOTE | 2022-08-11 12:06 | P.CONCA_ITS ---
History of Present Illness History of Present Illness Date of Service: 08/11/22 Requesting physician: Luan Beavers Chief complaint: Tachybrady syndrome Narrative: 77-year-old gentleman who presented for cardioversion for Afib. Post cardioversion he had sinus pause and required atropine. He had junctional rhythm afterwards. He was referred urgently for pacemaker placement and underwent pacemaker yesterday. He has been doing well since then. His wound side is stable. He is denying any significant issues. No shortness of breath. No chest pain other than the right chest wall. Pacemaker was interrogated and is functioning fine. [facility] Past Medical History Medical History COPD (chronic obstructive pulmonary disease) Diabetes History of cardioversion HTN (hypertension) Non-ST elevation [place] (NSTEMI) Obesity CARLOS on CPAP Paroxysmal atrial flutter PVCs (premature ventricular contractions) Family History Family History Father No problems noted. Mother No problems noted. Surgical History Surgical History History of arthroscopy of left knee Hx of hernia repair Hx of knee surgery Hx of laparoscopic gastric banding Hx of total knee arthroplasty Social History Social History Household Members: Spouse Household Members Other:: 1 Housing: House Do you presently have visiting nurse or other home services: No Alcohol intake: never Patient Tobacco Use Status: Former Tobacco user Quit Date: >40 yrs ago Tobacco use type: Cigarette e-Cigarette/Vaping Use: Never Used Second Hand Smoke Exposure: No service: No Current occupational status: retired [employer] Allergies Allergy/AdvReac Type Severity Reaction Status Date / Time No Known Allergies Allergy Verified 08/10/22 11:17 Active Medications: Current Medications Acetaminophen (Acetaminophen 325 Mg Tablet) 650 mg PO Q6H PRN PRN Reason: Pain, Mild (Pain Scale 1-3) Last Admin: 08/10/22 23:35 Dose: 650 mg Acetaminophen (Acetaminophen 325 Mg Tablet) 650 mg PO Q6H PRN PRN Reason: Pain, Mild (Pain Scale 1-3) Albuterol Sulfate (Albuterol Sulfate 90 Mcg 8 Gm Inhaler) 2 puff INHALE Q4H PRN PRN Reason: wheezing Apixaban (Apixaban 5 Mg Tablet) 5 mg PO BID [facility] Last Admin: 08/11/22 08:03 Dose: 5 mg Atorvastatin Calcium (Atorvastatin Calcium 10 Mg Tablet) 10 mg PO BEDTIME [facility] Last Admin: 08/10/22 23:23 Dose: Not Given Dextrose (Dextrose 50 % 25 Gm/50 Ml Syringe) 25 gm IVPUSH Q15M PRN; Protocol PRN Reason: per Hypoglycemia Standing Ord. Fentanyl (Fentanyl Citrate/Pf 100 Mcg/2 Ml Vial) 50 mcg IVPUSH Q5M PRN; Protocol PRN Reason: Pain, Severe (Pain Scale 7-10) Glucose (Glucose Gel 15 Gm Gel..Gram.) 15 gm PO Q15M PRN; Protocol PRN Reason: per Hypoglycemia Standing Ord. Insulin Glargine (Insulin Glargine,Hum.Rec.Anlog 100 Unit/Ml 10 Ml Vial) 17 unit SUBCUT BEDTIME [facility] Last Admin: 08/10/22 23:23 Dose: Not Given Insulin Human Lispro (Insulin Lispro 100 Unit/Ml 3 Ml Vial) 0 unit SUBCUT QIDACHS [facility]; Protocol Last Admin: 08/11/22 11:42 Dose: 2 unit Non-Formulary Medication (Otbyqfhvewa-Psbrissso-Jilwslvm [Trelegy Ellipta]) 1 puff INHALE DAILY [facility] Ondansetron HCl (Ondansetron Hcl 4 Mg/2 Ml Vial) 4 mg IVPUSH ONCE PRN PRN Reason: Nausea and Vomiting Sodium Chloride (0.9 % Sodium Chloride Flush 3 Ml Syringe) 3 ml IVFLUSH QSHIFT [facility] Last Admin: 08/11/22 08:03 Dose: 3 ml Home Medications Medication Instructions Recorded Confirmed Last Taken Type albuterol sulfate 90 mcg/actuation 2 puff inhalation Q4H PRN wheezing 01/18/21 08/11/22 Unknown History aerosol inhaler lisinopril 2.5 mg tablet 2.5 mg PO DAILY 01/18/21 08/10/22 07/22/22 History simvastatin 10 mg tablet 10 mg PO BEDTIME 01/18/21 08/10/22 07/21/22 History fluticasone fur. 100 mcg-umeclid 1 puff inhalation DAILY 0108/10/22 07/22/22 History 62.5 mcg-vilant 25 mcg inhalat.powder (Trelegy Ellipta) insulin glargine 100 unit/mL (3 17 unit subcut BEDTIME 07/22/22 08/10/22 07/21/22 History mL) subcutaneous pen (Basaglar KwikPen U-100 Insulin) methocarbamol 750 mg tablet 1 tab PO DAILY PRN low back pain 07/22/22 08/10/22 Unknown History Physical Exam Vital Signs: Vital Signs: Last Vital Signs Temp 97.0 F 08/11/22 11:07 Pulse 67 08/11/22 11:07 Resp 16 08/11/22 11:07 BP 137/63 08/11/22 11:07 Pulse Ox 94 08/11/22 11:07 O2 Del Method 08/11/22 11:07 O2 Flow Rate 2 08/11/22 07:46 BMI result Body Mass Index 38.7 GENERAL APPEARANCE: in no acute distress, pleasant. NECK: no carotid bruit, no jugular venous distention. SKIN: no suspicious lesions, warm and dry. Right chest wall pacemaker site looks stable. HEART: no murmurs, regular rate and rhythm. LUNGS: clear to auscultation bilaterally. ABDOMEN: soft, nontender. EXTREMITIES: no edema. PERIPHERAL PULSES: equal. NEUROLOGIC: No gross deficits, AAO X 3 Objective Labs and Meds 08/11/22 06:08 08/11/22 06:08 Lab results: Laboratory Results - last 24 hr 08/10/22 08/10/22 08/10/22 16:31 22:49 22:49 WBC 12.7 H RBC 4.10 L Hgb 12.4 L Hct 37.3 L MCV 91.0 MCH 30.2 MCHC 33.2 RDW 12.0 Plt Count 223 MPV 8.5 L Immature Gran % (Auto) Neut % (Auto) Lymph % (Auto) [place] % (Auto) Eos % (Auto) Baso % (Auto) Lymph # (Auto) [place] # (Auto) Eos # (Auto) Baso # (Auto) Abs Immat Gran (auto) Absolute Neuts (auto) Absolute Nucleated RBC 0.000 Nucleated RBC % (auto) 0.0 Smear Tech's Comments Sodium 135 Potassium 4.2 Chloride 103 Carbon Dioxide 25 Anion Gap 11 L BUN 13 Creatinine 1.07 Estim Creat Clear Calc 66.9 Estimated GFR > 60 POC Glucose 98 Random Glucose 144 H Calcium 8.2 L 08/11/22 08/11/22 08/11/22 06:08 06:08 07:25 WBC 10.6 RBC 3.93 L Hgb 11.9 L Hct 36.3 L MCV 92.4 MCH 30.3 MCHC 32.8 RDW 11.9 Plt Count 240 MPV 9.0 L Immature Gran % (Auto) 0.5 H Neut % (Auto) 90.8 H Lymph % (Auto) 5.3 L [place] % (Auto) 3.1 Eos % (Auto) 0.1 Baso % (Auto) 0.2 Lymph # (Auto) 0.6 L [place] # (Auto) 0.3 Eos # (Auto) 0.0 Baso # (Auto) 0.0 Abs Immat Gran (auto) 0.05 H Absolute Neuts (auto) 9.6 H Absolute Nucleated RBC 0.000 Nucleated RBC % (auto) 0.0 Smear Tech's Comments VERIFIED Sodium 135 Potassium 4.8 Chloride 103 Carbon Dioxide 21 L Anion Gap 16 BUN 16 Creatinine 1.04 Estim Creat Clear Calc 68.8 Estimated GFR > 60 POC Glucose 208 H Random Glucose 220 H Calcium 8.3 L 08/11/22 10:50 WBC RBC Hgb Hct MCV MCH MCHC RDW Plt Count MPV Immature Gran % (Auto) Neut % (Auto) Lymph % (Auto) [place] % (Auto) Eos % (Auto) Baso % (Auto) Lymph # (Auto) [place] # (Auto) Eos # (Auto) Baso # (Auto) Abs Immat Gran (auto) Absolute Neuts (auto) Absolute Nucleated RBC Nucleated RBC % (auto) Smear Tech's Comments Sodium Potassium Chloride Carbon Dioxide Anion Gap BUN Creatinine Estim Creat Clear Calc Estimated GFR POC Glucose 189 H Random Glucose Calcium Imaging Radiologist's impression: Impressions Guidance Fluoroscopy 08/10/22 21:55 IMPRESSION: Fluoroscopy for pacer placement. Chest X-Ray 08/10/22 22:30 IMPRESSION: 1. Left-sided pacer with leads projecting over the right atrium and right ventricle. No pneumothorax. 2. Increased irregular opacities in the right upper lobe and lateral left upper lobe compared to a radiograph from 2019. These are nonspecific and could be associated with underlying asbestos-related lung disease, however an infectious/inflammatory process or malignancy cannot be excluded. Recommend correlation with an elective chest CT. Assessment and Plan (1) Sick sinus syndrome: Status: Acute Plan 77-year-old gentleman who underwent cardioversion for paroxysmal atrial fi brillation and congestive heart failure yesterday and developed sinus pause afterwards requiring atropine and vasopressors transiently. He was in a junctional rhythm and dyspnea and was made to place a permanent pacemaker. He is now status post permanent pacemaker and is doing well. Clinically stable right now. Pacemaker was interrogated and has been functioning fine. He should continue the amiodarone and metoprolol as before. Overall stable and can return home. He will follow-up with Dr. Arnett as outpatient. Thank you for allowing me to participate in the care of your patient. Please feel free to contact me if you have any questions. Time Spent With Patient Time: Total time managing care of this patient today ____ minutes. Procedures Date of Service Date of Service: 08/11/22
--- NOTE | 2022-08-11 15:31 | HO.POSTANES ---
Post Anesthesia Evaluation Post Anesthesia Evaluation Vital Signs: Vital Signs Temp Pulse Resp BP Pulse Ox O2 Del Method O2 Flow Rate 08/11/22 11:07 97.0 F 67 16 137/63 94 Room Air 08/11/22 07:46 97.3 F 60 16 117/56 L 97 Nasal Cannula 2 08/11/22 03:52 97.0 F 60 16 134/60 98 Nasal Cannula 2 Anesthesia: General Mental Status: Awake Pain Control: Satisfactory Nausea/Vomiting: None Hydration: Adequate Anesthesia-Related Issues: No Anes. Related Issues Comments: post-op for both cardioversion and urgent pacemaker placement
== END 2022-08-11 12:45 | disposition home or self-care (01) | DRG 243 ==
LOC: HO.IMC 15:06
PROVIDERS: Internal Medicine Cardiovascular Disease; Physician Assistant Medical; Surgery; Admitting Provider Nurse Practitioner Acute Care; PCP Internal Medicine; Visit Provider Internal Medicine
PROC: 5A2204Z Restoration of Cardiac Rhythm, Single (ICD-10-PCS; principal; 2022-08-10 12:30)
PROC: 0JH606Z Insertion of Pacemaker, Dual Chamber into Chest Subcutaneous Tissue and Fascia, Open Approach (ICD-10-PCS; principal; 2022-08-10 16:30)
DX: I49.5 Sick sinus syndrome (principal); E87.1 Hypo-osmolality and hyponatremia; I48.19 Other persistent atrial fibrillation; I44.1 Atrioventricular block, second degree; G47.33 Obstructive sleep apnea (adult) (pediatric); I10 Essential (primary) hypertension; E66.9 Obesity, unspecified; Z68.38 Body mass index [BMI] 38.0-38.9, adult; I25.2 Old myocardial infarction; Z98.84 Bariatric surgery status; Z87.891 Personal history of nicotine dependence; Z79.4 Long term (current) use of insulin; Z79.01 Long term (current) use of anticoagulants; Z79.899 Other long term (current) drug therapy
CPT/HCPCS: 36415; 71045; 80048; 82947; 85025; 85027; 92960; 93005; C1785; C1892; C1898; J0131; J0171; J0690; J1100; J2370; J2405; J2795; J3010; J3370

== ENCOUNTER → 2022-08-24 10:47 | Outpatient (REF) | payer MEDICARE, BC, SELFPAY ==
--- NOTE | 2022-08-24 10:51 | HM_ITS ---
Conclusion: 1. Patient was monitored for total period of 3 days 2. Baseline was atrial fibrillation with average heart rate of 63 beats per minute 3. No significant pauses noted 4. Total of 1246 PVCs accounting for 0.46% total beats account for occasional PVCs 5. No patient reported events MTDD
== END ==
LOC: HO.CARD 10:47
PROVIDERS: PCP Internal Medicine; Visit Provider Internal Medicine Cardiovascular Disease
DX: I48.92 Unspecified atrial flutter (principal); I49.3 Ventricular premature depolarization
CPT/HCPCS: 93242

== ENCOUNTER → 2022-08-26 10:25 | Outpatient (BNVA) | payer MEDICARE, BC, SELFPAY | PROVIDERS: PCP Internal Medicine; Visit Provider Surgery | DX: Z13.89 Encounter for screening for other disorder (principal) ==

== ENCOUNTER → 2022-09-27 13:52 | Outpatient (BNVA) | payer MEDICARE, BC, SELFPAY | PROVIDERS: PCP Internal Medicine; Referring Provider Internal Medicine; Visit Provider Nurse Practitioner Family | DX: I48.19 Other persistent atrial fibrillation (principal); I49.5 Sick sinus syndrome; Z45.018 Encounter for adjustment and management of other part of cardiac pacemaker | CPT/HCPCS: 93005; 93280; 99212 ==

== ENCOUNTER 2022-10-11 13:35 | Emergency (ER) | payer MEDICARE, BC, SELFPAY ==
--- NOTE | ~2022-10-11 | XR_ITS ---
EXAMINATION: XR CHEST CLINICAL INFORMATION: Post intubation. COMPARISON: Multiple prior studies including Chest x-ray 08/10/2022. CT chest 06/08/2019 TECHNIQUE: Frontal portable view of the chest was obtained. 1433 hours FINDINGS: Left costophrenic angle excluded from the film. Tubes and lines: 1. Endotracheal tube catheter 4 cm above the hector. 2. Pacemaker leads in right atrium and right ventricle unchanged position since prior study. Redemonstration of the bilateral pleural calcifications. No acute airspace disease. No pulmonary vascular congestion. No pleural effusion or pneumothorax. XR/XR chest 1V IMPRESSION: 1. Endotracheal tube catheter 4 cm above the hector. 2. Pacemaker leads in right atrium and right ventricle unchanged position since prior study. 3. No acute abnormality of chest.
--- NOTE | ~2022-10-11 | CT_ITS ---
EXAMINATION: CT HEAD WITHOUT CONTRAST (STROKE PROTOCOL) CLINICAL INFORMATION: Stroke protocol. Left-sided weakness COMPARISON: None available. TECHNIQUE: Contiguous axial imaging was performed from the skull base to vertex without intravenous administration of contrast. This CT examination was performed using dose optimization techniques as appropriate, variously including the following: *Automated exposure control *Adjustment of mA and/or kV according to patient size (this includes techniques or standardized protocols for targeted exams where dose is matched to indication/reason for exam; i.e. extremities or head) *Use of iterative reconstruction technique DLP: 917 mGy-cm FINDINGS: There is patchy appearance of acute hyperdense intraparenchymal hemorrhage within the right occipital lobe with surrounding vasogenic edema. In addition, there is hyperdense subdural hemorrhage overlying the right cerebral hemisphere and tracking along the falx and tentorium. The subdural hematoma measures up to 0.7 cm in thickness. Furthermore, there is hyperdense hemorrhage tracking into the right lateral ventricle and third ventricle. There is subfalcine herniation: at the level of the frontal horns of lateral ventricles, there is approximately 1.4 cm of midline shift from right to left as well as associated right-sided uncal herniation. The carvajal-white matter differentiation is maintained. No findings of an acute major vascular territory infarction. There is effacement of lateral ventricles. No hydrocephalus. The brainstem and cerebellum are unremarkable. No evidence of calvarial fracture. The mastoid air cells, middle ear cavities and paranasal sinuses are well aerated. The orbits and temporomandibular joints are intact. CT/CT head for stroke IMPRESSION: There is acute multicompartment hemorrhage, as noted above, with subfalcine herniation and mild uncal herniation. Vasogenic edema surrounds the large area of intraparenchymal hemorrhage within the right occipital lobe. No evidence of an acute major vascular territory infarction. This critical result was discussed with Monica Turcios at 2:07 PM hours on 10/11/2022. It was ascertained that the content and urgency of the report was understood at the time of direct communication.
[2022-10-11 13:46] LABS: Prothrombin Time Whole Bld POC 15.2 sec (11.1-13.5); ~PT, ~INR - Anti Coag Clinic 1.3 (0.9-1.1)
[2022-10-11 13:47] LABS: Glucose, Whole Blood 147 mg/dL (60-115)
[2022-10-11 14:00] VITALS: BP 151/82; BP 165/85; PULSE 63; PULSE 64; RESP 22; O2SAT 98; BMI 36.6
--- NOTE | 2022-10-11 14:03 | ED.GENADULT ---
HPI - General Adult General Chief complaint: Fall <Timothy Turcios MD - Last Filed: 10/11/22 15:15> Stated complaint: STROKE ALERT,FALL W/LOC,MAYORGA /DIZZY PRIOR <Timothy Turcios MD - Last Filed: 10/11/22 15:15> Time Seen by Provider: 10/11/22 13:40 <Timothy Turcios MD - Last Filed: 10/11/22 15:15> Source: family and EMS <Timothy Turcios MD - Last Filed: 10/11/22 15:15> Limitations: altered mental status <Timothy Turcios MD - Last Filed: 10/11/22 15:15> History of Present Illness HPI narrative: Pt from home. Headache x 4 hours. Then Collapsed vomited hematemesis On Eliquis for Aflutter Left Igor Paresis per EMS Snoring respirations. <Timothy Turcios MD - Last Filed: 10/11/22 15:15> Related Data Home medications: Home Medications Medication Instructions Recorded Confirmed albuterol sulfate 90 mcg/actuation 2 puff inhalation Q4H PRN wheezing 01/18/21 09/27/22 aerosol inhaler lisinopril 2.5 mg tablet 2.5 mg PO DAILY 01/18/21 09/27/22 simvastatin 10 mg tablet 10 mg PO BEDTIME 01/18/21 09/27/22 fluticasone fur. 100 mcg-umeclid 1 puff inhalation DAILY 07/22/22 09/27/22 62.5 mcg-vilant 25 mcg inhalat.powder (Trelegy Ellipta) insulin glargine 100 unit/mL (3 17 unit subcut BEDTIME 07/22/22 09/27/22 mL) subcutaneous pen (Basaglar KwikPen U-100 Insulin) methocarbamol 750 mg tablet 750 mg PO DAILY PRN low back pain 09/27/22 09/27/22 Previous Rx's Medication Instructions Recorded apixaban 5 mg tablet (Eliquis) 5 mg PO BID #180 tabs 02/21/22 metoprolol tartrate 25 mg tablet 25 mg PO BID 90 days #180 tabs 09/01/22 amiodarone 200 mg tablet 200 mg PO DAILY #30 tabs 09/27/22 <Timothy Turcios MD - Last Filed: 10/11/22 15:15> Allergies/adverse reactions: Allergies Allergy/AdvReac Type Severity Reaction Status Date / Time No Known Allergies Allergy Verified 09/27/22 14:09 <Timothy Turcios MD - Last Filed: 10/11/22 15:15> Review of Systems Constitutional: Comments: Unk <Timothy Turcios MD - Last Filed: 10/11/22 15:15> [facility] [place] [place] Past Medical History Medical History: Medical History COPD (chronic obstructive pulmonary disease) Diabetes History of cardioversion HTN (hypertension) Non-ST elevation [place] (NSTEMI) Obesity CARLOS on CPAP Pacemaker (~2022) Paroxysmal atrial flutter PVCs (premature ventricular contractions) <Timothy Turcios MD - Last Filed: 10/11/22 15:15> Surgical History: Surgical History History of arthroscopy of left knee History of pacemaker Hx of hernia repair Hx of knee surgery Hx of laparoscopic gastric banding Hx of total knee arthroplasty <Timothy Turcios MD - Last Filed: 10/11/22 15:15> Family History Family History: Family History Father No problems noted. Mother No problems noted. <Timothy Turcios MD - Last Filed: 10/11/22 15:15> Social History Social History: Social History Household Members: Spouse Household Members Other:: 1 Housing: House Do you presently have visiting nurse or other home services: No Alcohol intake: never Patient Tobacco Use Status: Former Tobacco user Quit Date: >40 yrs ago Tobacco use type: Cigarette e-Cigarette/Vaping Use: Never Used Second Hand Smoke Exposure: No Advance Directives: No Advance Directives Information Provided: Yes service: No Current occupational status: retired <Timothy Turcios MD - Last Filed: 10/11/22 15:15> Physical Exam ED Vital Signs: Vital Signs - 24 hr 10/11/22 14:00 10/11/22 14:16 10/11/22 14:37 Pulse Rate 64 62 Respiratory Rate 22 H 8 L Blood Pressure 151/82 H 127/95 H Pulse Oximetry 98 95 Oxygen Delivery Method Nasal Cannula Nasal Cannula Oxygen Flow Rate 3 Fraction of Inspired Oxygen 60 10/11/22 14:51 10/11/22 15:01 Pulse Rate 63 Respiratory Rate 16 Blood Pressure 203/96 H 190/95 H Pulse Oximetry 100 Oxygen Delivery Method Mechanical Ventilation Oxygen Flow Rate Fraction of Inspired Oxygen BMI result Body Mass Index 36.6 <Timtohy Turcios MD - Last Filed: 10/11/22 15:15> Vital Signs - 24 hr 10/11/22 14:00 10/11/22 14:16 10/11/22 14:37 Pulse Rate 64 62 Respiratory Rate 22 H 8 L Blood Pressure 151/82 H 127/95 H Pulse Oximetry 98 95 Oxygen Delivery Method Nasal Cannula Nasal Cannula Oxygen Flow Rate 3 Fraction of Inspired Oxygen 60 10/11/22 14:51 10/11/22 15:01 Pulse Rate 63 Respiratory Rate 16 Blood Pressure 203/96 H 190/95 H Pulse Oximetry 100 Oxygen Delivery Method Mechanical Ventilation Oxygen Flow Rate Fraction of Inspired Oxygen BMI result Body Mass Index 36.6 <IZAIAH Ramirez - Last Filed: 10/11/22 14:34> Const Other: sonorous respirations Responds to verbal with yes and no <Timothy Turcios MD - Last Filed: 10/11/22 15:15> Eyes Other: Disconj gaze. Pupils midpoint and reactive <Timothy Turcios MD - Last Filed: 10/11/22 15:15> Resp Other: sonorous but equal <Timothy Turcios MD - Last Filed: 10/11/22 15:15> Cardio Other: RRR nor MRG <Timothy Turcios MD - Last Filed: 10/11/22 15:15> Skin Other: Warm and Dry <Timothy Turcios MD - Last Filed: 10/11/22 15:15> Neuro Other: Left Igor Paresis <Timothy Turcios MD - Last Filed: 10/11/22 15:15> Medications Administered Generic Name Dose Route Start Last Admin Trade Name Freq PRN Reason Stop Dose Admin Labetalol HCl 20 mg 10/11/22 14:45 10/11/22 14:47 Labetalol Hcl 100 Mg/20 Ml Vial IVPUSH 20 mg Q10M PRN Administration hypertension Discontinued Medications Generic Name Dose Route Start Last Admin Trade Name Freq PRN Reason Stop Dose Admin Prothrombin Complex Concent ( 80 mls @ 480 mls/hr 10/11/22 13:51 10/11/22 14:42 Human) 2,000 unit/ IV IV 10/11/22 13:52 Infused Miscellaneous Supplies .Q10M ONE Infusion Labetalol HCl 40 mg 10/11/22 14:52 10/11/22 14:54 Labetalol Hcl 100 Mg/20 Ml Vial IVPUSH 10/11/22 14:53 40 mg ONCE ONE Administration Midazolam HCl 6 mg 10/11/22 14:45 10/11/22 14:53 Midazolam Hcl/Pf 2 Mg/2 Ml Vial IVPUSH 10/11/22 14:46 6 mg ONCE ONE Administration Rocuronium [place] 50 mg 10/11/22 14:45 10/11/22 14:54 Rocuronium [place] 50 Mg/5 Ml Vial IVPUSH 10/11/22 14:46 50 mg ONCE ONE Administration <Timothy Turcios MD - Last Filed: 10/11/22 15:15> Medications Administered Generic Name Dose Route Start Last Admin Trade Name Freq PRN Reason Stop Dose Admin Labetalol HCl 20 mg 10/11/22 14:45 10/11/22 14:47 Labetalol Hcl 100 Mg/20 Ml Vial IVPUSH 20 mg Q10M PRN Administration hypertension Discontinued Medications Generic Name Dose Route Start Last Admin Trade Name Freq PRN Reason Stop Dose Admin Prothrombin Complex Concent ( 80 mls @ 480 mls/hr 10/11/22 13:51 10/11/22 14:42 Human) 2,000 unit/ IV IV 10/11/22 13:52 Infused Miscellaneous Supplies .Q10M ONE Infusion Labetalol HCl 40 mg 10/11/22 14:52 10/11/22 14:54 Labetalol Hcl 100 Mg/20 Ml Vial IVPUSH 10/11/22 14:53 40 mg ONCE ONE Administration Midazolam HCl 6 mg 10/11/22 14:45 10/11/22 14:53 Midazolam Hcl/Pf 2 Mg/2 Ml Vial IVPUSH 10/11/22 14:46 6 mg ONCE ONE Administration Rocuronium [place] 50 mg 10/11/22 14:45 10/11/22 14:54 Rocuronium [place] 50 Mg/5 Ml Vial IVPUSH 10/11/22 14:46 50 mg ONCE ONE Administration <IZAIAH Ramirez Last Filed: 10/11/22 14:34> Procedures Intubation Time out performed: Yes <IZAIAH Ramirez Last Filed: 10/11/22 14:34> sedative: Etomidate <IZAIAH Ramirez Last Filed: 10/11/22 14:34> Mg Given: 20 <IZAIAH Ramirez Last Filed: 10/11/22 14:34> paralytic: Succinylcholine <IZAIAH Ramirez Last Filed: 10/11/22 14:34> Mg Given: 100 <IZAIAH Ramirez Last Filed: 10/11/22 14:34> Laryngoscope: fiber optic video scope <IZAIAH Ramirez Last Filed: 10/11/22 14:34> Assist Device Used: fiber optic device <IZAIAH Ramirez Last Filed: 10/11/22 14:34> ET Tube Size: 8 <IZAIAH Ramirez Last Filed: 10/11/22 14:34> ET Tube Uncuffed: No <IZAIAH Ramirez Last Filed: 10/11/22 14:34> Tube Secured Depth (cm): 23 <IZAIAH Ramirez Last Filed: 10/11/22 14:34> Tube Secured Location: lips <IZAIAH Ramirez Last Filed: 10/11/22 14:34> Tube Placement Confirmation: visualized tube passing through cords, equal breath sounds bilaterally, no breath sounds over epigastrium and confirmation by capnometry <IZAIAH Ramirez Last Filed: 10/11/22 14:34> Patient Tolerated Procedure: well <IZAIAH Ramirez Last Filed: 10/11/22 14:34> Intubation Complications: none <IZAIAH Ramirez Last Filed: 10/11/22 14:34> Additional Comments: Confirmed by x-ray Done with my attending Dr. Turcios at bedside <IZAIAH Ramirez - Last Filed: 10/11/22 14:34> Medical Decision Making Medical Decision Making MDM Narrative: Stroke vs hemorrhage CT scan shows large multicompartmental bleed with midline shift and mild uncal herniation Call to [facility] Trauma Call to 2:12 PM Plan to intubate prior to transfer if he is full code. Awaiting call back from . 2:27 Pt Posturing more. Unable to wait for decision from family Pt intubated for airway protection Await trauma callback as well. Versed and Rocuronium for sedation, relaxation Post intubation xray shows good placement 2:47 pm Discussed with family. Full Code for now. Transfer to [facility] if accepted 3:[address] Kolb at [facility] ER. Accepted <Timothy Turcios MD - Last Filed: 10/11/22 15:15> Lab Data Result Diagrams: 10/11/22 14:11 10/11/22 14:11 <Timothy Turcios MD - Last Filed: 10/11/22 15:15> Labs: Lab Results 10/11/22 10/11/22 10/11/22 Range/Units 13:40 13:42 14:11 WBC 16.6 H (4.8-10.8) X10*3/uL RBC 4.62 (4.60-5.80) X10*6/uL Hgb 14.1 (14.0-18.0) g/dl Hct 42.2 (42.0-52.0) % MCV 91.3 (80.0-98.0) fL MCH 30.5 (27.0-33.0) pg MCHC 33.4 (31.0-36.0) g/dl RDW 13.6 (11.0-16.0) % Plt Count 179 D (160-400) X10*3/uL MPV 9.1 L (9.4-12.4) fL Immature Gran % (Auto) 0.4 (0.0-0.4) % Neut % (Auto) 81.6 H (45-73) % Lymph % (Auto) 9.3 L (20-40) % [place] % (Auto) 6.8 (2-11) % Eos % (Auto) 1.1 (0-4) % Baso % (Auto) 0.8 (0-2) % Lymph # (Auto) 1.5 (1.2-4.9) X10*3/uL [place] # (Auto) 1.1 (0.1-1.2) X10*3/uL Eos # (Auto) 0.2 (0.0-0.4) X10*3/uL Baso # (Auto) 0.1 (0.0-0.2) X10*3/uL Abs Immat Gran (auto) 0.07 H (0.00-0.03) X10*3/uL Absolute Neuts (auto) 13.5 H (2.0-8.3) x10*3/uL Absolute Nucleated RBC 0.000 (0.0-0.012) X10*3/uL Nucleated RBC % (auto) 0.0 (0.0-0.2) /100WBC PT (10.0-13.1) SEC Whole Blood PT 15.2 H (11.1-13.5) sec INR (0.9-1.1) Whole Blood INR 1.3 H (0.9-1.1) Sodium (135-145) mmol/L Potassium (3.3-5.1) mmol/L Chloride (96-108) mmol/L Carbon Dioxide (22-29) mmol/L Anion Gap (12-20) BUN (9-16) mg/dL Creatinine (0.5-1.4) mg/dL Estim Creat Clear Calc Estimated GFR POC Glucose 147 H (60-115) mg/dL Random Glucose (60-115) mg/dL Calcium (8.4-10.2) mg/dL Total Bilirubin (0.0-1.0) mg/dL AST (5-37) U/L ALT (0-40) U/L Alkaline Phosphatase (39-117) U/L Troponin I High Sens (<3.5-35.0) ng/L Total Protein (6.5-8.0) g/dL Albumin (3.5-5.0) g/dL COVID-19 ([facility]) (Negative) COVID-19 Clin Com 10/11/22 10/11/22 10/11/22 Range/Units 14:11 14:11 14:11 WBC (4.8-10.8) X10*3/uL RBC (4.60-5.80) X10*6/uL Hgb (14.0-18.0) g/dl Hct (42.0-52.0) % MCV (80.0-98.0) fL MCH (27.0-33.0) pg MCHC (31.0-36.0) g/dl RDW (11.0-16.0) % Plt Count (160-400) X10*3/uL MPV (9.4-12.4) fL Immature Gran % (Auto) (0.0-0.4) % Neut % (Auto) (45-73) % Lymph % (Auto) (20-40) % [place] % (Auto) (2-11) % Eos % (Auto) (0-4) % Baso % (Auto) (0-2) % Lymph # (Auto) (1.2-4.9) X10*3/uL [place] # (Auto) (0.1-1.2) X10*3/uL Eos # (Auto) (0.0-0.4) X10*3/uL Baso # (Auto) (0.0-0.2) X10*3/uL Abs Immat Gran (auto) (0.00-0.03) X10*3/uL Absolute Neuts (auto) (2.0-8.3) x10*3/uL Absolute Nucleated RBC (0.0-0.012) X10*3/uL Nucleated RBC % (auto) (0.0-0.2) /100WBC PT 15.0 H (10.0-13.1) SEC Whole Blood PT (11.1-13.5) sec INR 1.3 H (0.9-1.1) Whole Blood INR (0.9-1.1) Sodium 139 (135-145) mmol/L Potassium 4.4 (3.3-5.1) mmol/L Chloride 106 (96-108) mmol/L Carbon Dioxide 23 (22-29) mmol/L Anion Gap 14 (12-20) BUN 15 (9-16) mg/dL Creatinine 1.04 (0.5-1.4) mg/dL Estim Creat Clear Calc 80.3 Estimated GFR > 60 POC Glucose (60-115) mg/dL Random Glucose 161 H (60-115) mg/dL Calcium 8.5 (8.4-10.2) mg/dL Total Bilirubin 1.0 (0.0-1.0) mg/dL AST 23 (5-37) U/L ALT 21 (0-40) U/L Alkaline Phosphatase 61 (39-117) U/L Troponin I High Sens 4.8 D (<3.5-35.0) ng/L Total Protein 6.3 L (6.5-8.0) g/dL Albumin 3.7 (3.5-5.0) g/dL COVID-19 ([facility]) (Negative) COVID-19 Clin Com 10/11/22 Range/Units 14:11 WBC (4.8-10.8) X10*3/uL RBC (4.60-5.80) X10*6/uL Hgb (14.0-18.0) g/dl Hct (42.0-52.0) % MCV (80.0-98.0) fL MCH (27.0-33.0) pg MCHC (31.0-36.0) g/dl RDW (11.0-16.0) % Plt Count (160-400) X10*3/uL MPV (9.4-12.4) fL Immature Gran % (Auto) (0.0-0.4) % Neut % (Auto) (45-73) % Lymph % (Auto) (20-40) % [place] % (Auto) (2-11) % Eos % (Auto) (0-4) % Baso % (Auto) (0-2) % Lymph # (Auto) (1.2-4.9) X10*3/uL [place] # (Auto) (0.1-1.2) X10*3/uL Eos # (Auto) (0.0-0.4) X10*3/uL Baso # (Auto) (0.0-0.2) X10*3/uL Abs Immat Gran (auto) (0.00-0.03) X10*3/uL Absolute Neuts (auto) (2.0-8.3) x10*3/uL Absolute Nucleated RBC (0.0-0.012) X10*3/uL Nucleated RBC % (auto) (0.0-0.2) /100WBC PT (10.0-13.1) SEC Whole Blood PT (11.1-13.5) sec INR (0.9-1.1) Whole Blood INR (0.9-1.1) Sodium (135-145) mmol/L Potassium (3.3-5.1) mmol/L Chloride (96-108) mmol/L Carbon Dioxide (22-29) mmol/L Anion Gap (12-20) BUN (9-16) mg/dL Creatinine (0.5-1.4) mg/dL Estim Creat Clear Calc Estimated GFR POC Glucose (60-115) mg/dL Random Glucose (60-115) mg/dL Calcium (8.4-10.2) mg/dL Total Bilirubin (0.0-1.0) mg/dL AST (5-37) U/L ALT (0-40) U/L Alkaline Phosphatase (39-117) U/L Troponin I High Sens (<3.5-35.0) ng/L Total Protein (6.5-8.0) g/dL Albumin (3.5-5.0) g/dL COVID-19 ([facility]) Negative (Negative) COVID-19 Clin Com See Note <Timothy Turcios MD - Last Filed: 10/11/22 15:15> Lab Results 10/11/22 10/11/22 10/11/22 Range/Units 13:40 13:42 14:11 WBC 16.6 H (4.8-10.8) X10*3/uL RBC 4.62 (4.60-5.80) X10*6/uL Hgb 14.1 (14.0-18.0) g/dl Hct 42.2 (42.0-52.0) % MCV 91.3 (80.0-98.0) fL MCH 30.5 (27.0-33.0) pg MCHC 33.4 (31.0-36.0) g/dl RDW 13.6 (11.0-16.0) % Plt Count 179 D (160-400) X10*3/uL MPV 9.1 L (9.4-12.4) fL Immature Gran % (Auto) 0.4 (0.0-0.4) % Neut % (Auto) 81.6 H (45-73) % Lymph % (Auto) 9.3 L (20-40) % [place] % (Auto) 6.8 (2-11) % Eos % (Auto) 1.1 (0-4) % Baso % (Auto) 0.8 (0-2) % Lymph # (Auto) 1.5 (1.2-4.9) X10*3/uL [place] # (Auto) 1.1 (0.1-1.2) X10*3/uL Eos # (Auto) 0.2 (0.0-0.4) X10*3/uL Baso # (Auto) 0.1 (0.0-0.2) X10*3/uL Abs Immat Gran (auto) 0.07 H (0.00-0.03) X10*3/uL Absolute Neuts (auto) 13.5 H (2.0-8.3) x10*3/uL Absolute Nucleated RBC 0.000 (0.0-0.012) X10*3/uL Nucleated RBC % (auto) 0.0 (0.0-0.2) /100WBC PT (10.0-13.1) SEC Whole Blood PT 15.2 H (11.1-13.5) sec INR (0.9-1.1) Whole Blood INR 1.3 H (0.9-1.1) Sodium (135-145) mmol/L Potassium (3.3-5.1) mmol/L Chloride (96-108) mmol/L Carbon Dioxide (22-29) mmol/L Anion Gap (12-20) BUN (9-16) mg/dL Creatinine (0.5-1.4) mg/dL Estim Creat Clear Calc Estimated GFR POC Glucose 147 H (60-115) mg/dL Random Glucose (60-115) mg/dL Calcium (8.4-10.2) mg/dL Total Bilirubin (0.0-1.0) mg/dL AST (5-37) U/L ALT (0-40) U/L Alkaline Phosphatase (39-117) U/L Troponin I High Sens (<3.5-35.0) ng/L Total Protein (6.5-8.0) g/dL Albumin (3.5-5.0) g/dL COVID-19 ([facility]) (Negative) COVID-19 Clin Com 10/11/22 10/11/22 10/11/22 Range/Units 14:11 14:11 14:11 WBC (4.8-10.8) X10*3/uL RBC (4.60-5.80) X10*6/uL Hgb (14.0-18.0) g/dl Hct (42.0-52.0) % MCV (80.0-98.0) fL MCH (27.0-33.0) pg MCHC (31.0-36.0) g/dl RDW (11.0-16.0) % Plt Count (160-400) X10*3/uL MPV (9.4-12.4) fL Immature Gran % (Auto) (0.0-0.4) % Neut % (Auto) (45-73) % Lymph % (Auto) (20-40) % [place] % (Auto) (2-11) % Eos % (Auto) (0-4) % Baso % (Auto) (0-2) % Lymph # (Auto) (1.2-4.9) X10*3/uL [place] # (Auto) (0.1-1.2) X10*3/uL Eos # (Auto) (0.0-0.4) X10*3/uL Baso # (Auto) (0.0-0.2) X10*3/uL Abs Immat Gran (auto) (0.00-0.03) X10*3/uL Absolute Neuts (auto) (2.0-8.3) x10*3/uL Absolute Nucleated RBC (0.0-0.012) X10*3/uL Nucleated RBC % (auto) (0.0-0.2) /100WBC PT 15.0 H (10.0-13.1) SEC Whole Blood PT (11.1-13.5) sec INR 1.3 H (0.9-1.1) Whole Blood INR (0.9-1.1) Sodium 139 (135-145) mmol/L Potassium 4.4 (3.3-5.1) mmol/L Chloride 106 (96-108) mmol/L Carbon Dioxide 23 (22-29) mmol/L Anion Gap 14 (12-20) BUN 15 (9-16) mg/dL Creatinine 1.04 (0.5-1.4) mg/dL Estim Creat Clear Calc 80.3 Estimated GFR > 60 POC Glucose (60-115) mg/dL Random Glucose 161 H (60-115) mg/dL Calcium 8.5 (8.4-10.2) mg/dL Total Bilirubin 1.0 (0.0-1.0) mg/dL AST 23 (5-37) U/L ALT 21 (0-40) U/L Alkaline Phosphatase 61 (39-117) U/L Troponin I High Sens 4.8 D (<3.5-35.0) ng/L Total Protein 6.3 L (6.5-8.0) g/dL Albumin 3.7 (3.5-5.0) g/dL COVID-19 ([facility]) (Negative) COVID-19 Clin Com 10/11/22 Range/Units 14:11 WBC (4.8-10.8) X10*3/uL RBC (4.60-5.80) X10*6/uL Hgb (14.0-18.0) g/dl Hct (42.0-52.0) % MCV (80.0-98.0) fL MCH (27.0-33.0) pg MCHC (31.0-36.0) g/dl RDW (11.0-16.0) % Plt Count (160-400) X10*3/uL MPV (9.4-12.4) fL Immature Gran % (Auto) (0.0-0.4) % Neut % (Auto) (45-73) % Lymph % (Auto) (20-40) % [place] % (Auto) (2-11) % Eos % (Auto) (0-4) % Baso % (Auto) (0-2) % Lymph # (Auto) (1.2-4.9) X10*3/uL [place] # (Auto) (0.1-1.2) X10*3/uL Eos # (Auto) (0.0-0.4) X10*3/uL Baso # (Auto) (0.0-0.2) X10*3/uL Abs Immat Gran (auto) (0.00-0.03) X10*3/uL Absolute Neuts (auto) (2.0-8.3) x10*3/uL Absolute Nucleated RBC (0.0-0.012) X10*3/uL Nucleated RBC % (auto) (0.0-0.2) /100WBC PT (10.0-13.1) SEC Whole Blood PT (11.1-13.5) sec INR (0.9-1.1) Whole Blood INR (0.9-1.1) Sodium (135-145) mmol/L Potassium (3.3-5.1) mmol/L Chloride (96-108) mmol/L Carbon Dioxide (22-29) mmol/L Anion Gap (12-20) BUN (9-16) mg/dL Creatinine (0.5-1.4) mg/dL Estim Creat Clear Calc Estimated GFR POC Glucose (60-115) mg/dL Random Glucose (60-115) mg/dL Calcium (8.4-10.2) mg/dL Total Bilirubin (0.0-1.0) mg/dL AST (5-37) U/L ALT (0-40) U/L Alkaline Phosphatase (39-117) U/L Troponin I High Sens (<3.5-35.0) ng/L Total Protein (6.5-8.0) g/dL Albumin (3.5-5.0) g/dL COVID-19 ([facility]) Negative (Negative) COVID-19 Clin Com See Note <IZAIAH Ramirez - Last Filed: 10/11/22 14:34> Critical Care Time Critical Care Time Critical Care Time: Yes <Timothy Turcios MD - Last Filed: 10/11/22 15:15> Total Critical Care Time: 120 <Timothy Turcios MD - Last Filed: 10/11/22 15:15> Attestation: CC time outside separately billable procedures <Timothy Turcios MD - Last Filed: 10/11/22 15:15> Discharge Plan Discharge Clinical Impression: Intracranial hemorrhage <Timothy Turcios MD - Last Filed: 10/11/22 15:15> Patient Disposition: [facility] <Timothy Turcios MD - Last Filed: 10/11/22 15:15> Transfer Details: Need Neurosurg and Trauma <Timothy Turcios MD - Last Filed: 10/11/22 15:15> Need Neurosurg and Trauma <IZAIAH Ramirez - Last Filed: 10/11/22 14:34> Prescriptions: No Action Eliquis 5 mg tablet 5 mg PO BID Qty: 180 2RF metoprolol tartrate 25 mg tablet 25 mg PO BID 90 Days Qty: 180 0RF Protocol: Hold for SBP/HR < HOLD for SBP < : 90 HOLD for HR < : 60 insulin glargine [Basaglar KwikPen U-100 Insulin] 100 unit/mL (3 mL) insulin pen 17 unit subcut BEDTIME Trelegy Ellipta 100-62.5-25 mcg blister with device 1 puff inhalation DAILY methocarbamol 750 mg tablet 750 mg PO DAILY PRN (Reason: low back pain) albuterol sulfate 90 mcg/actuation HFA aerosol inhaler 2 puff inhalation Q4H PRN (Reason: wheezing) lisinopril 2.5 mg tablet 2.5 mg PO DAILY simvastatin 10 mg tablet 10 mg PO BEDTIME amiodarone 200 mg tablet 200 mg PO DAILY Qty: 30 5RF <Timothy Turcios MD - Last Filed: 10/11/22 15:15>
--- NOTE | 2022-10-11 14:05 | MHC.EDTECH ---
@[id number] CALL PLACED TO [facility] PT TX LINE @ DR CRAFT REQUEST KATHIE ANSWERS AND ASKS TO SPEAK TO DR CRAFT FOR MORE MEDICAL INFO BEFORE TAKING PT INFO DR CRAFT TAKES OVER CALL RIGHT AWAY GIVES MEDICAL INFO AND PT INFO THEN TELLS ME THEY WILL CALL HIM BACK
[2022-10-11] MEDS: Hum Prothrombin Cplx(PCC)4Fact 2,000 UNIT in Container,Empty 0 ML 480 UNIT IV (14:12)
[2022-10-11 14:16] VITALS: BP 127/95; PULSE 62; RESP 8; O2SAT 95
[2022-10-11 14:21] LABS: MANUAL DIFF FLAG NO
--- NOTE | 2022-10-11 14:21 | MHC.EDTECH ---
@[phone] BRENDA BLANCHARD TEXTED WITH REQUEST TO COME DOWN FOR A TX FOR HEAD BLEED. BRENDA HERE TO DO PAPERWORK STILL WAITING FOR [facility] TO CALL US BACK @ THIS TIME
[2022-10-11 14:25] LABS: Basophils Absolute Auto 0.1 X10*3/uL (0.0-0.2); Basophils Percent Auto 0.8 % (0-2); Eosinophils Absolute Auto 0.2 X10*3/uL (0.0-0.4); Eosinophils Percent Auto 1.1 % (0-4); Hematocrit 42.2 % (42.0-52.0); Hemoglobin 14.1 g/dl (14.0-18.0); Imm Gran Abs Auto 0.07 X10*3/uL (0.00-0.03); Imm Gran Pct Auto 0.4 % (0.0-0.4); Lymphocytes Absolute Auto 1.5 X10*3/uL (1.2-4.9); Lymphocytes Percent Auto 9.3 % (20-40); Mean Corpuscular HGB Conc 33.4 g/dl (31.0-36.0); Mean Corpuscular Hemoglobin 30.5 pg (27.0-33.0); Mean Corpuscular Volume 91.3 fL (80.0-98.0); Mean Platelet Volume 9.1 fL (9.4-12.4); Monocytes Absolute Auto 1.1 X10*3/uL (0.1-1.2); Monocytes Percent Auto 6.8 % (2-11); Neutrophils Absolute Auto 13.5 x10*3/uL (2.0-8.3); Neutrophils Percent Auto 81.6 % (45-73); Platelet Count 179 X10*3/uL (160-400); Red Blood Count 4.62 X10*6/uL (4.60-5.80); Red Cell Distribution Width 13.6 % (11.0-16.0); White Blood Count 16.6 X10*3/uL (4.8-10.8)
--- NOTE | 2022-10-11 14:26 | MHC.EDTECH ---
@2989 2ND CALL PLACED TO [facility] PT TX LINE D/T NO CALL BACK YET @ DR CRAFT REQUEST DULCE ANSWERS AND STATES SHE WILL INVESTIGATE AND CALL BACK
[2022-10-11 14:27] LABS: INTERNATIONAL NORM RATIO 1.3 (0.9-1.1)
[2022-10-11 14:37] VITALS: BP 204/103; PULSE 63; O2SAT 100
[2022-10-11 14:42] LABS: Alanine Aminotransferase 21 U/L (0-40); Albumin Level 3.7 g/dL (3.5-5.0); Alkaline Phosphatase 61 U/L (39-117); Anion Gap 14 (12-20); Aspartate Amino Transferase 23 U/L (5-37); Blood Urea Nitrogen 15 mg/dL (9-16); Calcium 8.5 mg/dL (8.4-10.2); Carbon Dioxide 23 mmol/L (22-29); Chloride 106 mmol/L (96-108); Creatinine Clr Calc Pharmacy 80.3; Estimated Glomerular Filt Rate > 60; Glucose Random 161 mg/dL (60-115); Potassium 4.4 mmol/L (3.3-5.1); Sodium 139 mmol/L (135-145); Total Protein 6.3 g/dL (6.5-8.0)
--- NOTE | 2022-10-11 14:43 | MHC.EDTECH ---
@1446 3RD CALL PLACED TO [facility] PT TX LINE FOR TRAUMA ATTENDING TO CALL US BACK D/T NO CALL BACK @ THIS TIME
[2022-10-11] MEDS: Labetalol HCL 100 MG/20 ML VIAL 20 MG IVPUSH (14:47)
[2022-10-11 14:50] LABS: Troponin-I High Sensitivity 4.8 ng/L (<3.5-35.0)
[2022-10-11 14:51] VITALS: BP 203/96; PULSE 63; RESP 16; O2SAT 100
[2022-10-11] MEDS: Midazolam HCl/PF 2 MG/2 ML VIAL 6 MG IVPUSH (14:53)
[2022-10-11] MEDS: Labetalol HCL 100 MG/20 ML VIAL 40 MG IVPUSH (14:54)
[2022-10-11] MEDS: Rocuronium Bromide 50 MG/5 ML VIAL IVPUSH (14:54)
[2022-10-11 14:57] LABS: COVID-19 Test Negative (Negative); IDNOW Serial# 55D5AD1C
[2022-10-11 15:01] VITALS: BP 190/95
--- NOTE | 2022-10-11 15:41 | PC.NURSE ---
Pt arrived via EMS as a stroke alert, EMS reporting bloody emisis at home, found next to dresser, L side weakness, reported pt on blood thinners. pt brought straight to CT, Hemorrhage confirmed by MD. Pt posturing, snoring respirations noted. MD called family to clarify code status, family needed some time to make a choice. PT intubated d/t not protecting his airway, 23 at the lip, Xray confirmed placement. Pt given KCentra, 20 atomadate and 100 succ prior to intubation through 18g IV placed by ED staff. OG placed post intubation, confirmation with air injection. 50 Jermaine and 6 versed given at est of 1420 for sedation. EMS at bedside, transitioned to their equipment and vent, report given to Pamela in [facility] trauma ED. Dr. Jacobs accepting MD. EMS left at 1510 to bring pt to [facility]. Pt and son at bedside shortly prior to pt being transferred. Pt had BM while being intubated, attempted to place easley, however could not d/t patient anatomy.
--- NOTE | 2022-10-12 12:19 | MHC.EDTECH ---
SLIPPERS FOUND IN ROOM AFTER AMBULANCE LEFT WITH PT TO [facility] CALL PLACED TO /ABHIJIT @[phone] STATES TO THROW THEM AWAY, HE WILL NOT BE COMING HOME
== END 2022-10-11 15:10 | disposition short-term general hospital (02) ==
PROVIDERS: Emergency Provider Emergency Medicine; PCP Internal Medicine
DX: S06.5XAA Traumatic subdural hemorrhage with loss of consciousness status unknown, initial encounter (principal); W19.XXXA Unspecified fall, initial encounter; K92.0 Hematemesis; I48.0 Paroxysmal atrial fibrillation; Z95.0 Presence of cardiac pacemaker; Z79.01 Long term (current) use of anticoagulants; Z79.899 Other long term (current) drug therapy; Z79.02 Long term (current) use of antithrombotics/antiplatelets; Z79.4 Long term (current) use of insulin; Z87.891 Personal history of nicotine dependence; Z20.822 Contact with and (suspected) exposure to COVID-19; Y93.9 Activity, unspecified; Y92.019 Unspecified place in single-family (private) house as the place of occurrence of the external cause; Y99.9 Unspecified external cause status
CPT/HCPCS: 31500; 36415; 43762; 70450; 71045; 80053; 82947; 84484; 85025; 85610; 87635; 94002; 96365; 96375; 96376; 99285; J0330; J2250; J7168